=== PATIENT | female | born 1995 | race Caucasian/White ===

== ENCOUNTER 2024-11-08 10:56 | Outpatient (CLI) | payer OTHER, SELFPAY ==
[2024-11-08 11:39] LABS: Hematocrit 33.9 % (37.0-47.0); Hemoglobin 11.5 g/dL (12.0-15.0); Immature Platelet Fraction Pct 28.9 % (0.9-11.2); Mean Corpuscular HGB Conc 33.9 g/dl (32-36); Mean Corpuscular Hemoglobin 28.5 pg (26-34); Mean Corpuscular Volume 84.1 fl (80-100); Platelet Count Result 86 k/mm3 (150-375); Red Blood Count 4.03 M/mm3 (4.2-5.4); Red Cell Distribution Width 16.5 % (11.5-14.5); White Blood Count 10.4 K/mm3 (4.5-10.0)
[2024-11-08 11:55] LABS: Alanine Aminotransferase 15 U/L (6-35); Albumin Level 3.7 g/dL (3.5-5.1); Alkaline Phosphatase 50 U/L (38-126); Anion Gap 10 mmol/L (4-12); Aspartate Amino Transferase 16 U/L (14-36); Bilirubin,Total 0.2 mg/dL (0.2-1.3); Blood Urea Nitrogen 7 mg/dL (7-17); Calcium 8.9 mg/dL (8.4-10.2); Carbon Dioxide 22 mmol/L (22-30); Chloride 104 mmol/L (98-107); Estimated Glomerular Filt Rate > 60; Glucose 92 mg/dL (65-110); Potassium 3.7 mmol/L (3.4-5.0); Sodium 136 mmol/L (137-145); Uric Acid 3.4 mg/dL (2.5-7.5)
[2024-11-08 12:27] LABS: Hepatitis B Surface Antigen Negative (Negative); Rubella IgG Antibody 13.7 IU/ML
--- OUTSIDE RECORDS SUMMARY | 2024-11-08 12:37 | XMS_ITS | Data Portability ---
Author Organization [facility] Address [address] [place] [address] Care Team Providers Care Recruiting Manager Name Role Phone RONAK GUY Primary Care Provider Unavaila ble Assessment Encounter Date Assessment Date Assessment LastModified by Organization Details LastModified Time 05/22/2022 05/22/2022 27 yo; PMHx of anxiety / depression; presenting for contraceptive care. [email or web address] Not available 05/25/2022 00:27:06 11/29/2023 11/29/2023 Will start Zoloft 25 mg daily hydroxyzine 25 twice daily as needed for anxiety we will obtain blood work. She will let me know in a couple weeks by calling the office with an update in her condition otherwise regular visit in 4 months she was advised to see CLINICAL ACCOUNT SPECIALIST yearly she says it has been a year or 2 since last Pap advised to stay up-to-date on immunizations [email or web address] Not available 11/29/2023 23:08:29 Plan of Treatment Reminders Order Date Submit Date Provider Last Modified By Organization Details Last Modified Time Details Appointments None recorded. Lab lipid panel, serum 2023 024 [email or web address] [facility], [address] [facility] [address], [place], [address], 4 15:22:51 CMP, serum or plasma 2023 024 [id number] [facility], [address] [facility] [address], [place], [address], 4 15:22:51 CBC w/ auto diff 2023 024 [facility], [address], [address], [place], [address], 4 15:22:51 TSH, ultra-sens itive, serum 2023 024 [email or web address] [facility], [address] [facility] [address], [place], [address], 4 15:22:51 unlisted lab - T4, free 2023 024 [email or web address] [facility], [address] [facility], [place], [address], 4 15:22:51 T3, free, serum or plasma 2023 024 [email or web address] [facility], [address] [facility], [place], [address], 4 15:22:51 urinalysis , dipstick 2021 022 PAULO In-Office Order, Internal Use Only DO Not Attach Compendium DO Not Attach Compendium, Do Not Delete/merge, [id number] 11:45:56 vaginal pathogens panel, RUCHI+probe, vaginal fluid 2021 022 PAULO [facility], [address] [facility], [place], [address], 2 20:08:21 culture, urine 2021 022 PAULO [facility], [address], [address], [place], [address], 2 20:08:22 Referral None recorded. Procedures None recorded. Surgeries None recorded. Imaging None recorded. Medication Orders Zoloft 25 mg tablet 2023 [facility] #[id number], [address], [place], [place], [id number], 4 15:23:23 hydroxyzin e HCl 25 mg tablet 2023 024 [facility] #[id number], [address], [place], [place], [id number], 4 15:23:28 venlafaxin e ER 75 mg capsule,ex tended release 24 hr 2021 [facility][id number], [address], [place], [id number], 4 14:33:14 hydroxyzin e HCl 25 mg tablet 2021 022 [facility], [address], [place], [id number], 14:32:37 Patient TargetsNo targets recorded. Patient Instructions Encounter Date Encounter Id Patient Instructions Last Modified By Organization Details Last Modified Time 11/06/2021 [id number] I was present and available in the Family Medicine clinic to discuss this patient's care during the appointment. I agree with the resident's assessment and plan as documented. Gilberto Rosado [email or web address] Not available 11/07/2021 08:54:16 11/27/2021 [id number] I was present and available in the Family Medicine clinic to discuss this patient's care for the duration of the appointment. I agree with the resident's assessment and plan as documented with the following addendum: None. Dr. Jameel Godinez MD Attending Physician, [facility]. [email or web address] Not available 12/07/2021 19:45:01 04/08/2022 [id number] I was present and available in the Family Medicine clinic to discuss this patient's care during the appointment. I agree with the resident's assessment and plan as documented. KGR [email or web address] Not available 04/15/2022 09:07:18 05/22/2022 [id number] I was present and available in the family medicine clinic to discuss the patient's care during the appointment and the case was discussed with me. I agree with the resident's assessment and plan as documented. HL [email or web address] Not available 05/25/2022 14:38:01 Reason for Referral None Reported. Results Created Date Observation Date Name Description Value Unit Range Abnormal Flag Note LastModifiedBy Organization Detail LastModifiedTime 04/08/20 22 04/10/2022 NUSWA B VAGIN ITIS PLUS (VG+) atopobium vaginae Modera te - 1 score Not Available [facility] ([facility]) [address] [facility], [place], [address], 04/16/2022 20:08:21 04/08/20 22 04/10/2022 NUSWA B VAGIN ITIS PLUS (VG+) bvab 2 High - 2 score abnormal Not Available [facility] ([facility]) [address] [facility], [place], [address], 04/16/2022 20:08:21 04/08/20 22 04/10/2022 NUSWA B VAGIN ITIS PLUS (VG+) megasphaera 1 High - 2 score abnormal Calcu late total score by jama g the 3 indiv idual bacte rial vagin osis (BV) marke r score s toget her. Total score is inter prete d as follo ws: Total score 0-1: Indic ates the absen ce of BV. Total score 2: Indet ermin ate for BV. Addit ional clini parag data shoul d be evalu ated to estab gustavo a diagn osis. Total score 3-6: Indic ates the prese nce of BV. This test was devel oped and its perfo rmanc e shawn cteri stics deter mined by [facility]. It has not been clear ed or appro kristen by the Food and Drug Admin istra tion. Not Available [facility] ([facility]) [address] [facility], [place], [address], 04/16/2022 20:08:21 04/08/20 22 04/10/2022 NUA B VAGIN ITIS PLUS (VG+) joe albicans, RUCHI Negati ve negati ve Not Available [facility] ([facility]) [address] [facility], [place], [address], 04/16/2022 20:08:21 04/08/20 22 04/10/2022 NUSWA B VAGIN ITIS PLUS (VG+) joe glabrata, RUCHI Negati ve negati ve Not Available [facility] ([facility]) [address] [facility], [place], [address], 04/16/2022 20:08:21 04/08/20 22 04/16/2022 NUA B VAGIN ITIS PLUS (VG+) trich vag by RUCHI TNP Test not perfo rmed. Insuf ficie nt speci men to perfo rm or compl ete sruthi sis. Not Available [facility] ([facility]) [address] [facility] [address] [facility], [place], [address], 04/16/2022 20:08:21 04/08/20 22 04/16/2022 NUA B VAGIN ITIS PLUS (VG+) chlamydia trachomatis, RUCHI TNP Test not perfo rmed. Insuf ficie nt speci men to perfo rm or compl ete sruthi sis. Not Available [facility] ([facility]) [address] [facility], [place], [address], 04/16/2022 20:08:21 04/08/20 22 04/16/2022 NUA B VAGIN ITIS PLUS (VG+) neisseria gonorrhoeae, RUCHI TNP Test not perfo rmed. Insuf ficie nt speci men to perfo rm or compl ete sruthi sis. Not Available [facility] ([facility]) [address] [place], [address], 04/16/2022 20:08:21 04/08/20 22 04/09/2022 URINE CULTU RE, ROUTI NE urine culture, routine TNP Test not perfo rmed. No urine speci men was recei kristen for cultu re. Not Available [facility] ([facility]) [address] [place], [address], 04/16/2022 20:08:22 04/08/20 22 04/09/2022 SPECI MEN STATU S REPOR T specimen status report TNP Test not perfo rmed. No urine speci men was recei kristen for cultu re. TEST: [id number] Urine Cultu re, Routi ne Not Available [facility] ([facility]) [address] [place], [address], 04/16/2022 20:08:23 04/08/20 22 04/16/[address] PROBL EM request problem TNP Test not perfo rmed. Insuf ficie nt speci men to perfo rm or compl ete sruthi sis. TEST: [id number] 7 Trich vag by RUCHI Panel : 1 [id number] 7 Chlam ydia trach omati s, RUCHI Panel : 1 [id number] 4 Neiss eria gonor rhoea e, RUCHI Panel : [id number] 1 Not Available [facility] ([facility]) [address] [place], [address], 04/16/2022 20:08:23 04/08/20 22 04/08/2022 urina lysis , dipst ick Leukocytes Small Not Available In-Offi ce Order Internal Use Only DO Not Attach Compendium DO Not Attach Compendium, Do Not Delete/merge, [id number] 04/08/2022 10:34:48 04/08/20 22 04/08/2022 urina lysis , dipst ick Nitrite negati ve Not Available In-Office Order Internal Use Only DO Not Attach Compendium DO Not Attach Compendium, Do Not Delete/merge, [id number] 04/08/2022 10:34:48 04/08/20 22 04/08/2022 urina lysis , dipst ick Urobilinogen .2 Not Available In-Of fice Order Internal Use Only DO Not Attach Compendium DO Not Attach Compendium, Do Not Delete/merge, 04/08/2022 10:34:48 04/08/20 22 04/08/2022 urina lysis , dipst ick Protein Negati ve Not Available In-Office Order Internal Use Only DO Not Attach Compendium DO Not Attach Compendium, Do Not Delete/merge, 04/08/2022 10:34:48 04/08/20 22 04/08/2022 urina lysis , dipst ick pH 5.0 Not Available In-Office Order Internal Use Only DO Not Attach Compendium DO Not Attach Compendium, Do Not Delete/merge, 04/08/2022 10:34:48 04/08/20 22 04/08/2022 urina lysis , dipst ick Blood Negati ve Not Available In-Office Order Internal Use Only DO Not Attach Compendium DO Not Attach Compendium, Do Not Delete/merge, 04/08/2022 10:34:48 04/08/20 22 04/08/2022 urina lysis , dipst ick Specific [place] 1.025 Not Available In-Off ice Order Internal Use Only DO Not Attach Compendium DO Not Attach Compendium, Do Not Delete/merge, 04/08/2022 10:34:48 04/08/20 22 04/08/2022 urina lysis , dipst ick Ketone Trace Not Available In-Office Order Internal Use Only DO Not Attach Compendium DO Not Attach Compendium, Do Not Delete/merge, 04/08/2022 10:34:48 04/08/20 22 04/08/2022 urina lysis , dipst ick Bilirubin Negati ve Not Available In-Office Order Internal Use Only DO Not Attach Compendium DO Not Attach Compendium, Do Not Delete/merge, 04/08/2022 10:34:48 04/08/20 22 04/08/2022 urina lysis , dipst ick Glucose Negati ve Not Available In-Office Order Internal Use Only DO Not Attach Compendium DO Not Attach Compendium, Do Not Delete/merge, 04/08/2022 10:34:48 04/08/20 22 04/08/2022 urina lysis , dipst ick Appearance Cloudy Not Available In-Offi ce Order Internal Use Only DO Not Attach Compendium DO Not Attach Compendium, Do Not Delete/merge, [id number] 04/08/2022 10:34:48 04/08/20 22 04/08/2022 urina lysis , dipst ick Color Dark Yellow Not Available In-Office Order Internal Use Only DO Not Attach Compendium DO Not Attach Compendium, Do Not Delete/merge, [id number] 04/08/2022 10:34:48 Result Notes None recorded. Problems Name Problem SNOMED Code Status Onset Date Resolution Date Notes Provider Name and Address Organization Details Recorded Time Generali zed anxiety disorder 25031917 Active 2017 Sage [place], [place] - [facility] 8 08:57:32 Tobacco user 181364210 Active 2018 2-3 cigarette s a day Kerrie [place], [place] - [facility] 9 15:21:37 Pregnanc y 79295512 Completed 201908/21/2020 ASHLEY [place], [place] - [facility] 1 16:17:45 Vulval pain 430210933 Active 2019 Prev healthy 25 pt at 23w4d presents for L labia minora pain and swelling x1 day. On exam, L labia minora swelling & tendernes s without any lesions, fluctuanc e or erythema. DDx developin g abscess vs early onset genital herpes. -Pt seen with attending physician , will empirical ly treat for genital herpes primary outbreak and abscess -Pain control with PRN tylenol, cool compress -F/u in office in 1 day -Discusse d with primary OB, Dr. Franco -Send for HSV testing -ER precautio ns include but not limited to worsening pain/redn ess/swell ing/fever s/chills Caitie [place], [place] - [facility] 0 13:39:07 Plantar fasciiti s 163118425 Active 2019 ASH[place], [place] - [facility] 17:07:38 Plantar fasciiti s 656302565 Completed 2019 Natalia Tyson MA null, [facility] SI 17:07:38 COVID-19 211902690 Active 2020 Kerrie Joan null, [facility] SI 15:21:18 Anxiety 49938062 Active 2023 Shawn Cruz MD Attn: Froilan tipton,[address] [facility], [place], [address] [place] [address] - [facility] 4 23:08:40 Problem Notes None recorded. Procedures Surgical History Date Name Laterality Status Provider Name and Address Organization Details Recorded Time 2 IUD Removal completed Kerrie Joan [facility] 11/06/2021 14:46:00 1 IUD Insertion completed [facility] Joan [facility] 12/20/2020 11:06:57 9 Control Implant Removal completed Kerrie Joan [facility] 06/14/2019 15:26:13 Imaging Results None recorded. Procedure Notes None recorded. Medical Equipment None Reported. Allergies No known drug allergies Medications Name Sig Start Date Stop Date Status Note LastModified by Organization Details LastModified Time Mirena 21 mcg/24 hr (up to 8 years) 52 mg intrauterin e device Take 1 device by intrauter ine route. 11/28 completed Not Available Not Available Not Available venlafaxine ER 75 mg capsule,ext ended release 24 hr Take 1 capsule every day by oral route. 11/28 completed Not Available Not Available Not Available Vitamin B-6 25 mg tablet Take 1 tablet nightly 11/27 completed Not Available Not Available Not Available ketoconazol e 2 % shampoo APPLY TO THE AFFECTED AREA(S), LATHER, LEAVE IN PLACE FOR 5 MINUTES, AND THEN RINSE OFF WITH WATER BY TOPICAL ROUTE TWICE A WEEK FOR FOUR WEEKS 11/28 completed Not Available Not Available Not Available lidocaine 4 % topical patch unwrap and apply 1 patch to affected area daily, remove and discard patch within 12 hour after placement 11/28 completed Not Available Not Available Not Available clindamycin HCl 300 mg capsule 09/14 completed Not Available Not Available Not Available polyethylen e glycol 3350 17 gram oral powder packet Take 1 packet every day by oral route. 07/16 completed Not Available Not Available Not Available azithromyci n 250 mg tablet TAKE 2 TABLETS BY MOUTH FOR 1 DAY THEN TAKE 1 TABLET BY MOUTH EVERY DAY FOR 4 DAYS 11/28 completed Not Available Not Available Not Available fluconazole 150 mg tablet Take 1 tablet once. If symptoms persist may repeat treatment in 48 hours 05/02 completed Not Available Not Available Not Available cephalexin 250 mg capsule 06/10 completed Not Available Not Available Not Available ondansetron HCl 4 mg tablet Take 1 tablet every 8 hours by oral route as needed. 11/27 completed Not Available Not Available Not Available metronidazo le 500 mg tablet Take 1 tablet twice a day by oral route as directed for 7 days. 11/28 completed Not Available Not Available Not Available amlodipine 5 mg tablet TAKE 1 TABLET BY MOUTH EVERY DAY 11/28 completed Not Available Not Available Not Available acyclovir 400 mg tablet Take 1 tablet every 8 hours by oral route for 7 days. 11/28 completed Not Available Not Available Not Available sulfamethox azole 800 mg-trimetho prim 160 mg tablet 05/02 completed Not Available Not Available Not Available famotidine 20 mg tablet 11/27 completed Not Available Not Available Not Available metoclopram phill 5 mg tablet Take 1 tablet every 6-8 hours by oral route for 5 days. 11/27 completed Not Available Not Available Not Available DOK 100 mg capsule Take 1 capsule every day by oral route as directed for 30 days. 11/27 completed Not Available Not Available Not Available meclizine 25 mg tablet Take 1 tablet 3 times a day by oral route as needed. 11/27 completed Not Available Not Available Not Available phenazopyri dine 100 mg tablet 11/27 completed Not Available Not Available Not Available benzonatate 100 mg capsule TAKE 1 CAPSULE BY MOUTH THREE TIMES DAILY FOR 10 DAYS 11/28 completed Not Available Not Available Not Available cephalexin 500 mg capsule Take 1 capsule every 8 hours by oral route for 5 days. 06/10 completed Not Available Not Available Not Available ferrous sulfate 325 mg (65 mg iron) tablet TAKE 1 TABLET BY MOUTH EVERY DAY 11/27 completed Not Available Not Available Not Available sertraline 25 mg tablet TAKE 1 TABLET BY MOUTH EVERY DAY active Not Available Not Available No t Available hydroxyzine HCl 25 mg tablet TAKE 1 TABLET BY MOUTH TWICE DAILY NEEDED active Not Available Not Available No t Available ibuprofen 600 mg tablet 11/27 completed Not Available Not Available Not Available polyethylen e glycol 3350 17 gram/dose oral powder Take 17 g by oral route as directed for 30 days. 11/27 completed Not Available Not Available Not Available methylpredn isolone 4 mg tablets in a dose pack FOLLOW PACKAGE DIRECTION S 11/28 completed Not Available Not Available Not Available sertraline 50 mg tablet TAKE 1 TABLET BY MOUTH EVERY MORNING 05/09 completed Not Available Not Available Not Available Unisom (doxylamine ) 25 mg tablet Take 1 tablet nightly 11/27 completed Not Available Not Available Not Available amoxicillin 500 mg-potassiu m clavulanate 125 mg tablet Take 1 tablet every 12 hours by oral route for 5 days. 05/02 completed Not Available Not Available Not Available hydroxyzine pamoate 25 mg capsule Take 1 capsule 4 times a day by oral route as needed. 12/15 completed Not Available Not Available Not Available cyclobenzap rine 5 mg tablet TK 1 T PO BID FOR 10 DAYS PRN 11/28 completed Not Available Not Available Not Available Tylenol 8 Hour 650 mg tablet,exte nded release Take 1 tablet every 8 hours by oral route. 11/27 completed Not Available Not Available Not Available escitalopra m 5 mg tablet Take 1 tablet every day by oral route. 12/11 completed Not Available Not Available Not Available nitrofurant oin monohydrate /macrocryst als 100 mg capsule Take 1 capsule every 12 hours by oral route for 5 days. 11/28 completed Not Available Not Available Not Available Dandruff Shampoo (selenium sulfide-gary e) 1 % Massage shampoo into wet scalp then rinse thoroughl y 05/02 completed Not Available Not Available Not Available butalbital- acetaminoph en-caffeine 50 mg-300 mg-40 mg capsule TAKE 1 CAPSULE BY MOUTH EVERY 8 HOURS NEEDED 11/28 completed Not Available Not Available Not Available Cyndi 08/28 (21) 1 mg-20 mcg tablet Take 1 tablet every day by oral route. 05/02 completed Not Available Not Available Not Available Annelise 0.25 mg-0.035 mg tablet Take 1 tablet every day by oral route. 11/28 completed Not Available Not Available Not Available ID NOW COVID-19 Test Kit TEST DIRECTED TODAY 11/28 completed Not Available Not Available Not Available Flowflex COVID-19 Antigen Home Test kit TEST DIRECTED TODAY 11/28 completed Not Available Not Available Not Available Vitals Date Recorded Body height Body mass index (BMI) Body weight Heart rate Body temperature Oxygen saturation Oxygen saturation in Arterial blood by Pulse oximetry Systolic blood pressure Diastolic blood pressure Provider Name and Address Organization Details Last Updated DateTime 2 157.48 cm 27.3 kg/m2 01450.2 6 g 82 /min 98.1 [degF] 97 % 97 % 132 mm[Hg] 84 mm[Hg] Jarod Lr CMA [facility] 2 12:34:22 Date Recorded Body height Body mass index (BMI) Body weight Heart rate Oxygen saturation Oxygen saturation in Arterial blood by Pulse oximetry Body temperature Systolic blood pressure Diastolic blood pressure Provider Name and Address Organization Details Last Updated DateTime 2 157.48 cm 28.4 kg/m2 03006.5 2 g 85 /min 95 % 95 % 98.5 [degF] 146 mm[Hg] 92 mm[Hg] Nikole Osman MA [facility] 2 16:18:31 Date Recorded Systolic blood pressure Diastolic blood pressure Provider Name and Address Organization Details Last Updated DateTime 11/27/2021 130 mm[Hg] 82 mm[Hg] Kerrie Franco [facility] 11/27/2021 16:26:23 Date Recorded Body height Body mass index (BMI) Body weight Body temperature Heart rate Oxygen saturation Oxygen saturation in Arterial blood by Pulse oximetry Systolic blood pressure Diastolic blood pressure Provider Name and Address Organization Details Last Updated DateTime 2 157.48 cm 27.4 kg/m2 74118.4 1 g 98.4 [degF] 93 /min 100 % 100 % 124 mm[Hg] 85 mm[Hg] Kathi Cook [place] - [facility] 2 10:17:55 Date Recorded Body height Body mass index (BMI) Body weight Body temperature Heart rate Oxygen saturation Oxygen saturation in Arterial blood by Pulse oximetry Systolic blood pressure Diastolic blood pressure Provider Name and Address Organization Details Last Updated DateTime 2 157.48 cm 27.3 kg/m2 96532.2 6 g 98.3 [degF] 74 /min 99 % 99 % 130 mm[Hg] 80 mm[Hg] Juliet Dong CMA [place] - [facility] 2 15:26:51 Date Recorded Body weight Body mass index (BMI) Body height Heart rate Body temperature Oxygen saturation Oxygen saturation in Arterial blood by Pulse oximetry Systolic blood pressure Diastolic blood pressure Provider Name and Address Organization Details Last Updated DateTime 4 11576.5 6 g 29.8 kg/m2 157.48 cm 92 /min 98.6 [degF] 98 % 98 % 132 mm[Hg] 86 mm[Hg] Reba Pak MA [place] - [facility] 4 14:43:32 Social History Question Answer Notes LastModified by Organizat ion Details LastModified Time Tobacco Smoking Status Former Smoker quit in 2015 Reba Pak MA [place], [place] - [facility] 11/29/2023 14:41:24 What Is Your Level Of Alcohol Consumption? Occasional Information not available 11/29/2023 Are You Blind Or Do You Have Difficulty Seeing? No Information not available 11/29/2023 Are You Deaf Or Do You Have Serious Difficulty Hearing? No Information not available 11/29/2023 What Was The Date Of Your Most Recent Tobacco Screening? 11/29/2023 Information not available 11/29/2023 What Is Your Relationship Status? Information not available 11/29/2023 Do You Use Your Seat Belt Or Car Seat Routinely? Yes Information not available 11/29/2023 How Much Tobacco Do You Smoke? 1 PPW [email or web address] Information not available 06/14/2019 Do You Feel Stressed (tense, Restless, Nervous, Or Anxious, Or Unable To Sleep At Night)? [id number] Information not available 11/29/2023 Do You Use Any Illicit Or Recreational Drugs? No Information not available 04/30/2021 On What Date Was Tobacco Cessation Counseling Provided? 11/29/2023 Information not available 11/29/2023 How Many Years Have You Smoked Tobacco? 3 Information not available 11/29/2023 Do You Or Have You Ever Used Any Other Forms Of Tobacco Or Nicotine? No Information not available 04/30/2021 Sex: Unknown Functional Status Question Answer Note LastModified by Organization D etails LastModified Time Are you able to care for yourself? Yes Information n ot available 11/29/2023 Mental Status None recorded. Family History Nothing Reported. Medical History Condition Response Depression Y Anxiety Disorder Y Gynecological History Statement/Question Response Flow Moderate Frequency of Cycle (Q days) 90 Date of LMP 06/14/2019 Menses Monthly Y Duration of Flow (days) LMP Definite Obstetrics History GPAL:G 4 P 2 0 1 2 Type Value Full Term 2 Spontaneous 1 Living 2 Total 4 Immunizations Vaccine Type Date Status Note Provider Nam e and Address Organization Details Recorded Time COVID-19, mRNA, LNP-S, PF, 100 mcg/0.5mL dose or 50 mcg/0.25mL dose 1 completed Mirella Almeida null, [place] - [facility] 01/16/2021 10:41:07 Influenza, split virus, quadrivalent, preservative 0 completed Venita Trevino [place], [place] [facility] 05/23/2020 10:26:36 Tdap 0 completed Jovani Santiago CMA [place], [place] [facility] 06/03/2020 14:22:42 COVID-19, mRNA, LNP-S, PF, 30 mcg/0.3 mL dose 1 completed Mercedes Fierro RN null, [place] - [facility] 04/04/2021 10:18:59 Past Encounters Encounter ID Performer Location Encounter Start Date Encounter Closed Date Diagnosis/Indication Diagnosis SNOMED-CT Code Diagnosis ICD10 Code Diagnosis Note [id number] Chris Foster MD [place] [address] [address] [address] 12/07/2017 11:14:17 12/07/2017 13:38:20 Generalized anxiety disorder 83277574 F41.1 PARVEZ vs. Panic disorderGA D 7: Score 21PHQ-9: 17BP 152/94. Likely 2/2 anxiety. Patient declined BP re-check, states that it makes her more anxious. Patient also states she gets very anxious in social settings, especially with going to see the doctor. No hx of HTN. No SI or HI.Start Zoloft 50 mg PO daily. Given short script of Vistaril for emergency use only. F/u 6 weeks [id number] Mitzi Fallon MD [place] [address] [address] 12/15/2017 10:35:54 12/16/2017 13:05:20 Generalized anxiety disorder 61529771 F41.1 Mixed anxiety and depressive disorder +/- panic disorder. Prior hospitaliz ation x1 for panic attack. Started on zoloft 50/d x2 weeks ago with subjective improvemen t. Concerned about nighttime sedation with hydroxyzin e 25/qid prn. BP elevated, pt states no hx of HTN and attributes to anxiety with healthcare settings. PARVEZ 7: Score 21 (unchanged )PHQ-9: 18 (previousl y 17)No SI/HI - measure BP at home and record for next visit- RTC 1 month for new pt visit, mood/anxie ty follow-up- Rx for hydroxyzin e tablets instead of capsules, break in 1/2 for nighttime doses given unwanted/e xcessive sedation.- continue zoloft 50/d, titrate as needed next visit- repeat PHQ-9 and PARVEZ-7 each visit- consider counseling /CBT- encouraged daily exercise [id number] Mitzi Fallon MD [place] [address] [address] 05/04/2018 12:07:52 05/04/2018 13:54:54 Right upper quadrant pain [id number] R10.11 Suspect right upper quadrant pain secondary to cholelithi asis will get CMP and ultrasound to evaluate. Abnormal u terine bleeding [id number] 9100 N93.9 Patient has experience d frequent light menstrual bleeding throughout the course of the month while on her Nexplanon. Patient reports that her nexplanon placed almost 2 years ago. Bleeding 2x per month has been fairly persistent for the past 6-7 months. At today's visit requesting to have her Nexplanon removed however willing to trial course of OCPs to see if this helps alleviate the bleeding prior to deciding if Nexplanon removal is the right choice. Generalize d anxiety disorder [id number] F41.1 Patient reports her symptoms have been fairly well controlled on the sertraline however continues to experience a dizziness sensation with taking the 50 mg. Patient reports discontinu ed the 50 and has been taking 25 mg over the past month and this has alleviated the dizziness sensation. -Will decrease sertraline to 25 mg daily -Continue hydroxyzin e at 25 mg as needed [id number] Afsaneh Lebron MD [facility] [address] [address] 06/14/2019 11:45:29 06/15/2019 09:33:46 Menorrhagia [id number] N92.0 Pt reports irregular menses since having Nexplanon placed in 09/2016. Reports menses occur for around 3 months at a time. Uses 3-4 pads/day.- Will check CBC and evaluate for anemia given prolonged bleeding-W ill remove Nexplanon today. Pt aware that bleeding may still persist despite removal Removal of subcutaneous contraceptive [id number] Z30.46 Nexplanon in left UE. Pt desired removal for menorrhagi a. Counseled on various methods of contracept ion, including their relative respective efficacies and side effects. Pt does not want to use an alternativ e method of contracept ion at this time as she is with a female partner. Counseled patient on continued protection against STD's. Pt declined STD testing at this time- s/p removal today without complicati on Generalize d anxiety disorder [id number] F41.1 Previously on Zoloft but self discontinu ed because she felt it made her too tired. Currently taking Hydroxyzin e HCl 25mg as needed for symptoms-W ill start Lexapro 5mg. Advised patient to take 5mg for 1 week and if tolerating well can increase to 10mg dailyRTC 4-6 weeks Seborrheic dermatitis of scalp [id number] L21.0 Pt requesting shampoo for dandruff and dry scalp Tobacco user [id number] Z 72.0 Currently smoking 3-4 cigarettes a dayEncoura ge smoking cessation. Pt precontemp lative at [facility] [id number] [facility] [address] [address] 09/14/2019 11:30:32 09/19/2019 11:40:16 Generalized anxiety disorder [id number] F41.1 Pt previously on Zoloft and Lexapro but self discontinu ed both medication s due to side effects. Pt would still like to proceed with trying medication to help with anxiety.-W ill start Effexor 75mg daily-Cont inue Hydroxyzin e as needed for severe anxietyRTC in 3 months Seborrheic dermatitis of scalp [id number] L21.0 Improving with Ketoconazo le. Will refill medication [id number] Evelin Lopezomis [facility] [address] [address] 12/12/2019 12:16:23 12/15/2019 07:53:48 Generalized anxiety disorder 44041048 F41.1 Chronic, improvingP t reports significan t improvemen t with Effexor. Reports some withdrawal symptoms when not taking medication which is expected. Discussed importance of taking medication daily.-Con tinue Effexor 75mg. Will leave at current dose.-Repe at PARVEZ 7 at subsequent visitRTC in 3 months [id number] [facility] [address] [address] 12/20/2019 11:46:38 12/21/2019 09:33:49 Vomiting of [id number] O21.9 Pt to start pyrodoxine and doxylamine today.Eat small meals.Eat foods that seem appealing, do not force eat unappealin g foods.F/u in 2 weeks. [id number] Isrrael Gaines MD [facility] [address] [address] 12/25/2019 16:28:43 12/28/2019 00:12:28 Low back pain 423097443 M54.5 Acute, unresolved Pain is associated with abdominal cramping and diarrhea. Low concern for pyelonephr itis or any renal etiology. U/A with small leuk esterase. Given risk of untreated UTI in will start Augmentin. If culture is negative patient can discontinu e medication Viral gastroenteritis 11 [id number] A08.4 Acute, unresolved -Discussed importance of remaining hydrated-S trict ED precaution s provided to patient, if unable to keep water down or maintain hydration then patient should proceed to the ER. Pt reports understand ing-Review ed medication s that are safe to take during - If diarrhea continues can consider c.diff testing given occupation [id number] Isrrael Gaines MD [facility] [address] [address] 01/02/2020 15:39:06 01/03/2020 21:32:44 Nausea 229670892 R11.0 Acute, improvingR ecommend continuing Unisom and B6 nightly as well as jordy candies and small frequent meals. Discussed safety of zofran with patient.-C ontinue zofran PRN-ER precaution s provided to patient Routine an tenatal care [id number] Z34.91 TVUS performed in clinic. HR appropriat e but unable to establish measuremen t of yolk sac. Gestation sac measuring around 7w6d. Patient will return for official visit and dating ultrasound in 3 weeks. [id number] Haley Freddie [facility] [address] [address] 01/23/2020 14:53:53 01/26/2020 12:07:18 Routine care [id number] Z34.89 yo G{{1 2 3 4 * 5 6 7 8 9}}P{{1 2* 3 4 5 6 7 8 9}} female JOSE: {{Sep y Mar D ec}}{{1 2 3 4 5 6 7 8 9 10 11 12 13 14* 15 16 17 1 8 19 20 21 22 23 24 25 26 27 2 8 30 31}}{ {2020# 201 7 2018 201 9}} based on {{1st trimester US 2nd trimester US 3rd trimester US LMP*}} PMH: Anxiety complicate d by: First trimester bleeding requiring Rhogam, history of pre-eclamp samaria and GDM Rh: {{positive negative* }} : {{no* yes} } IPN labs: {{normal* abnormal}} BMI*: {{normal 2 5-30* grea ter than 30}} Depression screen: {{negative * positive }} Flu shot: {{given de clined to be given in season Mar-Oct*}} 1st trimester US: {{normal a bnormal* n ot done}} -subchorio katt hemorrhage , otherwise normal MSAFP: {{negative positive will order at 15-19 weeks coun seling done, ordered co unseling done, declined* too late to care}} CF screen: {{negative * positive declined not done}} -Recommend ASA at 12 weeks for history of pre-E-Cont inue Zoloft-Zof ran PRN nausea RTC in 4 weeks Subchorionic hematoma 60 [id number] O41.8X99 Acute, stable-Hem orrhage appears stable on imaging-Di scussed natural progressio n of subchorion ic hemorrhage . Strict ED precaution s provided to patient Bleeding f rom female genital tract during [id number] 1787131 O46.91 Acute, resolvedPt received Rhogam in 1st trimester for bleeding. WIll need repeat between 26-28 weeks for Rh- status Elevated blood-pressure reading without diagnosis of hypertension 340045356 R03.0 Pt has history of elevated blood pressure readings prior to . Pt has white coat hypertensi on. Previously tearful during visits when getting blood pressure taken. Patient also has history of pre-eclamp samaria which may make it difficult to differenti ate between chronic hypertensi on and gestationa l hypertensi on. Recommend baseline CMP, A1C and 24 hour urinary protein [id number] Caitie Torre [address] [facility] [address] [place] [address] 02/01/2020 12:56:13 02/08/2020 13:12:31 Otalgia of left ear [id number] 611017 H92.02 24 yo F presents with L otalgia x3 days with radiation to jaw with no other symptoms. On exam, L EAC ceruminous , irrigated. After irrigation , no abnormalit ies on exam. Pain likely due to ear wax.-F/u with PCP as needed [id number] Leonarda Mohr MD [facility] 47 [address] [facility] [address] [place] [address] 02/27/2020 14:46:38 02/28/2020 07:27:25 Past history of pre-eclampsia [id number] 03826 Z87.59 Patient has multiple elevated blood pressures recorded however on repeat measuremen ts BP usually WNL. Pt has never recieved diagnosis of chronic hypertensi on. Baseline Cr within normal limits. Will get 24 hour urine protein as baseline. High risk 4720 0007 O09.92 Routine an tenatal care [id number] Z34.91 yo G{{1 2 3 4 * 5 6 7 8 9}}P{{1 2* 3 4 5 6 7 8 9}} female JOSE: {{Sep M jan y Mar D ec}}{{1 2 3 4 5 6 7 8 9 10 11 12 13 14* 15 16 17 1 8 19 20 21 22 23 24 25 26 27 2 8 30 31}}{ {2020# 201 7 2018 201 9}} based on {{1st trimester US 2nd trimester US 3rd trimester US LMP*}} PMH: Anxiety complicate d by: First trimester bleeding requiring Rhogam, history of pre-eclamp samaria and GDM Rh: {{positive negative* }} : {{no* yes} } IPN labs: {{normal* abnormal}} BMI*: {{normal 2 5-30* grea ter than 30}} Depression screen: {{negative * positive }} Flu shot: {{given de clined to be given in season Mar-Oct*}} 1st trimester US: {{normal a bnormal* n ot done}} -subchorio katt hemorrhage , otherwise normal MSAFP: {{negative positive will order at 15-19 weeks coun seling done, ordered co unseling done, declined* too late to care}} CF screen: {{negative * positive declined not done}} -Pt currently taking ASA-Contin ue Zoloft-Zof ran PRN nausea-Jorje l send to MFM given history of Pre-E and GDM RTC in 4 weeks [id number] Haley Frazier [facility] 47 [address] [facility] [address] [place] [address] 03/27/2020 11:44:38 03/28/2020 17:18:11 Pain in pelvis 27038143 R10.2 Acute, intermitte ntDDx: UTI vs yeast infection vs round ligament painVagina l discharge on exam however may be physiologi c. U/A not indicative of infection. Reassuring that pain improves after sitting in warm bath. Most likely round ligament pain-Will get urine culture to be complete-N uswab pending-ER percaution s provided Routine an tenatal care [id number] Z34.91 yo G{{1 2 3 4 * 5 6 7 8 9}}P{{1 2* 3 4 5 6 7 8 9}} female JOSE: {{Sep M ay Jan y Mar D ec}}{{1 2 3 4 5 6 7 8 9 10 11 12 13 14* 15 16 17 1 8 19 20 21 22 23 24 25 26 27 2 8 30 31}}{ {2020# 201 7 2018 201 9}} based on {{1st trimester US 2nd trimester US 3rd trimester US LMP*}} PMH: Anxiety complicate d by: First trimester bleeding requiring Rhogam, history of pre-eclamp samaria and GDM Rh: {{positive negative* }} : {{no* yes} } IPN labs: {{normal* abnormal}} 1st trimester US: {{normal a bnormal* n ot done}}-sub chorionic hemorrhage , otherwise normal, now resolved-C ontinue ASA-Contin ue Zoloft-Has upcoming appointmen t on 04/03 with [facility] and for anatomy scan Routine care as below - 20 wk anatomy ultrasound - 26-28 wk Rhogam shot - 28 wk CBC, GTT, Tdap, repeat dep screen - 32 wk repeat STI screening (if high risk) - 35-37 wk GBS neg/pos; confirm vertex position w/ bedside US - 39 wk -- SVE, optional membrane sweeping, consider IOL planning RTC in 4 weeks [id number] Cait Parrish MD [facility] [address] [facility] [address] [place] [address] 04/25/2020 15:29:56 04/26/2020 09:23:58 Routine care [id number] Z34.91 yo G{{1 2 3 4 * 5 6 7 8 9}}P{{1 2* 3 4 5 6 7 8 9}} female JOSE: {{Sep M ay Jan y Mar D ec}}{{1 2 3 4 5 6 7 8 9 10 11 12 13 14* 15 16 17 1 8 19 20 21 22 23 24 25 26 27 2 8 30 31}}{ {2020# 201 7 2018 201 9}} based on {{1st trimester US 2nd trimester US 3rd trimester US LMP*}} PMH: Anxiety complicate d by: First trimester bleeding requiring Rhogam, history of pre-eclamp samaria and GDM Rh: {{positive negative* }} : {{no* yes} } IPN labs: {{normal* abnormal}} 1st trimester US: {{normal a bnormal* n ot done}}-sub chorionic hemorrhage , otherwise normal, now resolved- Continue ASA (recently increased to 162 mg per MFM)- Scheduled for follow up on April 30 with MFM with 4 week growth scan - Continue Zoloft - 26-28 wk Rhogam shot - 28 wk CBC, GTT, Tdap, repeat dep screen - 32 wk repeat STI screening (if high risk) - 35-37 wk GBS neg/pos; confirm vertex position w/ bedside US - 39 wk -- SVE, optional membrane sweeping, consider IOL planning RTC in 1 week as scheduled with primary physician, sooner if needed Abdominal pain [id number] R10.9 Acute, stableAbom inal exam benign, recent L&D encounter reviewedSu spect symptoms could be secondry to constipati on vs round ligament pain. No red flag symptoms.- Start bowel regimen: scheduled colace, miralax, and OTC fiber- Strict L&D precaution s given- Abdominal binder for uterine support- RTC in 1 week [address] scheduled [address] Dr. Franco [id number] MD [facility] [address] [facility] [address] [place] [address] 04/29/2020 11:39:05 04/30/2020 07:51:15 Vulval pain [id number] R10.2 Prev healthy 24 pt at 23w4d presents for L labia minora pain and swelling x1 day. On exam, L labia minora swelling & tenderness without any lesions, fluctuance or erythema. DDx developing abscess vs early onset genital herpes.-Pt seen with attending physician, will empiricall y treat for genital herpes primary outbreak and abscess-Pa in control with PRN tylenol, cool compress-F /u in office in 1 day-Discus sed with primary OB, Dr. Frnaco-S end for HSV testing-ER precaution s include but not limited to worsening pain/redne ss/swellin g/fevers/c hills [id number] Isrrael Gaines MD [facility] 47 [address] [facility] [address] [place] [address] 04/30/2020 11:41:17 05/01/2020 13:12:11 Vulval pain 669653244 R10.2 Prev healthy 24 pt at 23w presents for L labia minora pain and swelling x1 day, resolved with warm shower, cold compress and 1 day of keflx & acyclovir. DDx developing abscess-D/ c acyclovir - unlikely HSV given no lesions - will f/u on HSV swab-Luis Fernando nue keflex-Dec lining exam today Pain in lower limb 21790 006 M79.606 B/L LE pain at night x2 days w/o swelling, tenderness . Normal exam. Likely fatigue vs muscle tightness. -Tylenol 500mg before bed - avoid nsaids in - Conservati ve care with warm bath, epsom salt bath, yoga, using foam roller [id number] [facility] [employer] [facility] 47 [address] [facility] [address] [place] [address] 05/02/2020 11:29:17 05/02/2020 20:42:46 Routine care [id number] Z34.91 yo G{{1 2 3 4 * 5 6 7 8 9}}P{{1 2* 3 4 5 6 7 8 9}} female JOSE: {{Sep M jan y Mar D ec}}{{1 2 3 4 5 6 7 8 9 10 11 12 13 14* 15 16 17 1 8 19 20 21 22 23 24 25 26 27 2 8 30 31}}{ {2020# 201 7 2017 201 9}} based on {{1st trimester US 2nd trimester US 3rd trimester US LMP*}} PMH: Anxiety complicate d by: First trimester bleeding requiring Rhogam, history of pre-eclamp samaria and GDM Rh: {{positive negative* }} : {{no* yes} } IPN labs: {{normal* abnormal}} 1st trimester US: {{normal a bnormal* n ot done}}-sub chorionic hemorrhage , otherwise normal, now resolved-C ontinue ASA, 162mg per MFM-Pt self discontinu ed zoloft, reports symptoms controlled -Serial growth ultrasound s q4 weeks-Will order 28 week labs-1 hr glucose screen today-Plan for Rhogam at next visit Routine care as below: - 20 wk anatomy ultrasound - 26-28 wk Rhogam shot - 28 wk CBC, GTT, Tdap, repeat dep screen - 32 wk repeat STI screening (if high risk) - 35-37 wk GBS neg/pos; confirm vertex position w/ bedside US - 39 wk -- SVE, optional membrane sweeping, consider IOL planning RTC in 4 weeks [id number] Haley Gawrys [facility] [address] [address] 05/23/2020 09:48:59 05/24/2020 14:56:57 Routine care [id number] Z34.91 yo G{{1 2 3 4 * 5 6 7 8 9}}P{{1 2* 3 4 5 6 7 8 9}} female JOSE: {{Sep M jan y Mar D ec}}{{1 2 3 4 5 6 7 8 9 10 11 12 13 14* 15 16 17 1 8 19 20 21 22 23 24 25 26 27 2 8 30 31}}{ {2020# 201 7 2017 201 9}} based on {{1st trimester US 2nd trimester US 3rd trimester US LMP*}} PMH: Anxiety complicate d by: First trimester bleeding requiring Rhogam, history of pre-eclamp samaria and GDM -Continue ASA, 162mg per MFM-Pt self discontinu ed zoloft, reports symptoms controlled -Serial growth ultrasound s q4 weeks. Next ultrasound scheduled for 05/27-Will order 28 week labs-1 hr glucose screen negative-P t provided for paper to recieve Rhogam in L&D next week-TDAP at next visit-Flu shot today Routine care as below: - 28 wk CBC, GTT, Tdap, repeat dep screen - 32 wk repeat STI screening (if high risk) - 35-37 wk GBS neg/pos; confirm vertex position w/ bedside US - 39 wk -- SVE, optional membrane sweeping, consider IOL planning RTC in 4 weeks Administra tion of influenza vaccine [id number] Z23 [id number] Leonarda Mohr MD [place] [address] [address] 06/03/2020 11:33:04 06/04/2020 10:30:00 Routine care [id number] Z34.91 yo G{{1 2 3 4 * 5 6 7 8 9}}P{{1 2* 3 4 5 6 7 8 9}} female JOSE: {{Sep M ay Jan y Mar D ec}}{{1 2 3 4 5 6 7 8 9 10 11 12 13 14* 15 16 17 1 8 19 20 21 22 23 24 25 26 27 2 8 30 31}}{ {2020# 201 7 2018 201 9}} based on {{1st trimester US 2nd trimester US 3rd trimester US LMP*}} PMH: Anxiety complicate d by: First trimester bleeding requiring Rhogam, history of pre-eclamp samaria and GDM -Continue ASA, 162mg per MFM-Pt self discontinu ed zoloft, reports symptoms controlled -Completed 28 week labs last week-1 hr glucose screen negative-R eceived Rhogam this past weekend-TD AP today; UTD on flu Routine care as below: - 32 wk repeat STI screening (if high risk) - 35-37 wk GBS neg/pos; confirm vertex position w/ bedside US - 39 wk -- SVE, optional membrane sweeping, consider IOL planning RTC in 4 weeks Sciatica [id number] M54.30 Acute, unresolved , stableNo red flag symptomsEx am and symptoms consistent with sciatica- Discussed starting exercises, handout and informatio n given- RTC if no improvemen t Active or passive immunization [id number] Z23 [id number] Conrad Villegas MD [facility] [address] [address] 06/12/2020 11:32:58 06/13/2020 08:05:16 Sciatica 11550739 M54.30 Acute, unresolved , stableNo red flag symptoms- Discussed continuing exercises and stretches - Continue flexeril and lidocaine patches, consider repeating 1 week course if symptoms do not improve- Referral to PT [facility] [id number] Leonarda Mohr MD [facility] 47 [address] [facility] [address] [place] [address] 06/21/2020 10:25:17 06/24/2020 08:56:06 Routine care [id number] Z34.91 yo G{{1 2 3 4 * 5 6 7 8 9}}P{{1 2* 3 4 5 6 7 8 9}} female JOSE: {{Sep M ay Jan y Mar D ec}}{{1 2 3 4 5 6 7 8 9 10 11 12 13 14* 15 16 17 1 8 19 20 21 22 23 24 25 26 27 2 8 30 31}}{ {2020# 201 7 2018 201 9}} based on {{1st trimester US 2nd trimester US 3rd trimester US LMP*}} PMH: Anxiety complicate d by: First trimester bleeding requiring Rhogam, history of pre-eclamp samaria and GDM -Continue ASA, 162mg per MFM-Pt self discontinu ed zoloft, reports symptoms controlled -Serial growth ultrasound s q4 weeks. Next ultrasound scheduled for 06/24-28 week labs reviewed: Hgb 9.3, platelets 128. Stressed importance of continuing to take iron-Rhoga m administer ed in L&D at 28 weeks-rece ived flu shot and TDAP Routine care as below: - 35-37 wk GBS neg/pos; confirm vertex position w/ bedside US - 39 wk -- SVE, optional membrane sweeping, consider IOL planning Pt requesting q2 week visits as she feels waiting 4 weeks increases anxiety RTC in 2 weeks per patient request Benign ges tational thrombocytopenia [id number] D69.59 Platelets have been slowly downtrendi ng. CBC from 06/18 with platelets of 106. No signs of active bleeding. Discussed signs/symp toms of thrombocyt openia with patient. Also discussed implicatio ns of thrombocyt openia and possible need for further discussion with anesthesio logist. Per discussion with FMOB will repeat labs in 3-4 weeks. Will include CMP as patient also with history of pre-eclamp samaria. Low concern for HEELP syndrome given normal CMP but will obtain to be complete [id number] Evelin Gould [facility] [address] [facility] [address] [place] [address] 06/26/2020 11:24:57 06/27/2020 07:42:52 Routine care 549479711 Z34.91 yo G{{1 2 3 4 * 5 6 7 8 9}}P{{1 2* 3 4 5 6 7 8 9}} female @ 31+6w with JOSE: {{Sep M jan y Mar D ec}}{{1 2 3 4 5 6 7 8 9 10 11 12 13 14* 15 16 17 1 8 19 20 21 22 23 24 25 26 27 2 8 30 31}}{ {2020# 201 7 2018 201 9}} based on {{LMP and c/w FTUS# 1st trimester US 2nd trimester US 3rd trimester US LMP}} PMH: Anxiety complicate d by: First trimester bleeding requiring Rhogam, history of pre-eclamp samaria and GDM, gestationa l thrombocyt openia, anemia of -Continue ASA, 162mg per MFM-Pt self discontinu ed zoloft, reports symptoms controlled -Serial growth ultrasound s q4 weeks. Next ultrasound to be scheduled by patient-28 week labs reviewed: Hgb 9.3, platelets 128. Stressed importance of continuing to take iron-Rhoga m administer ed in L&D at 28 weeks-rece ived flu shot and TDAP Routine care as below: - 35-37 wk GBS neg/pos; confirm vertex position w/ bedside US - 39 wk -- SVE, optional membrane sweeping, consider IOL planning Gave return precaution s and when to call L&D triage - f/u with PCP as scheduled in 2 weeks for LETICIA care Plantar fasciitis 842733 003 M72.2 Bilateral foot pain, physical exam consistent with plantar fasciitis pain- advised to use frozen water bottles to massage and roll out bottom of feet- gave stretches- may use tylenol as needed- reassuranc e given [id number] MD Yelitza Diaz 47 [address] [facility] [address] [place] [address] 07/08/2020 11:06:08 07/09/2020 09:47:40 Routine care 091103322 Z34.91 yo G{{1 2 3 4 * 5 6 7 8 9}}P{{1 2* 3 4 5 6 7 8 9}} female @ 31+6w with JOSE: {{Sep M ay Jan y Mar D ec}}{{1 2 3 4 5 6 7 8 9 10 11 12 13 14* 15 16 17 1 8 19 20 21 22 23 24 25 26 27 2 8 30 31}}{ {2020# 201 7 2018 201 9}} based on {{LMP and c/w FTUS# 1st trimester US 2nd trimester US 3rd trimester US LMP}} PMH: Anxiety complicate d by: First trimester bleeding requiring Rhogam, history of pre-eclamp samaria and GDM, gestationa l thrombocyt openia, anemia of -Continue ASA, 162mg per MFM-Pt self discontinu ed zoloft, reports symptoms controlled -Serial growth ultrasound s q4 weeks.-Due for repeat CBC-Contin ue iron-Rhoga m administer ed in L&D at 28 weeks-rece ived flu shot and TDAP-Inter ested in nexplanon post-partu m Routine care as below: - 35-37 wk GBS neg/pos; confirm vertex position w/ bedside US - 39 wk -- SVE, optional membrane sweeping, consider IOL planning Gave return precaution s and when to call L&D triage - f/u with PCP as scheduled in 2 weeks for LETICIA care Sciatica [id number] M54.30 Acute, unresolved , stableNo red flag symptoms- Discussed continuing exercises and stretches - PT informatio n printed- Patient requesting refill for flexeril; PAT discussed [id number] MD Yelitza Mathias 47 [address] [facility] [address] [place] [address] 07/16/2020 16:52:29 07/17/2020 09:39:01 Routine care [id number] Z34.91 yo G{{1 2 3 4 * 5 6 7 8 9}}P{{1 2* 3 4 5 6 7 8 9}} female JOSE: {{Sep M jan y Mar D ec}}{{1 2 3 4 5 6 7 8 9 10 11 12 13 14* 15 16 17 1 8 19 20 21 22 23 24 25 26 27 2 8 30 31}}{ {2020# 201 7 2018 201 9}} based on {{1st trimester US 2nd trimester US 3rd trimester US LMP*}} PMH: Anxiety complicate d by: First trimester bleeding requiring Rhogam, gestationa l thrombocyt openia (resolved) , anemia and history of pre-eclamp samaria and GDM -Continue ASA, 162mg per MFM-Pt self discontinu ed zoloft, reports symptoms controlled -EFW 86th %ile per most recent growth scan-Rhoga m administer ed in L&D at 28 weeks-rece ived flu shot and TDAP Pt sent to L&D for further management of headache and elevated blood pressure (see plan for headache) Headache [id number] R51.9 Reviewed records from L&D. Patient had two elevated blood pressures which were not greater than 4 hours apart. BP today is 140/84. Pt does not yet meet criteria for gestationa l hypertensi on or PreE but given headache and history can not definitive ly determine if patient's headache is a severe feature. Pt has history of headaches and multiple other pain complaints making it difficult to differenti ate severity of headache. Recommend patient go to L&D for further BP monitoring . Escorted patient to L&D [id number] Leonarda Mohr MD [place] [address] [address] 07/24/2020 10:36:20 07/29/2020 14:14:18 Routine care [id number] Z34.89 yo G{{1 2 3 4 * 5 6 7 8 9}}P{{1 2* 3 4 5 6 7 8 9}} female JOSE: {{Sep M jan y Mar D ec}}{{1 2 3 4 5 6 7 8 9 10 11 12 13 14* 15 16 17 1 8 19 20 21 22 23 24 25 26 27 2 8 30 31}}{ {2020# 201 7 2018 201 9}} based on {{1st trimester US 2nd trimester US 3rd trimester US LMP*}} PMH: Anxiety complicate d by: Gestationa l hypertensi on, gestationa l thrombocyt openia (resolved) , anemia and history of pre-eclamp samaria and GDM -Continue ASA 162mg-EFW 86th %ile per most recent growth scan, 6lbs 13oz-Rhoga m administer ed in L&D at 28 weeks-rece ived flu shot and TDAP-Induc tion scheduled for 08/01 for gestationa l HTN-contin ue Iron daily - induced hypertension [id number] O13.9 Recently diagnosed with gestationa l hypertensi on. Most recent PreE labs on 07/22 were negative although Pr/Cr ratio continues to rise. Most recent ratio 0.28. Pt will continue weekly preE labs as well as NST on 07/26 and 07/29. Reviewed signs/symp toms of PreE. Strict precaution s provided to patient Tachycardia [id number] R00. 0 Chronic, stablePt continues to be tachycardi c between 115-120. Most likely associated with and anemia. Encouraged compliance with iron as patient has not been taking it. Encouraged hydration [id number] MD Yelitza Sanches 3 [facility] [address] [place] [address] 08/05/2020 13:47:40 08/06/2020 07:59:25 -induced hypertension [id number] O13.9 Now resolved. Recently diagnosed with gestationa l hypertensi on in past months. Induced at 37 weeks on 08/01 and is now . Most recent PreE labs on L&D admission were negative and Pr/Cr ratio trended down since diagnosis. Most recent ratio 0.12. No red flag symptoms. Hypertensi on resolved and continues to be normal today.- F/U visit in 2 weeks as planned [id number] MD Yelitza Mathias 47 3 [facility] [address] [place] [address] 08/28/2020 11:10:43 09/02/2020 09:11:34 Essential hypertension [id number] I10 New diagnosisP t with history of gestationa l hypertensi on during multiple pregnancie s. BP today remains elevated. No concern for PreE at this time. ER precuation s provided to patient-Wi ll start Amlodipine 5mgRTC in 1 month for blood pressure check state [id number] 1 Z39.2 [place] negative [id number] Gilberto Rosado MD [facility] [address] [address] 09/12/2020 16:24:22 09/16/2020 10:29:21 state 09832952 Z39.2 {{4 6*}} weeks , delivered by {{ * LTCS}} - continue to assess for mood/depre ssion at each visit. [place] negative today - bonding well with baby - control {{IUD Nexplanon OCP mini-pill condoms none*}}. Pt currently declines control as she is in a same sex relationsh ip - Advised if she is experienci ng exhaustion , appetite or sleep disturbanc es, mood swings, anxiety, or feeling overwhelme d, call the office for support and resources. Essential hypertension [id number] I10 Pt with history of gestationa l hypertensi on during multiple pregnancie s. Recently started on Amlodipine 5mg. BP today within normal limits-Con tinue Amlodipine RTC in 3 months [id number] Conrad Villegas MD [facility] [address] [address] 11/08/2020 16:49:49 11/11/2020 12:06:14 Contraception care management [id number] Z30.9 Discussed contracept ion options with patient including risks/bene fits of each. Pt opting for IUD. Plan for Mirena once approved by insurance [id number] Evelin Gonzalez [facility] [address] [address] 12/19/2020 11:20:32 12/23/2020 13:24:17 Contraception care management [id number] Z30.9 After risks/bene fits of IUD placement were reviewed IUD was inserted without complicati ons -Recommend Ibuprofen 600mg q6h Essential hypertension [id number] I10 Chronic, uncontroll ed Pt previously discontinu ed medication due to blood pressure being in normal range. History of Pre-E in multiple pregnancie s. Pt likely has underlying chronic HTN -Restart Amlodipine 5mg RTC in 3 months [id number] Nikole Walsh [place] [address] [address] 04/01/2021 17:03:21 04/07/2021 12:55:25 Active or passive immunization [id number] Z23 Essential hypertension 85878583 I10 Chronic, controlled BP at goal today off of medication . Pt has history of Pre-E in multiple pregnancie s, most recently 8 months ago. This may attribute to previously elevated blood pressures post . Will continue to monitor off medication RTC in 6 months [id number] JAMEEL GODINEZ MD [address] [address] 04/30/2021 08:30:24 05/05/2021 09:12:59 Suspected COVID-19 [id number] Z03.89 - If symptoms worsen discussed going to the ER for further evaluation (shortness of breath, chest discomfort , confusion) - Advised obtaining a COVID test - D/w pt the current pandemic of COVID-19 and call for social isolation in order to blunt the curve and minimize risk and spread. Encouraged patient and family to take restrictio ns seriously. They have verbalized understand ing of such. 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 Avoid leaving the house unless needs to be evaluated in ER, avoiding public places, public transporta tion. [id number] Iglesia sharma MD [address] [address] 06/10/2021 13:28:21 06/12/2021 09:50:38 Muscle pain 78411552 M79.10 Acute, unresolved 2/2 COVID infection. Explained that body aches are normal and to be expected in the setting of COVID. Calf pain at this time is symmetric without erythema. While COVID can potentiall y be related to DVT suspicion is low at this time-Take Tylenol 1000mg alternatin g with Ibuprofen 600mg-Main tain hydration- Strict ER percaution s provided to patient regarding worsening of calf pain or if swelling or erythema develops COVID-19 [id number] U07.1 [id number] MD Yelitza DUFF [address] [address] 09/02/2021 09:24:36 09/03/2021 10:27:03 Upper respiratory infection 89594955 J06.9 Acute, stable- Continue support care w/ OTC cough suppresant s and gentle hydration as tolerated. - Recommend getting covid tested and isolate per CDC protocol- Discussed management plan including risk/benef its and return precaution s. Pt voiced understand ing. All questions answered [id number] MD [place] camp[place]inder [address] [address] 11/04/2021 09:23:04 11/05/2021 07:53:31 Contraception care management [id number] Z30.9 Pt requesting IUD removal due to adverse effects. Plan for removal 11/06. Discussed alternativ e options to control bleeding in the future such as OCP. Will discuss more at upcoming visit [id number] MD OF [place] [address] [address] 11/06/2021 12:07:33 11/06/2021 17:00:28 Contraception care management 063591076 Z30.9 IUD removed intact without complicati ons. Declines additional forms of control today [id number] JAMEEL GODINEZ MD [place] [address] [address] 11/27/2021 12:09:45 12/01/2021 12:58:22 Anxiety 56801877 F41.9 Chronic, uncontroll edGAD-7: 16-Will restart Venlafaxin e 75mg daily as this provided patient benefit in the past-Resta rt Hydroxyzin e TID PRN-Recomm end counseling . Pt not interested at this timeRT in 1 month [id number] MD Yelitza Pimentel 3 [facility] [address] [place] [address] 04/08/2022 10:05:32 04/09/2022 09:01:39 Dysuria 05605054 R30.9 Acute, unresolved .Prescribe d macrobid yesterday through exchange for acute dysuria. Likely UTI with possible yeast infection. -Continue Macrobid course through end of treatment- UA + UCx ordered.-N uswab ordered.-W ill call patient with results. [id number] Kalie Sevilla-MD Yelitza Lema 3 [facility] [address] [place] [address] 05/22/2022 14:54:26 05/26/2022 08:46:25 Contraception care 947912414 Z30.40 Currently on no contracept ion. Previously has used: IUD (Didn't like, friend had complicati on, scared and had out early), nexplanon (Increased anxiety), and depo shot (Increased weight). Currently has 3 kids, does not plan to be any time soon.- D/w pt different contracept ion options: OCP's vs depo shot vs nexplanon vs IUD- D/w pt the different risks and benefits of each option- Pt opted to get the nexplanon placed, discussed risk of break through bleeding- Offered to get the procedure completed today; however, pt had to go home 2/2 to child being sick- Pt to schedule an appointmen t with our procedures clinic for placement of nexplanon Screening for malignant neoplasm of cervix [id number] Z12.4 Per chart review, last pap smear in 2019 and was normal. Next pap smear in 12/2022. [id number] Shawn Cruz MD [facility] - Edith Leija [address] [place] [address] 11/29/2023 14:26:57 11/29/2023 15:45:33 Anxiety 35749085 F41.9 Screening for cardiovascular system disease [id number] Z13.6 Health Concerns Section Related Observation LastModified by Organization Detai ls LastModified Time None Recorded Concern Status LastModified by Organization Details LastModified Time None Recorded Advance Directives Directive None Recorded Payers Encounter Date Sequence Insurance Name Policy Number Policy Abreu Covered Member ID Abreu Member ID Guarantor Name 11/06/2021 1 [employer] ON OR AFTER 02/06/21 (MEDICAID REPLACEMENT - HMO) Genesis Diallo [id number] Genesis Sargent 11/27/2021 1 [employer] [facility] OR AFTER 02/06/21 (MEDICAID REPLACEMENT - HMO) Genesis Espinalfield [id number] Genesis Sargent 04/08/2022 1 [employer] OR AFTER 02/06/21 (MEDICAID REPLACEMENT - HMO) Genesis Diallo [id number] Genesis Sargent 05/22/2022 1 [employer] OR AFTER 02/06/21 (MEDICAID REPLACEMENT - HMO) Genesis Diallo [id number] Genesis Sargent 11/29/2023 1 [employer] OR AFTER 02/06/21 (MEDICAID REPLACEMENT - HMO) Genesis Espinalfield [id number] Genesis Sargent Notes Date Note Type Note Provider Name and Address Organization Details Recorded Time 11/06/2021 text/html Pt presents to clinic for removal of IUD. Pt reports severe back pain when she is on her menses that started since having IUD. Gets menses monthly. No other concerns. In a monogamous relationship with her . Not seeking any additional contraception at this time Gilberto Rosado MD Attn: Accounting, [address] [place], [address], [facility] 11/07/2021 08:54:21 11/27/2021 text/html Pt presents to clinic to discuss restarting anxiety meds. Pt was previously on Hydroxyzine as needed and has been on multiple SSRI's/SNRI's which she self discontinued. Pt reports racing thoughts, irritability and difficulty sleeping. Requesting to restart Venlafaxine as she feels this medication helped the most in the past Denies fever, chills, shortness of breath, abdominal pain, vomiting, diarrhea JAMEEL GODINEZ MD Attn: Accounting,[address], [place], [address], [facility] 12/07/2021 19:45:05 04/08/2022 text/html Patient presents for vaginal discharge and dysuria for the past 3 days. Discharge is whitish in color. Also having itchiness. No odor. No hematuria. Some suprapubic pain. Denies fevers, chills, cp, sob, n/v/d. Isrrael Gaines MD Attn: Accounting[address] [facility], [place], [address], [facility] 04/15/2022 09:07:26 05/22/2022 text/html 27 yo; PMHx of anxiety / depression; presenting for contraceptive care. Previously thought she was due for another pap smear. Per chart review, last pap smear in 2019 and was normal. Next pap smear in 12/2022. Currently on no contraception. Previously has used: IUD (Didn't like, friend had complication, scared and had out early), nexplanon (Increased anxiety), and depo shot (Increased weight). Currently has 3 kids, does not plan to be any time soon. 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 Shawn Cruz MD Attn: Accounting[address] [facility], [place], [address], [facility] 11/29/2023 23:09:00 OBGyn Episode Ob Episode Information Episode Created Date Number of Fetuses Patient Bloodtype Patient rh Status Prepregnancy Weight lbs Domestic Partner Domestic Partner Phone Father Name Veneer Gluer Status 12/27/19 20 1 A Negative CLOSED Fetus Data First Name Last Name Admitted to NICU Weight (g) Sex Living Outcome Pediatric Complications Fetus ID Race Codes Race Delivery Type [id number] Problems Problem Notes Problem Name Start Date End Date Resolution Snomed Code Not e Plantar fasciitis 06/26/[id number] Jose Calculation Initial Jose Date Initial Exam Date Initial Exam Provider Initial Ultrasound Date Last Menstrual Period Date Ultra Sound Weeks Gestation 08/22/2020 12/27/2019 [email or web address] 11/16/2019 0 Eighteen To Twenty Week Jose Update Ultra Sound Date Fundal Height At Umbil Quickening Date Ultra Sound Latest Weeks Gestation Final Jose Confirmed By Final Jose Confirmed Date Final Jose Date Ultra Sound Latest Days Gestation 0 08/22/19 21 0 Pre-uday Flowsheet Flowsheet Date 12/25/2019 Smith Score Blood Edema Fundus Height Fundus Units Glucose Ketones Leukocytes Nitrite Labor Signs Protein Cervic Dilation Cervic Effacement Cervic Station Type Weight in lbs Pre/Post Dialysis Refused Weight 148.891660675472 BP Diastolic BP Location Tested BP Systolic BP Type 80 150 sitting Fetus Heart Rate Present Fetus Movement Comments Flowsheet Date 01/02/2020 Smith Score Blood Edema Fundus Height Fundus Units Glucose Ketones Leukocytes Nitrite Labor Signs Protein Cervic Dilation Cervic Effacement Cervic Station Type Weight in lbs Pre/Post Dialysis Refused Weight 146.351304485189 BP Diastolic BP Location Tested BP Systolic BP Type 68 130 sitting Fetus Heart Rate Present Fetus Movement Comments Flowsheet Date 01/23/2020 Smith Score Blood Edema Fundus Height Fundus Units Glucose Ketones Leukocytes Nitrite Labor Signs Protein Cervic Dilation Cervic Effacement Cervic Station Type Weight in lbs Pre/Post Dialysis Refused Weight 145.7816042006 BP Diastolic BP Location Tested BP Systolic BP Type 74 124 sitting Fetus Heart Rate Present Fetus Movement Comments Flowsheet Date 02/01/2020 Smith Score Blood Edema Fundus Height Fundus Units Glucose Ketones Leukocytes Nitrite Labor Signs Protein Cervic Dilation Cervic Effacement Cervic Station Type Weight in lbs Pre/Post Dialysis Refused Weight 141.169671732454 BP Diastolic BP Location Tested BP Systolic BP Type 76 114 sitting Fetus Heart Rate Present Fetus Movement Comments Flowsheet Date 02/27/2020 Smith Score Blood Edema Fundus Height Fundus Units Glucose Ketones Leukocytes Nitrite Labor Signs Protein Cervic Dilation Cervic Effacement Cervic Station Type Weight in lbs Pre/Post Dialysis Refused Weight 145.133567880461 BP Diastolic BP Location Tested BP Systolic BP Type 72 112 sitting Fetus Heart Rate Present Fetus Movement Comments Flowsheet Date 03/27/2020 Smith Score Blood Edema Fundus Height Fundus Units Glucose Ketones Leukocytes Nitrite Labor Signs Protein Cervic Dilation Cervic Effacement Cervic Station Type Weight in lbs Pre/Post Dialysis Refused Weight 149.765601088696 BP Diastolic BP Location Tested BP Systolic BP Type 82 120 sitting Fetus Heart Rate Present Fetus Movement Comments Flowsheet Date 04/25/2020 Smith Score Blood Edema Fundus Height Fundus Units Glucose Ketones Leukocytes Nitrite Labor Signs Protein Cervic Dilation Cervic Effacement Cervic Station Type Weight in lbs Pre/Post Dialysis Refused Weight 156.882668128902 BP Diastolic BP Location Tested BP Systolic BP Type 70 122 sitting Fetus Heart Rate Present Fetus Movement Comments Flowsheet Date 04/29/2020 Smith Score Blood Edema Fundus Height Fundus Units Glucose Ketones Leukocytes Nitrite Labor Signs Protein Cervic Dilation Cervic Effacement Cervic Station Type Weight in lbs Pre/Post Dialysis Refused Weight 157.603342481717 BP Diastolic BP Location Tested BP Systolic BP Type 70 124 sitting Fetus Heart Rate Present Fetus Movement Comments Flowsheet Date 04/30/2020 Smith Score Blood Edema Fundus Height Fundus Units Glucose Ketones Leukocytes Nitrite Labor Signs Protein Cervic Dilation Cervic Effacement Cervic Station Type Weight in lbs Pre/Post Dialysis Refused Weight 159.662122186978 BP Diastolic BP Location Tested BP Systolic BP Type 74 120 sitting Fetus Heart Rate Present Fetus Movement Comments Flowsheet Date 05/02/2020 Smith Score Blood Edema Fundus Height Fundus Units Glucose Ketones Leukocytes Nitrite Labor Signs Protein Cervic Dilation Cervic Effacement Cervic Station Type Weight in lbs Pre/Post Dialysis Refused Weight 159.587845008530 BP Diastolic BP Location Tested BP Systolic BP Type 70 110 Fetus Heart Rate Present Fetus Movement Comments Flowsheet Date 05/23/2020 Smith Score Blood Edema Fundus Height Fundus Units Glucose Ketones Leukocytes Nitrite Labor Signs Protein Cervic Dilation Cervic Effacement Cervic Station Type Weight in lbs Pre/Post Dialysis Refused Weight 165.451284714115 BP Diastolic BP Location Tested BP Systolic BP Type Fetus Heart Rate Present Fetus Movement Comments Flowsheet Date 06/03/2020 Smith Score Blood Edema Fundus Height Fundus Units Glucose Ketones Leukocytes Nitrite Labor Signs Protein Cervic Dilation Cervic Effacement Cervic Station Type Weight in lbs Pre/Post Dialysis Refused Weight 172.524895291070 BP Diastolic BP Location Tested BP Systolic BP Type 64 120 sitting Fetus Heart Rate Present Fetus Movement Comments Flowsheet Date 06/12/2020 Smith Score Blood Edema Fundus Height Fundus Units Glucose Ketones Leukocytes Nitrite Labor Signs Protein Cervic Dilation Cervic Effacement Cervic Station Type Weight in lbs Pre/Post Dialysis Refused Weight 174.381553847919 BP Diastolic BP Location Tested BP Systolic BP Type 68 122 sitting Fetus Heart Rate Present Fetus Movement Comments Flowsheet Date 06/21/2020 Smith Score Blood Edema Fundus Height Fundus Units Glucose Ketones Leukocytes Nitrite Labor Signs Protein Cervic Dilation Cervic Effacement Cervic Station Type Weight in lbs Pre/Post Dialysis Refused Weight 177.405091999255 BP Diastolic BP Location Tested BP Systolic BP Type 64 126 sitting Fetus Heart Rate Present Fetus Movement Comments Flowsheet Date 06/26/2020 Smith Score Blood Edema Fundus Height Fundus Units Glucose Ketones Leukocytes Nitrite Labor Signs Protein Cervic Dilation Cervic Effacement Cervic Station 33 cm Type Weight in lbs Pre/Post Dialysis Refused Weight 178.245128545096 BP Diastolic BP Location Tested BP Systolic BP Type 68 130 sitting Fetus Heart Rate Present A 152 Present Fetus Movement A Yes Comments Flowsheet Date 07/08/2020 Smith Score Blood Edema Fundus Height Fundus Units Glucose Ketones Leukocytes Nitrite Labor Signs Protein Cervic Dilation Cervic Effacement Cervic Station Type Weight in lbs Pre/Post Dialysis Refused Weight 182.823909455174 BP Diastolic BP Location Tested BP Systolic BP Type 70 124 sitting Fetus Heart Rate Present Fetus Movement Comments Flowsheet Date 07/16/2020 Smith Score Blood Edema Fundus Height Fundus Units Glucose Ketones Leukocytes Nitrite Labor Signs Protein Cervic Dilation Cervic Effacement Cervic Station Type Weight in lbs Pre/Post Dialysis Refused Weight 186.604758180419 BP Diastolic BP Location Tested BP Systolic BP Type 84 140 sitting Fetus Heart Rate Present Fetus Movement Comments Flowsheet Date 07/24/2020 Smith Score Blood Edema Fundus Height Fundus Units Glucose Ketones Leukocytes Nitrite Labor Signs Protein Cervic Dilation Cervic Effacement Cervic Station Type Weight in lbs Pre/Post Dialysis Refused Weight 186.62456977461 BP Diastolic BP Location Tested BP Systolic BP Type 72 134 sitting Fetus Heart Rate Present Fetus Movement Comments Flowsheet Date 08/05/2020 Smith Score Blood Edema Fundus Height Fundus Units Glucose Ketones Leukocytes Nitrite Labor Signs Protein Cervic Dilation Cervic Effacement Cervic Station Type Weight in lbs Pre/Post Dialysis Refused BP Diastolic BP Location Tested BP Systolic BP Type 74 132 sitting 78 130 sitting Fetus Heart Rate Present Fetus Movement Comments Flowsheet Date 08/28/2020 Smith Score Blood Edema Fundus Height Fundus Units Glucose Ketones Leukocytes Nitrite Labor Signs Protein Cervic Dilation Cervic Effacement Cervic Station Type Weight in lbs Pre/Post Dialysis Refused Weight 172.241958241988 BP Diastolic BP Location Tested BP Systolic BP Type 90 142 sitting 92 142 sitting Fetus Heart Rate Present Fetus Movement Comments Flowsheet Date 09/12/2020 Smith Score Blood Edema Fundus Height Fundus Units Glucose Ketones Leukocytes Nitrite Labor Signs Protein Cervic Dilation Cervic Effacement Cervic Station Type Weight in lbs Pre/Post Dialysis Refused Weight 169.166691886741 BP Diastolic BP Location Tested BP Systolic BP Type 86 130 sitting Fetus Heart Rate Present Fetus Movement Comments Menstrual History Last Menstrual Date Menses Monthly On Bcp Conception Prior Menses Frequency Hcg Plus Date Menarche Onset Age 0411/16/2019 true false 30 Delivery Information Delivery Date Delivery Type Labor Anesthesia Weeks Gestation Incision Type Labor Labor Length Hrs Delivered By Post Complications Tubal Sterilization Discharge Date Comments 0 37 afehrenbac her Discharge Information Feeding Method Contraceptive Method Maternal HG B and HCT Levels
[2024-11-08 12:42] LABS: Creatinine Urine 138.1 mg/dL
[2024-11-08 12:43] LABS: Total Protein Urine Random < 5 mg/dL
[2024-11-08 13:54] LABS: HIV 1/2 Ab P24 Ag Result Negative (Negative)
[2024-11-10 03:23] LABS: CMV IgG Antibody <0.60 U/mL; Varicella IgG Antibody 7.22 S/CO
[2024-11-10 16:13] LABS: RPR Screen NON-REACTIVE (NON-REACTIVE)
== END 2024-11-08 10:57 | disposition home or self-care (01) ==
PROVIDERS: Visit Provider Student in an Organized Health Care Education/Training Program
DX: N91.2 Amenorrhea, unspecified (principal); Z86.32 Personal history of gestational diabetes; Z87.59 Personal history of other complications of pregnancy, childbirth and the puerperium
CPT/HCPCS: 36415; 80053; 81050; 81220; 82570; 84156; 84550; 84702; 85027; 85055; 86592; 86644; 86703; 86747; 86762; 86787; 86850; 86900; 86901; 87086; 87340; G0432

== ENCOUNTER 2024-12-07 12:19 | Observation (INO) | payer OTHER, SELFPAY ==
[2024-12-07] VITALS (7 sets, daily range): BP systolic 124–150; BP diastolic 77–88; PULSE 99–120; RESP 20; TEMP 36.6; O2SAT 98–100
--- NOTE | 2024-12-07 12:55 | PC.NURSE ---
Dopplered FHT- 135 w/ moderate variability
--- NOTE | 2024-12-07 13:15 | PC.NURSE ---
Called Dr. Portillo to inform of pt reason for visit- dark red bleeding at 21 weeks that has been on and off since yesterday with no other cramping or other symptoms. Informed of elevated BP. reviewed pt's chart and previous ultrasounds. States pt may go home and visit his office next week. RN repeated back orders to confirm.
--- NOTE | 2024-12-07 13:43 | PC.NURSE ---
Called Dr. Portillo again d/t patient questioning needing rhogam for her A negative blood type. Dr. Portillo verbalized understanding, does not believe that pt needs rhogam at this time as pt is not bleeding enough to fill a pad and that the blood is brown in color. states pt may go home at this time. RN repeated order back to confirm.
--- NOTE | 2024-12-07 13:51 | PM.OBTRLD ---
OB - Triage/Final Diagnosis Visit Information Date of evaluation: 12/07/24 Reason for evaluation: other (bleeding) Comments/Additional reasons for admission: I have assessed the risk for this patient, Genesis Sargent, and determined that she would benefit from observation care. Evaluation Vital signs: Vital Signs - 24 hr 12/07/24 12:51 12/07/24 12:56 12/07/24 12:58 Temperature Pulse Rate 114 H Respiratory Rate Blood Pressure 150/88 H Pulse Oximetry 100 98 12/07/24 12:59 12/07/24 13:08 12/07/24 13:18 Temperature 97.9 F Pulse Rate 108 H 104 H 99 Respiratory Rate 20 Blood Pressure 148/79 H 150/88 H 139/84 Pulse Oximetry 100 12/07/24 13:30 Temperature Pulse Rate 100 Respiratory Rate Blood Pressure 124/77 Pulse Oximetry
== END 2024-12-07 13:50 | disposition home or self-care (01) ==
LOC: ANHOBPP 12:23
PROVIDERS: Admitting Provider Student in an Organized Health Care Education/Training Program; Visit Provider Student in an Organized Health Care Education/Training Program
DX: O46.92 Antepartum hemorrhage, unspecified, second trimester (principal); Z3A.21 21 weeks gestation of pregnancy
CPT/HCPCS: G0378; G0379

== ENCOUNTER 2024-12-27 19:25 | Observation (INO) | payer OTHER, SELFPAY ==
[2024-12-27] VITALS (14 sets, daily range): BP systolic 130–141; BP diastolic 78–91; PULSE 98–113; TEMP 37.4; O2SAT 98–100; BMI 33.2
--- NOTE | 2024-12-27 19:25 | PC.NURSE ---
Pt arrives to unit from work with cramping and vaginal bleeding, accompanied by friend.
--- OUTSIDE RECORDS SUMMARY | 2024-12-27 19:30 | XMS_ITS | Clinical Summary ---
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 This disclosure is being madepursuant to the Care Everywhere program and may not contain all information available regarding this patient. Last updated 18.[employer] [facility] Allergies No known active allergies Medications * Be aware that medications may not be up to date on this document. Alwaysverify current medications with the patient. Vit-Fe Fumarate-FA ( VITAMIN) 28-0.8 MG tablet Take 1 Tab by mouth once daily Active insulin NPH (HUMULIN N) vial Take 24 units in the morning and 10 units at bedtime. 20 mL 1 07/08/20 16 Active Additional Information Patient not taking.Reported on 11/29/2024 Insulin Syringe-Needle U-100 (BD ULTRAFINE 31 G X 6 MM 0.5 ML) 31G X 15/64 0.5 ML syringe Use one syringe for each injection. 4 injections per day. 100 Syringe 1 07/08/20 16 Active Additional Information Patient not taking.Reported on 11/29/2024 pyridoxine (VITAMIN B-6) 25 MG tablet Take 25 mg by mouth nightly as needed Active sertraline (ZOLOFT) 25 MG tabletIndicati ons:Generalize d Anxiety Disorder Take 25 mg by mouth once daily 04/02 pt states she does not take it everyday because it makes her sick Reasons: Generalized Anxiety Disorder Active ondansetron (ZOFRAN) 4 MG tablet Take 4 mg by mouth every 8 hours Active Vit-Fe Fumarate-FA ( VITAMINS PO) Take 1 tablet by mouth once daily Pt states she was taking the gummies, but they were making her sick. Active ferrous gluconate 324 (38 FE) MG tablet Take 324 mg by mouth 2 times daily with morning and evening meal Discontin ued(List Clean-Up) docusate sodium (COLACE) 100 MG capsule Take 100 mg by mouth once daily Discontin ued(List Clean-Up) acetaminophen (TYLENOL) 500 MG tablet Take 500 mg by mouth every 4 hours as needed for Pain or Headache Maximum allowable Acetaminophen amount = 4 Grams (4000 mg) / 24 hours. Discontin ued(List Clean-Up) Calcium-Vitami n D 500-125 MG-UNIT TABS Take 1 Tab by mouth once daily Discontin ued(List Clean-Up) insulin lispro (HUMALOG) 100 UNIT/ML vial Take 16 units before breakfast and 10 units before dinner. 10 mL 1 07/08/20 16 Discontin ued(List Clean-Up) aspirin (ASPIRIN) 81 MG chew tablet Take 81 mg by mouth once daily Discontin ued(List Clean-Up) hydrOXYzine hcl (ATARAX) 25 MG tablet Take 25 mg by mouth 2 times daily Discontin ued(List Clean-Up) Active Problems Problem Noted Date Diagnosed Date Gestational thrombocytopenia, second trimester 0 11/29/2024 Thrombocytopenia 11/21/2024 History of gestational diabe adrian in prior , currently 11/21/2024 Fifth 11/21/2024 History of delivery, currently 11/21/2024 Encounter for ultrasound 04/01/2020 Hx of preeclampsia, prior pr egnancy, currently , unspecified trimester 04/01/2020 Smoker 04/01/2020 Hx of gestational diabetes i n prior , currently , unspecified trimester 04/01/2020 Anxiety 04/01/2020 Rh negative, antepartum 04/01/2020 Overview (04/01/2020): Pt received Rhogam in 1st trimester for bleeding per record Gestational diabetes mellitus (GDM) in third tri mester 06/30/2016 Estimated Date of Delivery Comme nts Yes 04/15/2025 Based on last me nstrual period of 07/09/2024 Resolved Problems Problem Noted Date Diagnosed Date Resolved Date Fourth 04/01/2020 11/29/2024 Rh incompatibility 07/08/2016 Supervision of high risk pre gnancy in third trimester 06/30/2016 11/29/2024 Encounters Date Type Department Care Team Description 11/29/2024 9:51 AM CDT - 11/29/2024 11:59 PM CDT Hospital Encounter [facility] [address] [place] [address] Shawn Corbin MD Mead, Judith A, MD Discharge Disposition: Home or Self Care 11/29/2024 9:45 AM CDT - 11/29/2024 9:50 AM CDT Hospital Encounter [facility] [address] [place] [address] Shawn Corbin MD Mead, Judith A, MD Discharge Disposition: Home or Self Care from Last 3 Months Family History Medical History Relation Name Comments Diabetes Father Diabetes; unknown type Father Hypertension Father Diabetes; unknown type Maternal Grandmother Hypertension Maternal Grandmother Hypertension Mother Lupus Mother Diabetes Paternal Grandfather Hypertension Paternal Grandfather Cancer Paternal Grandmother breast Relation Name Status Comments Father Alive Maternal Grandfather Maternal Grandmother Alive Mother Alive Paternal Grandfather Alive Paternal Grandmother Alive Sister Alive half-sister Alive Social History Tobacco Use Types Packs/Day Years Used Date Smoking Tobacco: Former Cigarettes 2 013 - 04/02/2019 Smokeless Tobacco: Never Alcohol Use Standard Drinks/Week Comments Not Currently 0 (1 standard drink = 0.6 oz pur e alcohol) Estimated Date of Delivery Comme nts Yes 04/15/2025 Based on last me nstrual period of 07/09/2024 Sex and Gender Information Value Date Recorded Sex Assigned at Not on file 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 Gender Identity Not on file Sexual Orientation Not on file Last Filed Vital Signs Vital Sign Reading Time Taken Comments Blood Pressure 134/78 11/29/2024 11:10 AM CDT Pulse 97 11/29/2024 11:10 AM CDT Temperature 36.5 C (97.7 F) 05/27/2020 8:13 AM CDT Respiratory Rate 18 04/02/2020 11:16 AM CDT Oxygen Saturation 100% 04/02/2020 11:16 AM CDT Inhaled Oxygen Concentration - - Weight 78 kg (172 lb) 11/29/2024 11:10 AM CDT Height 157.5 cm (5' 2 ) 11/29/2024 11:10 AM CDT Body Mass Index 31.46 11/29/2024 11:10 AM CDT Plan of Treatment Upcoming Encounters Date Type Department Care Team (Late st Contact Info) Description 01/08/2025 8:15 AM CDT Appointment [facility] [address] [place] [address] Health Maintenance Due Date Last Done Comments PAP SMEAR 1996 HEPATITIS C SCREENING 03/09/2014 DTAP/TDAP/TD VACCINES (1 - Tdap) 2015 HEPATITIS B VACCINE (1 of 3 - 19+ 3-dose series) 2015 COVID-19 VACCINE (2 - 2023-2 5 season) 2024 09/27/2020 DEPRESSION SCREENING 08/09/2024 OB-ONE HOUR GLUCOSE 01/07/2025 OB-RHOGAM INJECTION 01/21/2025 INFLUENZA VACCINE (Season Ended) 2025 ZOSTER VACCINE (1 of 2) 2046 HIV SCREENING Completed 05/31/2020, 12/21/2019 HIB VACCINE Aged Out No longer eligi ble based on patient's age to complete this topic HPV VACCINE Aged Out No longer eligi ble based on patient's age to complete this topic MENINGOCOCCAL (Group B) VACCINE SHARED DECISION-MAKING Aged Out No longer eligible based on patient's age to complete this topic MENINGOCOCCAL GROUPS A/C/Y/W VACCINE Aged Out No longer eligible b ased on patient's age to complete this topic PNEUMOCOCCAL VACCINE Aged Out No long er eligible based on patient's age to complete this topic Respiratory Syncytial Virus (RSV) Vaccine Pt: or over 60 yrs (No Doses Required) Completed Procedures Procedure Name Priority Date/Time Associated Diagnosis Comments SONOGRAM - COMPLETE Routine 11/29/2024 1 0:32 AM CDT Encounter for ultrasound (HCC) [facility] ([facility]) History of delivery, currently ([facility]) History of gestational diabetes in prior , currently ([facility]) Anxiety Smoker Rh negative, antepartum ([facility]) Hx of preeclampsia, prior , currently , unspecified trimester ([facility]) 20 weeks gestation of ([facility]) from Last 3 Months Results * SONOGRAM - COMPLETE (11/29/2024 10:32 AM CDT) Linked Results Indication ======== Thrombocytopenia, likely gestational, Anxiety, Rh negative History of hypertension during Obesity BMI 31 History ====== OB History 5. Para 3 [id number] 1. live 08/08/2015. Gest. age 38 w + 0 d. Details: Vaginal delivery 2. live 07/24/2016. Gest. age 34 w + 0 d. Details: Vaginal delivery, IOL d/t HTN and GDM-A2 3. live 07/29/2020. Gest. age 40 w + 0 d. Details: Vaginal delivery, Preeclampsia 4. miscarriage. Details: 1st trimester, no D and C Maternal Assessment Physical Exam Height 157 cm, 5 ft 2 in. Weight 78 kg, 172 lb. Initial weight 73 kg, 160 lb. BMI 31.46 kg/m . Initial BMI 29.26 kg/m . Weight gain 5 kg, 12 lb Method ====== Transabdominal and transvaginal ultrasound examination. View: Suboptimal view: limited by position. Suboptimal view: limited by maternal body habitus ========= Ortega . Number of fetuses: 1 Dating ====== Date Details Gest. age CRISTIAN LMP 07/09/2024 20 w + 3 d 04/15/2025 U/S 11/29/2024 based upon AC, BPD, Femur, HC 20 w + 2 d 04/16/2025 Assigned dating based on the LMP, selected on 11/29/2024 20 w + 3 d 04/15/2025 General Evaluation Cardiac activity present. FHR 161 bpm. movements: visualized. Presentation: transverse Placenta: Placental site: anterior, no previa. Placental jqef-qf-nisjvpde os distance 23 mm Umbilical cord: Cord vessels: 3 vessel cord. Insertion site: normal insertion Amniotic fluid: Amount of AF: normal Biometry BPD 46.9 mm 20w 1d 39% Hadlock HC 177.0 mm 20w 1d 30% Hadlock Cerebellum tr 21.9 mm 84% [place] Nuchal fold 6.3 mm AC 152.3 mm 20w 3d 44% Hadlock Femur 33.0 mm 20w 2d 38% Hadlock HC / AC 1.16 20w 3d 50% Hadlock Weight Calculation: EFW 349 g 41% Hadlock EFW (lb,oz) 0 lb 12 oz EFW by Hadlock ([id number]) Head / Face / Neck Biometry: CM 6.0 mm 78% Nicolaides appropriate Growth Overview Exam date GA BPD (mm) HC (mm) AC (mm) FL (mm) HL (mm) EFW (g) 11/29/2024 20w 3d 46.9 39% 177 30% 152.3 44% 33 38% 349 41% Anatomy The following structures appear normal: Head / Neck Cranium. Lateral ventricles. Choroid plexus. Midline falx. Cavum septi pellucidi. Cerebellum. Cisterna magna. Thalami. Nuchal fold. Heart / Thorax LVOT view. 3-vessel view. 5-pisjfd-oqkhken view. Aortic arch view. Ductal arch view. Great vessels. Right lung. Left lung. Diaphragm. Abdomen Cord insertion. Stomach. Kidneys. Bladder. Bowel. Genitals. Spine Cervical spine. Thoracic spine. Lumbar spine. Sacral spine. Extremities / Skeleton Arms. The following structures could not be adequately visualized: Face Lips. Profile. Nose. Nasal bone. Orbits. Heart / Thorax 4-chamber view. RVOT view. Situs. Bicaval view. Extremities / Skeleton Hands. Legs. Feet. sex: male. Maternal Structures Cervix reassuring Approach - Transvaginal: Cervical length 4.00 cm Funneling absent Right Ovary Normal Left Ovary Normal Impression ========= Single live intrauterine at 20w 3d The size is appropriate. The amniotic fluid volume is normal. The transvaginal cervical length is reassuring. No major malformations were seen within the limitations of ultrasound. Follow-up ======== Follow up ultrasound in 4 weeks for growth and to complete anatomic survey. See separate [facility] visit note. Coding ====== Procedures 13035: US Preg Uterus Detailed 85055: US Preg Uterus Transvaginal [facility] PACS Anatomical Region Laterality Modality Other 11/29/2024 10:3 2 AM CDT us Abner Portillo MD [facility] ORDERABLES Edited Result - Final from Last 3 Months Insurance [facility]
--- OUTSIDE RECORDS SUMMARY | 2024-12-27 19:31 | XMS_ITS | Data Portability ---
Author Organization [facility] Address [address] [place] [address] Care Team Providers [employer] Name Role Phone RONAK GUY Primary Care [...] 4 months she was advised to see DRAFTING DETAILER yearly she says it has been a year or 2 since last Pap advised to stay up-to-date on immunizations Not available 11/29/2023 23:08:29 Plan of Treatment Reminders Order Date Submit Date Provider Last Modified By Organization Details Last Modified Time Details Appointments None recorded. Lab lipid panel, serum 2023 024 [email or web address] [facility], [address] [facility], [address], [place], [address], 4 15:22:51 CMP, serum or plasma 2023 024 [email or web address] [facility], [address] [facility], [address], [place], [address], 4 15:22:51 CBC w/ auto diff 2023 024 [email or web address] [facility], [address], [address], [place], [address], 4 15:22:51 TSH, ultra-sens itive, serum 2023 024 [facility], [address] [facility] [address], [address], [place], [address], 4 15:22:51 unlisted lab - T4, free 2023 024 [email or web address] [facility], [address] [facility] [address], [address], [place], [address], 4 15:22:51 T3, free, serum or plasma 2023 024 [email or web address] [facility], [address] [facility] [address], [address], [place], [address], 4 15:22:51 urinalysis , dipstick 2021 022 PAULO In-Office Order, Internal Use Only DO Not Attach Compendium DO Not Attach Compendium, Do Not Delete/merge, [id number] 11:45:56 vaginal pathogens panel, RUCHI+probe, vaginal fluid 2021 022 PAULO [facility], [address] [facility] [address], [address], [place], [address], 2 20:08:21 culture, urine 2021 022 PAULO [facility], [address], [address], [place], [address], 2 20:08:22 Referral None recorded. Procedures None recorded. Surgeries None recorded. Imaging None recorded. Medication Orders Zoloft 25 mg tablet 2023 [id number], [address], [place], [place], [id number], 4 15:23:23 hydroxyzin e HCl 25 mg tablet 2023 024 [facility] #51513, [address], [place], [place], [id number], 4 15:23:28 venlafaxin e ER 75 mg capsule,ex tended release 24 hr 2021 [facility]87116, [address], [place], [id number], 4 14:33:14 hydroxyzin e HCl 25 mg tablet 2021 [facility]22 [facility], [address], [place], [id number], 14:32:37 Patient TargetsNo targets recorded. Patient Instructions Encounter Date Encounter Id Patient Instructions Last Modified By Organization Details Last Modified Time 11/06/2021 [id number] I was present and available in the Family Medicine clinic to discuss this patient's care during the appointment. I agree with the resident's assessment and plan as documented. Gilberto Rosado [email or web address] Not available 11/07/2021 08:54:16 11/27/2021 [id number] I was present and available in the Family Medicine clinic to discuss this patient's care for the duration of the appointment. I agree with the resident's assessment and plan as documented with the following addendum: None. Dr. Jameel Godinez MD Attending Physician, [facility]. [email or web address] Not available 12/07/2021 19:45:01 04/08/2022 [id number] I was present and available in the Family Medicine clinic to discuss this patient's care during the appointment. I agree with the resident's assessment and plan as documented. KGR [email or web address] Not available 04/15/2022 09:07:18 05/22/2022 [id number] I was present and available in the [...] te - 1 score Not Available [facility] ([facility]) [address] [facility], [place], [address], 04/16/2022 20:08:21 04/08/20 22 04/10/2022 NUSWA B VAGIN ITIS PLUS (VG+) bvab 2 High - 2 score abnormal Not Available [facility] ([facility]) [address] [facility], [place], [address], 04/16/2022 20:08:21 04/08/20 22 04/10/2022 NUSWA B [...] Drug Admin istra tion. Not Available [facility] ([facility]) [address] [facility], [place], [address], 04/16/2022 20:08:21 04/08/20 22 04/10/2022 NUA B VAGIN ITIS PLUS (VG+) joe albicans, RUCHI Negati ve negati ve Not Available [facility] ([facility]) [address] [facility], [place], [address], 04/16/2022 20:08:21 04/08/20 22 04/10/2022 NUSWA B VAGIN ITIS PLUS (VG+) joe glabrata, RUCHI Negati ve negati ve Not Available [facility] ([facility]) [address] [facility], [place], [address], 04/16/2022 20:08:21 04/08/20 22 04/16/2022 NUA B VAGIN ITIS PLUS (VG+) trich vag by RUCHI TNP Test not perfo rmed. Insuf ficie nt speci men to perfo rm or compl ete sruthi sis. Not Available [facility] ([facility]) [address] [facility], [place], [address], 04/16/2022 20:08:21 04/08/20 22 04/16/2022 NUA B VAGIN ITIS PLUS (VG+) chlamydia trachomatis, RUCHI TNP Test not perfo rmed. Insuf ficie nt speci men to perfo rm or compl ete sruthi sis. Not Available [facility] ([facility]) [address] [facility], [place], [address], 04/16/2022 20:08:21 04/08/20 22 04/16/2022 NUA B VAGIN ITIS PLUS (VG+) neisseria gonorrhoeae, RUCHI TNP Test not perfo rmed. Insuf ficie nt speci men to perfo rm or compl ete sruthi sis. Not Available [facility] ([facility]) [address] [place], [address], 04/16/2022 20:08:21 04/08/20 22 04/09/2022 URINE CULTU RE, ROUTI NE urine culture, routine TNP Test not perfo rmed. No urine speci men was recei kristen for cultu re. Not Available [facility] ([facility]) [address] [place], [address], 04/16/2022 20:08:22 04/08/20 22 04/09/2022 SPECI MEN STATU S REPOR T specimen status report TNP Test not perfo rmed. No urine speci men was recei kristen for cultu re. TEST: [id number] Urine Cultu re, Routi ne Not Available [facility] ([facility]) [address] [place], [address], 04/16/2022 20:08:23 04/08/20 22 04/16/[address] PROBL EM request problem TNP Test not perfo rmed. Insuf ficie nt speci men to perfo rm or compl ete sruthi sis. TEST: [id number] 7 Trich vag by RUCHI Panel : 1 [id number] 7 Chlam ydia trach omati s, RUCHI Panel : 1 [id number] 4 Neiss eria gonor rhoea e, RUCHI Panel : [id number] 1 Not Available [facility] ([facility]) [address] [place], [address], 04/16/2022 20:08:23 04/08/20 22 04/08/2022 urina lysis , dipst ick Leukocytes Small Not Available In-Offi ce Order Internal Use Only DO Not Attach Compendium DO Not Attach Compendium, Do Not Delete/merge, [id number] 04/08/2022 10:34:48 04/08/20 22 04/08/2022 urina lysis , dipst ick Nitrite negati ve Not Available In-Office Order Internal Use Only DO Not Attach Compendium DO Not Attach Compendium, Do Not Delete/merge, [id number] 04/08/2022 10:34:48 04/08/20 22 04/08/2022 urina lysis [...] 04/08/2022 urina lysis , dipst ick Specific [place] 1.025 Not Available In-Off ice Order Internal [...] DO Not Attach Compendium, Do Not Delete/merge, [id number] 04/08/2022 10:34:48 04/08/20 22 04/08/2022 urina lysis , dipst ick Color Dark Yellow Not Available In-Office Order Internal Use Only DO Not Attach Compendium DO Not Attach Compendium, Do Not Delete/merge, [id number] 04/08/2022 10:34:48 Result Notes None recorded. Problems Name Problem SNOMED Code Status Onset Date Resolution Date Notes Provider Name and Address Organization Details Recorded Time Generali zed anxiety disorder 74392475 Active 2017 Sage [place], [place] - [place] 8 08:57:32 Tobacco user 494599395 Active 2018 2-3 cigarette s a day Kerrie palacio, [place] - [place] 9 15:21:37 Pregnanc y 85316036 Completed 201908/21/2020 ASHLEY [place], [place] - [place] 1 16:17:45 Vulval pain 563903048 Active 2019 Prev healthy 24 pt at [...] - SIF 0 13:39:07 Plantar fasciiti s 407461000 Active 2019 ASH[place], [place] - SIF 17:07:38 Plantar fasciiti s 879753144 Completed 2019 Natalia Tyson MA null, [facility] SI 17:07:38 COVID-19 762510048 Active 2020 Kerrie Joan null, [facility] SI 15:21:18 Anxiety 60338317 Active 2023 Shawn Cruz MD Attn: Froilan tipton,[address] [facility], [place], [address] [place] [address] 4 23:08:40 Problem Notes None recorded. Procedures Surgical History Date Name Laterality Status Provider Name and Address Organization Details Recorded Time 2 IUD Removal completed Kerrie Joan [facility] 11/06/2021 14:46:00 1 [facility] 11:06:57 9 Control Implant Removal completed [facility] 06/14/2019 15:26:13 Imaging Results None recorded. Procedure [...] Available Not Available Not Available Cyndi 08/28 () 1 mg-20 mcg tablet Take 1 tablet [...] Updated DateTime 2 157.48 cm 27.3 kg/m2 95534.2 6 g 82 /min 98.1 [degF] 97 % 97 % 132 mm[Hg] 84 mm[Hg] Jarod Lr CMA [facility] 2 12:34:22 Date Recorded Body height Body mass index (BMI) Body weight Heart rate Oxygen saturation Oxygen saturation in Arterial blood by Pulse oximetry Body temperature Systolic blood pressure Diastolic blood pressure Provider Name and Address Organization Details Last Updated DateTime 2 157.48 cm 28.4 kg/m2 59036.5 2 g 85 /min 95 % 95 % 98.5 [degF] 146 mm[Hg] 92 mm[Hg] Nikole Osman MA [facility] 2 16:18:31 Date Recorded Systolic blood pressure Diastolic blood pressure Provider Name and Address Organization Details Last Updated DateTime 11/27/2021 130 mm[Hg] 82 mm[Hg] Kerrie Franco [facility] 11/27/2021 16:26:23 Date Recorded Body height Body mass index (BMI) Body weight Body temperature Heart rate Oxygen saturation Oxygen saturation in Arterial blood by Pulse oximetry Systolic blood pressure Diastolic blood pressure Provider Name and Address Organization Details Last Updated DateTime 2 157.48 cm 27.4 kg/m2 54760.4 1 g 98.4 [degF] 93 /min 100 % 100 % 124 mm[Hg] 85 mm[Hg] Kathi Cook [place] - [place] 2 10:17:55 Date Recorded Body height Body mass index (BMI) Body weight Body temperature Heart rate Oxygen saturation Oxygen saturation in Arterial blood by Pulse oximetry Systolic blood pressure Diastolic blood pressure Provider Name and Address Organization Details Last Updated DateTime 2 157.48 cm 27.3 kg/m2 16994.2 6 g 98.3 [degF] 74 /min 99 % 99 % 130 mm[Hg] 80 mm[Hg] Juliet Dong CMA [place] 2 15:26:51 Date Recorded Body weight Body mass index (BMI) Body height Heart rate Body temperature Oxygen saturation Oxygen saturation in Arterial blood by Pulse oximetry Systolic blood pressure Diastolic blood pressure Provider Name and Address Organization Details Last Updated DateTime 4 80113.5 6 g 29.8 kg/m2 157.48 cm 92 /min 98.6 [degF] 98 % 98 % 132 mm[Hg] 86 mm[Hg] Reba Pak MA [place] - [place] 4 14:43:32 Social History Question Answer Notes LastModified by Organizat ion Details LastModified Time Tobacco Smoking Status Former Smoker quit in 2015 Reba Pak MA [place], [place] - [place] 11/29/2023 14:41:24 Are You Blind Or Do You Have [...] 1 PPW [email or web address] Information not available 06/14/2019 On What Date Was Tobacco Cessation Counseling Provided? 11/29/2023 Information not available 11/29/2023 How Many Years Have You Smoked Tobacco? 3 Information not available 11/29/2023 Sex: Unknown Functional Status Question Answer Note LastModified by Organizat ion Details LastModified Time Do you use any illicit or recreational drugs? No Information not available 04/30/2021 Do you or have you ever used any other forms of tobacco or nicotine? No Information not available 04/30/2021 What is your level of alcohol consumption? Occasional Information not available 11/29/2023 Are you able to care for yourself? Yes Information n ot available 11/29/2023 Mental Status Question Answer Note LastModified by Organization D etails LastModified Time Do you feel stressed (tense, restless, nervous, or anxious, or unable to sleep at night)? [id number] Information not available 11/29/2023 Family History Nothing Reported. Medical History Condition [...] SNOMED-CT Code Diagnosis ICD10 Code Diagnosis Note [id number] Mitzi Fallon MD [place] [address] [address] 12/07/2017 11:14:17 12/07/2017 13:38:20 Generalized anxiety disorder 02437618 F41.1 PARVEZ vs. Panic disorderGA D 7: [...] for emergency use only. F/u 6 weeks [id number] Cait Parrish MD [place] [address] [address] 12/15/2017 10:35:54 12/16/2017 13:05:20 Generalized anxiety disorder 30579259 F41.1 Mixed anxiety and depressive disorder +/- [...] visit- consider counseling /CBT- encouraged daily exercise [id number] Cait Par[facility] [address] [address] 05/04/2018 12:07:52 05/04/2018 13:54:54 Right upper quadrant pain 974868689 R10.11 Suspect right upper quadrant pain secondary to cholelithi asis will get CMP and ultrasound to evaluate. Abnormal u terine bleeding 5582837467 9100 N93.9 Patient has experience d frequent [...] the right choice. Generalize d anxiety disorder 23824272 F41.1 Patient reports her symptoms have been fairly well controlled on the sertraline however continues to experience a dizziness sensation with taking the 50 mg. Patient reports discontinu ed the 50 and has been taking 25 mg over the past month and this has alleviated the dizziness sensation. -Will decrease sertraline to 25 mg daily -Continue hydroxyzin e at 25 mg as needed [id number] Afsaneh Lebron MD [facility] [address] [address] 06/14/2019 11:45:29 06/15/2019 09:33:46 Menorrhagia 200539329 N92.0 Pt reports irregular menses since having Nexplanon placed in 09/2016. Reports menses occur for around 3 months at a time. Uses 3-4 pads/day.- Will check CBC and evaluate for anemia given prolonged bleeding-W ill remove Nexplanon today. Pt aware that bleeding may still persist despite removal Removal of subcutaneous contraceptive 972809482 Z30.46 Nexplanon in left UE. Pt desired [...] without complicati on Generalize d anxiety disorder 59506970 F41.1 Previously on Zoloft but self discontinu ed because she felt it made her too tired. Currently taking Hydroxyzin e HCl 25mg as needed for symptoms-W ill start Lexapro 5mg. Advised patient to take 5mg for 1 week and if tolerating well can increase to 10mg dailyRTC 4-6 weeks Seborrheic dermatitis of scalp 012420309 L21.0 Pt requesting shampoo for dandruff and dry scalp Tobacco user 119990842 Z 72.0 Currently smoking 3-4 cigarettes a dayEncoura ge smoking cessation. Pt precontemp lative at [facility] adarsh [id number] [place] [address] [address] 09/14/2019 11:30:32 09/19/2019 11:40:16 Generalized anxiety disorder 87652638 F41.1 Pt previously on Zoloft and Lexapro but self discontinu ed both medication s due to side effects. Pt would still like to proceed with trying medication to help with anxiety.-W ill start Effexor 75mg daily-Cont inue Hydroxyzin e as needed for severe anxietyRTC in 3 months Seborrheic dermatitis of scalp 898124674 L21.0 Improving with Ketoconazo le. Will refill medication [id number] Evelin Gould DO [place] [address] [address] 12/12/2019 12:16:23 12/15/2019 07:53:48 Generalized anxiety disorder 26646218 F41.1 Chronic, improvingP t reports significan t improvemen t with Effexor. Reports some withdrawal symptoms when not taking medication which is expected. Discussed importance of taking medication daily.-Con tinue Effexor 75mg. Will leave at current dose.-Repe at PARVEZ 7 at subsequent visitRTC in 3 months [id number] MD Yelitza Gonzáles [address] [address] 12/20/2019 11:46:38 12/21/2019 09:33:49 Vomiting of 06099539 O21.9 Pt to start pyrodoxine and doxylamine today.Eat small meals.Eat foods that seem appealing, do not force eat unappealin g foods.F/u in 2 weeks. [id number] Isrrael Gaines MD [place] [address] [address] 12/25/2019 16:28:43 12/28/2019 00:12:28 Low back pain 322220226 M54.5 Acute, unresolved Pain is associated with abdominal cramping and diarrhea. Low concern for pyelonephr itis or any renal etiology. U/A with small leuk esterase. Given risk of untreated UTI in will start Augmentin. If culture is negative patient can discontinu e medication Viral gastroenteritis 11 5234070 A08.4 Acute, unresolved -Discussed importance of remaining hydrated-S trict ED precaution s provided to patient, if unable to keep water down or maintain hydration then patient should proceed to the ER. Pt reports understand ing-Review ed medication s that are safe to take during - If diarrhea continues can consider c.diff testing given occupation [id number] Isrrael Gaines MD [facility] [address] [address] 01/02/2020 15:39:06 01/03/2020 21:32:44 Nausea 646279893 R11.0 Acute, improvingR ecommend continuing Unisom and B6 nightly as well as jordy candies and small frequent meals. Discussed safety of zofran with patient.-C ontinue zofran PRN-ER precaution s provided to patient Routine an tenatal care 274407559 Z34.91 TVUS performed in clinic. HR appropriat e but unable to establish measuremen t of yolk sac. Gestation sac measuring around 7w6d. Patient will return for official visit and dating ultrasound in 3 weeks. [id number] Haley Frazier DO [facility] [address] [address] 01/23/2020 14:53:53 01/26/2020 12:07:18 Routine care 743703829 Z34.91 yo G{{1 2 3 4 * 5 6 7 8 9}}P{{1 2* 3 4 5 6 7 8 9}} female CRISTIAN: {{Sep M ay Jan y Mar D [...] RTC in 4 weeks Subchorionic hematoma 60 1447111 O41.8X99 Acute, stable-Hem orrhage appears stable on imaging-Di scussed natural progressio n of subchorion ic hemorrhage . Strict ED precaution s provided to patient Bleeding f rom female genital tract during 6793850607 1266988 O46.91 Acute, resolvedPt received Rhogam in 1st trimester for bleeding. WIll need repeat between 26-28 weeks for Rh- status Elevated blood-pressure reading without diagnosis of hypertension 413719241 R03.0 Pt has history of elevated blood pressure readings prior to . Pt has white coat hypertensi on. Previously tearful during visits when getting blood pressure taken. Patient also has history of pre-eclamp samaria which may make it difficult to differenti ate between chronic hypertensi on and gestationa l hypertensi on. Recommend baseline CMP, A1C and 24 hour urinary protein [id number] Leonarda Mohr MD [facility] [address] [facility] [address] [place] [address] 02/01/2020 12:56:13 02/08/2020 13:12:31 Otalgia of left ear 0267527207 059197 H92.02 24 yo F presents with L otalgia x3 days with radiation to jaw with no other symptoms. On exam, L EAC ceruminous , irrigated. After irrigation , no abnormalit ies on exam. Pain likely due to ear wax.-F/u with PCP as needed [id number] Leonarda Mohr MD [facility] [address] [facility] [address] [place] [address] 02/27/2020 14:46:38 02/28/2020 07:27:25 Past history of pre-eclampsia 8681238112 67074 Z87.59 Patient has multiple elevated blood pressures recorded however on repeat measuremen ts BP usually WNL. Pt has never recieved diagnosis of chronic hypertensi on. Baseline Cr within normal limits. Will get 24 hour urine protein as baseline. High risk 4720 0007 O09.92 Routine an tenatal care 884097748 Z34.91 yo G{{1 2 3 4 * 5 6 7 8 9}}P{{1 2* 3 4 5 6 7 8 9}} female CRISTIAN: {{Sep M ay Jan y Mar D [...] Zoloft-Zof ran PRN nausea-Jorje l send to [facility] given history of Pre-E and GDM RTC in 4 weeks [id number] DO OF [facility] [address] [facility] [address] [place] [address] 03/27/2020 11:44:38 03/28/2020 17:18:11 Pain in pelvis 97007432 R10.2 Acute, intermitte ntDDx: UTI vs yeast infection vs round ligament painVagina l discharge on exam however may be physiologi c. U/A not indicative of infection. Reassuring that pain improves after sitting in warm bath. Most likely round ligament pain-Will get urine culture to be complete-N uswab pending-ER percaution s provided Routine an tenatal care 259002166 Z34.91 yo G{{1 2 3 4 * 5 6 7 8 9}}P{{1 2* 3 4 5 6 7 8 9}} female CRISTIAN: {{Sep M ay Jan y Mar D [...] Zoloft-Has upcoming appointmen t on 04/03 with [facility] and for anatomy scan Routine care as below - 20 wk anatomy ultrasound - 26-28 wk Rhogam shot - 28 wk CBC, GTT, Tdap, repeat dep screen - 32 wk repeat STI screening (if high risk) - 35-37 wk GBS neg/pos; confirm vertex position w/ bedside US - 39 wk -- SVE, optional membrane sweeping, consider IOL planning RTC in 4 weeks [id number] Cait Parrish MD [facility] [address] [facility] [address] [place] [address] 04/25/2020 15:29:56 04/26/2020 09:23:58 Routine care 451831526 Z34.91 yo G{{1 2 3 4 * 5 6 7 8 9}}P{{1 2* 3 4 5 6 7 8 9}} female CRISTIAN: {{Sep M jan y Mar D ec}}{{1 [...] for follow up on April 30 with [facility] with 4 week growth scan - Continue [...] primary physician, sooner if needed Abdominal pain 96125928 R10.9 Acute, stableAbom inal exam benign, recent L&D encounter reviewedSu spect symptoms could be secondry to constipati on vs round ligament pain. No red flag symptoms.- Start bowel regimen: scheduled colace, miralax, and OTC fiber- Strict L&D precaution s given- Abdominal binder for uterine support- RTC in 1 [address] scheduled [address] Dr[address] Franco [id number] Leonarda Mohr MD [facility] [address] [address] 04/29/2020 11:39:05 04/30/2020 07:51:15 Vulval pain 375395242 R10.2 Prev healthy 24 pt at 23w4d [...] 1 day-Discus sed with primary OB, Dr. Franco-S end for HSV testing-ER precaution s include but not limited to worsening pain/redne ss/swellin g/fevers/c hills [id number] Leonarda Mohr MD [address] [address] 04/30/2020 11:41:17 05/01/2020 13:12:11 Vulval pain 037660071 R10.2 Prev healthy 24 pt at 23w presents for L labia minora pain and swelling x1 day, resolved with warm shower, cold compress and 1 day of keflx & acyclovir. DDx developing abscess-D/ c acyclovir - unlikely HSV given no lesions - will f/u on HSV swab-Luis Fernando nue keflex-Dec lining exam today Pain in lower limb 97911 006 M79.606 B/L LE pain at night x2 days w/o swelling, tenderness . Normal exam. Likely fatigue vs muscle tightness. -Tylenol 500mg before bed - avoid nsaids in - Conservati ve care with warm bath, epsom salt bath, yoga, using foam roller [id number] Haley Frazier DO [address] [address] 05/02/2020 11:29:17 05/02/2020 20:42:46 Routine care 399792959 Z34.91 yo G{{1 2 3 4 * 5 6 7 8 9}}P{{1 2* 3 4 5 6 7 8 9}} female CRISTIAN: {{Sep M jan y Mar D ec}}{{1 [...] consider IOL planning RTC in 4 weeks [id number] Haley Frazier DO [facility] [address] [address] 05/23/2020 09:48:59 05/24/2020 14:56:57 Routine care 982202120 Z34.91 yo G{{1 2 3 4 * 5 6 7 8 9}}P{{1 2* 3 4 5 6 7 8 9}} female CRISTIAN: {{Sep M jan y Mar D ec}}{{1 [...] 4 weeks Administra tion of influenza vaccine 40596739 Z23 [id number] Cait Parrish MD [place] [address] [address] 06/03/2020 11:33:04 06/04/2020 10:30:00 Routine care 581961070 Z34.91 yo G{{1 2 3 4 * 5 6 7 8 9}}P{{1 2* 3 4 5 6 7 8 9}} female CRISTIAN: {{Sep y Mar D ec}}{{1 2 3 [...] IOL planning RTC in 4 weeks Sciatica 25196796 M54.30 Acute, unresolved , stableNo red flag symptomsEx am and symptoms consistent with sciatica- Discussed starting exercises, handout and informatio n given- RTC if no improvemen t Active or passive immunization 456099447 Z23 [id number] Deidre Preston MD [place] [address] [address] 06/12/2020 11:32:58 06/13/2020 08:05:16 Sciatica 87875943 M54.30 Acute, unresolved , stableNo red flag symptoms- Discussed continuing exercises and stretches - Continue flexeril and lidocaine patches, consider repeating 1 week course if symptoms do not improve- Referral to PT placed [id number] Leonarda Mohr MD [place] [id number] [address] 06/21/2020 10:25:17 06/24/2020 08:56:06 Routine care [id number] Z34.89 yo G{{1 2 3 4 * 5 6 7 8 9}}P{{1 2* 3 4 5 6 7 8 9}} female CRISTIAN: {{Sep M ay Jan y Mar D [...] per patient request Benign ges tational thrombocytopenia [id number] D69.59 Platelets have been slowly downtrendi ng. [...] CMP but will obtain to be complete [id number] Gilberto Rosado MD [facility] 47 3 [facility] [address] [place] [address] 06/26/2020 11:24:57 06/27/2020 07:42:52 Routine care [id number] Z34.89 yo G{{1 2 3 4 * 5 6 7 8 9}}P{{1 2* 3 4 5 6 7 8 9}} female @ 31+6w with CRISTIAN: {{Sep M ay Jan y Mar D [...] 2 weeks for LETICIA care Plantar fasciitis 174850 003 M72.2 Bilateral foot pain, physical exam consistent with plantar fasciitis pain- advised to use frozen water bottles to massage and roll out bottom of feet- gave stretches- may use tylenol as needed- reassuranc e given [id number] MD Yelitza Moctezuma 47 3 [facility] [address] [place] [address] 07/08/2020 11:06:08 07/09/2020 09:47:40 Routine care [id number] Z34.89 yo G{{1 2 3 4 * 5 6 7 8 9}}P{{1 2* 3 4 5 6 7 8 9}} female @ 31+6w with CRISTIAN: {{Sep M ay Jan y Mar D [...] in 2 weeks for LETICIA care Sciatica [id number] M54.30 Acute, unresolved , stableNo red flag symptoms- Discussed continuing exercises and stretches - PT informatio n printed- Patient requesting refill for flexeril; PAT discussed [id number] MD Yelitza Mathias 47 3 [facility] [address] [place] [address] 07/16/2020 16:52:29 07/17/2020 09:39:01 Routine care [id number] Z34.89 yo G{{1 2 3 4 * 5 6 7 8 9}}P{{1 2* 3 4 5 6 7 8 9}} female CRISTIAN: {{Sep M ay Jan y Mar D [...] blood pressure (see plan for headache) Headache 27387088 R51.9 Reviewed records from L&D. Patient had [...] BP monitoring . 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 Most recent PreE labs on 07/22 were negative although Pr/Cr ratio continues to rise. Most recent ratio 0.28. Pt will continue weekly preE labs as well as NST on 07/26 and 07/29. Reviewed signs/symp toms of PreE. Strict precaution s provided to patient Tachycardia 2415739 R00. 0 Chronic, stablePt continues to be tachycardi c between 115-120. Most likely associated with and anemia. Encouraged compliance with iron as patient has not been taking it. Encouraged hydration [id number] MD Yelitza Diaz [address] [address] 08/05/2020 13:47:40 08/06/2020 07:59:25 -induced hypertension 91084463 O13.9 Now resolved. Recently diagnosed with gestationa l hypertensi on in past months. Induced at 37 weeks on 08/01 and is now . Most recent PreE labs on L&D admission were negative and Pr/Cr ratio trended down since diagnosis. Most recent ratio 0.12. No red flag symptoms. Hypertensi on resolved and continues to be normal today.- F/U visit in 2 weeks as planned [id number] MD Yelitza Mathias [address] [address] 08/28/2020 11:10:43 09/02/2020 09:11:34 Essential hypertension 35967810 I10 New diagnosisP t with history of gestationa l hypertensi on during multiple pregnancie s. BP today remains elevated. No concern for PreE at this time. ER precuation s provided to patient-Wi ll start Amlodipine 5mgRTC in 1 month for blood pressure check state [id number] 1 Z39.2 Sundance negative [id number] Gilberto Rosado MD [facility] [address] [address] 09/12/2020 16:24:22 09/16/2020 10:29:21 state 50166301 Z39.2 {{4 6*}} weeks , delivered by {{ * LTCS}} - continue to assess for mood/depre ssion at each visit. Sundance negative today - bonding well with baby - control {{IUD Nexplanon OCP mini-pill condoms none*}}. Pt currently declines control as she is in a same sex relationsh ip - Advised if she is experienci ng exhaustion , appetite or sleep disturbanc es, mood swings, anxiety, or feeling overwhelme d, call the office for support and resources. Essential hypertension 73407176 I10 Pt with history of gestationa l hypertensi on during multiple pregnancie s. Recently started on Amlodipine 5mg. BP today within normal limits-Con tinue Amlodipine RTC in 3 months [id number] Cait Parrish MD [facility] [address] [address] 11/08/2020 16:49:49 11/11/2020 12:06:14 Contraception care management [id number] Z30.9 Discussed contracept ion options with patient including risks/bene fits of each. Pt opting for IUD. Plan for Mirena once approved by insurance [id number] Evelin Gonzalez DO [facility] [address] [address] 12/19/2020 11:20:32 12/23/2020 13:24:17 Contraception care management 396902309 Z30.9 After risks/bene fits of IUD placement were reviewed IUD was inserted without complicati ons -Recommend Ibuprofen 600mg q6h Essential hypertension [id number] I10 Chronic, uncontroll ed Pt previously discontinu ed medication due to blood pressure being in normal range. History of Pre-E in multiple pregnancie s. Pt likely has underlying chronic HTN -Restart Amlodipine 5mg RTC in 3 months [id number] MD Yelitza Davis [address] [address] 04/01/2021 17:03:21 04/07/2021 12:55:25 Active or passive immunization 464023559 Z23 Essential hypertension 74112844 I10 Chronic, controlled BP at goal today off of medication . Pt has history of Pre-E in multiple pregnancie s, most recently 8 months ago. This may attribute to previously elevated blood pressures post . Will continue to monitor off medication RTC in 6 months [id number] [facility] [address] [address] 04/30/2021 08:30:24 05/05/2021 09:12:59 Suspected COVID-19 819162138 Z03.89 - If symptoms worsen discussed going [...] isolation, good hand hygeine, washing soap water/hand wool supplier, cleaning household items, staying well hydrated, OTC medication s, as well as rest. Avoid leaving the house unless needs to be evaluated in ER, avoiding public places, public transporta tion. [id number] MD Yelitza Hernandez [address] [address] 06/10/2021 13:28:21 06/12/2021 09:50:38 Muscle pain 37234620 M79.10 Acute, unresolved 2/2 COVID infection. Explained [...] or if swelling or erythema develops COVID-19 570627541 U07.1 [id number] MD Yelitza Westbrook [address] [address] 09/02/2021 09:24:36 09/03/2021 10:27:03 Upper respiratory infection 65171788 J06.9 Acute, stable- Continue support care w/ OTC cough suppresant s and gentle hydration as tolerated. - Recommend getting covid tested and isolate per CDC protocol- Discussed management plan including risk/benef its and return precaution s. Pt voiced understand ing. All questions answered [id number] MD Yelitza Weathers [address] [address] 11/04/2021 09:23:04 11/05/2021 07:53:31 Contraception care management 588046008 Z30.9 Pt requesting IUD removal due to adverse effects. Plan for removal 11/06. Discussed alternativ e options to control bleeding in the future such as OCP. Will discuss more at upcoming visit [id number] MD Yelitza Weathers [address] [address] 11/06/2021 12:07:33 11/06/2021 17:00:28 Contraception care management 316242194 Z30.9 IUD removed intact without complicati ons. Declines additional forms of control today [id number] MD Yelitza DUFF [address] [address] 11/27/2021 12:09:45 12/01/2021 12:58:22 Anxiety 36773427 F41.9 Chronic, uncontroll edGAD-7: 16-Will restart Venlafaxin e 75mg daily as this provided patient benefit in the past-Resta rt Hydroxyzin e TID PRN-Recomm end counseling . [facility] [id number] MD Yelitza Pimentel [address] [address] 04/08/2022 10:05:32 04/09/2022 09:01:39 Dysuria 34011678 R30.9 Acute, unresolved .Prescribe d macrobid yesterday through exchange for acute dysuria. Likely UTI with possible yeast infection. -Continue Macrobid course through end of treatment- UA + UCx ordered.-N uswab ordered.-W ill call patient with results. [id number] Kalie Sevilla-MD Yelitza Lema 3 [facility] [address] [place] [address] 05/22/2022 14:54:26 05/26/2022 08:46:25 Contraception care 318984638 Z30.40 Currently on no contracept ion. Previously [...] nexplanon Screening for malignant neoplasm of cervix 553745311 Z12.4 Per chart review, last pap smear in 2019 and was normal. Next pap smear in 12/2022. [id number] Shawn Cruz MD [facility] [place] [address] [place] [address] 11/29/2023 14:26:57 11/29/2023 15:45:33 Anxiety 78597200 F41.9 Screening for cardiovascular system disease 049315097 Z13.6 Health Concerns Section Related Observation LastModified by Organization Detai ls LastModified Time None Recorded Concern Status LastModified by Organization Details LastModified Time None Recorded Advance Directives Directive None Recorded Payers Encounter Date Sequence Insurance Name Policy Number Policy Abreu Covered Member ID Abreu Member ID Guarantor Name 11/06/[address] [facility] ON OR AFTER 02/06/21 (MEDICAID REPLACEMENT - HMO) Genesis Diallo [id number] Genesis Sargent 11/27/[address] [facility] ON OR AFTER 02/06/21 (MEDICAID REPLACEMENT - HMO) Genesis Diallo [id number] Genesis Sargent 04/08/[address] [facility] ON OR AFTER 02/06/21 (MEDICAID REPLACEMENT - HMO) Genesis Diallo [id number] Genesis Sargent 05/22/[address] [facility] ON OR AFTER 02/06/21 (MEDICAID REPLACEMENT - HMO) Genesis Diallo [id number] Genesis Sargent 11/29/[address] [facility] ON OR AFTER 02/06/21 (MEDICAID REPLACEMENT - HMO) Genesis Diallo [id number] Genesis Sargent Notes Date Note Type Note [...] at this time Gilberto Rosado MD Attn: Accounting,[address] [facility], [place], [address], [facility] 11/07/2021 08:54:21 11/27/2021 text/html Pt presents to [...] diarrhea JAMEEL GODINEZ MD Attn: Accounting[address] [place], [address], [place] [facility] 12/07/2021 19:45:05 04/08/2022 text/html Patient presents for vaginal discharge and dysuria for the past 3 days. Discharge is whitish in color. Also having itchiness. No odor. No hematuria. Some suprapubic pain. Denies fevers, chills, cp, sob, n/v/d. Isrrael Gaines MD Attn: [address]ing[address] [place], [address], [facility] 04/15/2022 09:07:26 05/22/2022 text/html 27 yo; PMHx [...] soon. 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 Shawn Cruz MD Attn: Accounting[address] [place], [address], [place] [facility] 11/29/2023 23:09:00 OBGyn Episode Ob Episode Information Episode Created Date Number of Fetuses Patient Bloodtype Patient rh Status Prepregnancy Weight lbs Domestic Partner Domestic Partner Phone Father Name Mechanic Welder Status 12/27/19 1 A Negative CLOSED Fetus Data First Name Last Name Admitted to NICU Weight (g) Sex Living Outcome Pediatric Complications Fetus ID Race Codes Race Delivery Type [id number] Problems Problem Notes Problem Name Start Date End Date Resolution Snomed Code Not e Plantar fasciitis 06/26/[id number] Cristian Calculation Initial Cristian Date Initial Exam Date Initial Exam Provider Initial Ultrasound Date Last Menstrual Period Date Ultra Sound Weeks Gestation 08/22/2020 12/27/2019 [email or web address] 11/16/2019 0 Eighteen To Twenty Week Cristian Update Ultra Sound Date Fundal Height At Umbil Quickening Date Ultra Sound Latest Weeks Gestation Final Cristian Confirmed By Final Cristian Confirmed Date Final Cristian Date Ultra Sound Latest Days Gestation 0 08/22/19 0 Pre- Flowsheet Flowsheet Date 12/25/2019 Smith Score Blood Edema Fundus Height Fundus Units Glucose Ketones Leukocytes Nitrite Labor Signs Protein Cervic Dilation Cervic Effacement Cervic Station Type Weight in lbs Pre/Post Dialysis Refused Weight 148.897250520905 BP Diastolic BP Location Tested BP Systolic BP Type 80 150 sitting Fetus Heart Rate Present Fetus Movement Comments Flowsheet Date 01/02/2020 Smith Score Blood Edema Fundus Height Fundus Units Glucose Ketones Leukocytes Nitrite Labor Signs Protein Cervic Dilation Cervic Effacement Cervic Station Type Weight in lbs Pre/Post Dialysis Refused Weight 146.925555283499 BP Diastolic BP Location Tested BP Systolic BP Type 68 130 sitting Fetus Heart Rate Present Fetus Movement Comments Flowsheet Date 01/23/2020 Smith Score Blood Edema Fundus Height Fundus Units Glucose Ketones Leukocytes Nitrite Labor Signs Protein Cervic Dilation Cervic Effacement Cervic Station Type Weight in lbs Pre/Post Dialysis Refused Weight 145.3227637422 BP Diastolic BP Location Tested BP Systolic BP Type 74 124 sitting Fetus Heart Rate Present Fetus Movement Comments Flowsheet Date 02/01/2020 Smith Score Blood Edema Fundus Height Fundus Units Glucose Ketones Leukocytes Nitrite Labor Signs Protein Cervic Dilation Cervic Effacement Cervic Station Type Weight in lbs Pre/Post Dialysis Refused Weight 141.756712115296 BP Diastolic BP Location Tested BP Systolic BP Type 76 114 sitting Fetus Heart Rate Present Fetus Movement Comments Flowsheet Date 02/27/2020 Smith Score Blood Edema Fundus Height Fundus Units Glucose Ketones Leukocytes Nitrite Labor Signs Protein Cervic Dilation Cervic Effacement Cervic Station Type Weight in lbs Pre/Post Dialysis Refused Weight 145.856105267523 BP Diastolic BP Location Tested BP Systolic BP Type 72 112 sitting Fetus Heart Rate Present Fetus Movement Comments Flowsheet Date 03/27/2020 Smith Score Blood Edema Fundus Height Fundus Units Glucose Ketones Leukocytes Nitrite Labor Signs Protein Cervic Dilation Cervic Effacement Cervic Station Type Weight in lbs Pre/Post Dialysis Refused Weight 149.128053971765 BP Diastolic BP Location Tested BP Systolic BP Type 82 120 sitting Fetus Heart Rate Present Fetus Movement Comments Flowsheet Date 04/25/2020 Smith Score Blood Edema Fundus Height Fundus Units Glucose Ketones Leukocytes Nitrite Labor Signs Protein Cervic Dilation Cervic Effacement Cervic Station Type Weight in lbs Pre/Post Dialysis Refused Weight 156.473298296934 BP Diastolic BP Location Tested BP Systolic BP Type 70 122 sitting Fetus Heart Rate Present Fetus Movement Comments Flowsheet Date 04/29/2020 Smith Score Blood Edema Fundus Height Fundus Units Glucose Ketones Leukocytes Nitrite Labor Signs Protein Cervic Dilation Cervic Effacement Cervic Station Type Weight in lbs Pre/Post Dialysis Refused Weight 157.137636703921 BP Diastolic BP Location Tested BP Systolic BP Type 70 124 sitting Fetus Heart Rate Present Fetus Movement Comments Flowsheet Date 04/30/2020 Smith Score Blood Edema Fundus Height Fundus Units Glucose Ketones Leukocytes Nitrite Labor Signs Protein Cervic Dilation Cervic Effacement Cervic Station Type Weight in lbs Pre/Post Dialysis Refused Weight 159.241862964515 BP Diastolic BP Location Tested BP Systolic BP Type 74 120 sitting Fetus Heart Rate Present Fetus Movement Comments Flowsheet Date 05/02/2020 Smith Score Blood Edema Fundus Height Fundus Units Glucose Ketones Leukocytes Nitrite Labor Signs Protein Cervic Dilation Cervic Effacement Cervic Station Type Weight in lbs Pre/Post Dialysis Refused Weight 159.289271893457 BP Diastolic BP Location Tested BP Systolic BP Type 70 110 Fetus Heart Rate Present Fetus Movement Comments Flowsheet Date 05/23/2020 Smith Score Blood Edema Fundus Height Fundus Units Glucose Ketones Leukocytes Nitrite Labor Signs Protein Cervic Dilation Cervic Effacement Cervic Station Type Weight in lbs Pre/Post Dialysis Refused Weight 165.124361059455 BP Diastolic BP Location Tested BP Systolic BP Type Fetus Heart Rate Present Fetus Movement Comments Flowsheet Date 06/03/2020 Smith Score Blood Edema Fundus Height Fundus Units Glucose Ketones Leukocytes Nitrite Labor Signs Protein Cervic Dilation Cervic Effacement Cervic Station Type Weight in lbs Pre/Post Dialysis Refused Weight 172.591599491204 BP Diastolic BP Location Tested BP Systolic BP Type 64 120 sitting Fetus Heart Rate Present Fetus Movement Comments Flowsheet Date 06/12/2020 Smith Score Blood Edema Fundus Height Fundus Units Glucose Ketones Leukocytes Nitrite Labor Signs Protein Cervic Dilation Cervic Effacement Cervic Station Type Weight in lbs Pre/Post Dialysis Refused Weight 174.289217639048 BP Diastolic BP Location Tested BP Systolic BP Type 68 122 sitting Fetus Heart Rate Present Fetus Movement Comments Flowsheet Date 06/21/2020 Smith Score Blood Edema Fundus Height Fundus Units Glucose Ketones Leukocytes Nitrite Labor Signs Protein Cervic Dilation Cervic Effacement Cervic Station Type Weight in lbs Pre/Post Dialysis Refused Weight 177.972903469144 BP Diastolic BP Location Tested BP Systolic BP Type 64 126 sitting Fetus Heart Rate Present Fetus Movement Comments Flowsheet Date 06/26/2020 Smith Score Blood Edema Fundus Height Fundus Units Glucose Ketones Leukocytes Nitrite Labor Signs Protein Cervic Dilation Cervic Effacement Cervic Station 33 cm Type Weight in lbs Pre/Post Dialysis Refused Weight 178.864555523133 BP Diastolic BP Location Tested BP Systolic BP Type 68 130 sitting Fetus Heart Rate Present A 152 Present Fetus Movement A Yes Comments Flowsheet Date 07/08/2020 Smith Score Blood Edema Fundus Height Fundus Units Glucose Ketones Leukocytes Nitrite Labor Signs Protein Cervic Dilation Cervic Effacement Cervic Station Type Weight in lbs Pre/Post Dialysis Refused Weight 182.096770413303 BP Diastolic BP Location Tested BP Systolic BP Type 70 124 sitting Fetus Heart Rate Present Fetus Movement Comments Flowsheet Date 07/16/2020 Smith Score Blood Edema Fundus Height Fundus Units Glucose Ketones Leukocytes Nitrite Labor Signs Protein Cervic Dilation Cervic Effacement Cervic Station Type Weight in lbs Pre/Post Dialysis Refused Weight 186.359231971525 BP Diastolic BP Location Tested BP Systolic BP Type 84 140 sitting Fetus Heart Rate Present Fetus Movement Comments Flowsheet Date 07/24/2020 Smith Score Blood Edema Fundus Height Fundus Units Glucose Ketones Leukocytes Nitrite Labor Signs Protein Cervic Dilation Cervic Effacement Cervic Station Type Weight in lbs Pre/Post Dialysis Refused Weight 186.57939463788 BP Diastolic BP Location Tested BP Systolic [...] Weight in lbs Pre/Post Dialysis Refused Weight 172.154794843286 BP Diastolic BP Location Tested BP Systolic BP Type 90 142 sitting 92 142 sitting Fetus Heart Rate Present Fetus Movement Comments Flowsheet Date 09/12/2020 Smith Score Blood Edema Fundus Height Fundus Units Glucose Ketones Leukocytes Nitrite Labor Signs Protein Cervic Dilation Cervic Effacement Cervic Station Type Weight in lbs Pre/Post Dialysis Refused Weight 169.747915357342 BP Diastolic BP Location Tested BP Systolic [...]
--- NOTE | 2024-12-27 20:07 | OBADM ---
This patient, Genesis Sargent, admitted to the OB room OB Post 115 for observation. Patient/family oriented to hospital policies and general routines including ID bracelet, bed and alarms, visiting hours, pain management, procedures, bathroom and other care routines, personal items, smoking policy, room service/diet, and visiting hours. Patient/Family are encouraged to report perceived risks to care and to ask questions if they do not understand what they are told or what they should do.
--- NOTE | 2024-12-27 20:10 | PC.NURSE ---
No vaginal bleeding at this time.
--- NOTE | 2024-12-27 20:20 | PC.NURSE ---
Called Dr. Portillo, update on pt, antibiotic prescription, cramping, vaginal bleeding, tracing, blood pressure, and no vaginal bleeding at this time. Orders received to discharge pt with instructions to continue cephalexin, call the office tomorrow to make an appointment, and when to return to the unit.
--- NOTE | 2024-12-27 20:41 | PC.NURSE ---
Pt discharged with instructions to continue cephalexin, call the office tomorrow and make an appointment, and when to return to the unit, pt verbalizes understanding.
--- NOTE | 2024-12-28 07:48 | PM.OBTRLD ---
OB - Triage/Final Diagnosis Visit Information Date of evaluation: 12/27/24 Reason for evaluation: threatened labor Comments/Additional reasons for admission: I have assessed the risk for this patient, Genesis Irene Sargent, and determined that she would benefit from observation care. Evaluation Vital signs: Vital Signs - 24 hr 12/27/24 19:35 12/27/24 19:39 12/27/24 19:44 Temperature Pulse Rate Blood Pressure Pulse Oximetry 100 100 100 Oxygen Delivery 12/27/24 19:45 12/27/24 19:49 12/27/24 19:54 Temperature Pulse Rate 103 H Blood Pressure 141/91 H Pulse Oximetry 100 100 Oxygen Delivery 12/27/24 19:59 12/27/24 20:01 12/27/24 20:03 Temperature 99.3 F Pulse Rate 107 H Blood Pressure 130/78 Pulse Oximetry 100 Oxygen Delivery 12/27/24 20:04 12/27/24 20:06 12/27/24 20:09 Temperature Pulse Rate Blood Pressure Pulse Oximetry 99 100 Oxygen Delivery Room Air 12/27/24 20:14 12/27/24 20:19 12/27/24 20:24 Temperature Pulse Rate Blood Pressure Pulse Oximetry 98 100 100 Oxygen Delivery
== END 2024-12-27 20:41 | disposition home or self-care (01) ==
PROVIDERS: Admitting Provider Student in an Organized Health Care Education/Training Program; Visit Provider Student in an Organized Health Care Education/Training Program
DX: O47.02 False labor before 37 completed weeks of gestation, second trimester (principal); Z3A.24 24 weeks gestation of pregnancy
CPT/HCPCS: G0378; G0379

== ENCOUNTER 2025-01-31 17:14 | Observation (INO) | payer OTHER, SELFPAY ==
[2025-01-31 17:37] VITALS: BP 135/89; PULSE 127
[2025-01-31 17:40] VITALS: BMI 35.0
--- NOTE | 2025-01-31 17:40 | OBADM ---
This patient, Genesis Sargent, admitted to the OB room 117 for observation. Patient/family oriented to hospital policies and general routines including ID bracelet, bed and alarms, visiting hours, pain management, procedures, bathroom and other care routines, personal items, smoking policy, room service/diet, and visiting hours. Patient/Family are encouraged to report perceived risks to care and to ask questions if they do not understand what they are told or what they should do.
[2025-01-31 18:06] LABS: Add Urine Microscopic? YES; Appearance Urine Clear (Clear); Bacteria Urine Rare /hpf; Bilirubin Urine Negative (Negative); Blood Urine 2+ (Negative); Color Urine Yellow (Yellow); Glucose Urine UA Negative (Negative); Ketones Urine Negative (Negative); Leukocyte Esterase Ur 3+ LEU/UL (Negative); Nitrate Urine Negative (Negative); Non Pathogenic Casts 0-2; Protein Urine Negative (Negative); RBC Urine 0-2 /hpf (0-2); Specific Grav Ur 1.003 (1.001-1.035); Squamous Epithelial Cell Urine Few /hpf (Few); Urobilinogen Urine 0.2 mg/dL (<2.0); WBC Urine 21-50 /hpf (0-3)
--- NOTE | 2025-01-31 19:12 | PC.NURSE ---
Pt discharged with instructions to keep next scheduled appointment and when to return to the unit, pt verbalizes understanding.
--- NOTE | 2025-01-31 19:12 | PC.NURSE ---
Called Dr. Portillo, update on pt, dry mouth, and labs. Orders received to discharge pt with instructions to keep next scheduled appointment, and when to return to the unit.
[2025-01-31] MEDS: RHO(D) IMMUNE GLOBULIN 300 MCG/2 ML SYRINGE IM (20:29)
--- NOTE | 2025-02-01 07:22 | PM.OBTRLD ---
OB - Triage/Final Diagnosis Visit Information Date of evaluation: 01/31/25 Reason for evaluation: other (dry mouth) Comments/Additional reasons for admission: I have assessed the risk for this patient, Genesis Sargent, and determined that she would benefit from observation care. Evaluation Laboratory results: Laboratory Tests 01/31/25 01/31/25 17:44 18:46 Urine Color Yellow Urine Appearance Clear Urine pH 7.0 Ur Specific Friendship 1.003 Urine Protein Negative Urine Glucose (UA) Negative Urine Ketones Negative Ur Blood (Man) 2+ H Urine Nitrate Negative Urine Bilirubin Negative Urine Urobilinogen 0.2 Ur Leukocyte Esterase 3+ H Urine RBC 0-2 Urine WBC 21-50 H Ur Squamous Epith Cells Few Urine Bacteria Rare Urine Casts 0-2 Blood Type A Negative Antibody Screen Negative Screen Negative Baby's Blood Type Not Reportable Baby's BERNA Not Reportable Doses of RhIg Required 1 Vital signs: Vital Signs - 24 hr 01/31/25 17:37 01/31/25 17:40 Pulse Rate 127 H Blood Pressure 135/89 Oxygen Delivery Room Air
== END 2025-01-31 19:12 | disposition home or self-care (01) ==
PROVIDERS: Admitting Provider Student in an Organized Health Care Education/Training Program; Visit Provider Student in an Organized Health Care Education/Training Program
DX: O26.893 Other specified pregnancy related conditions, third trimester (principal); R68.2 Dry mouth, unspecified; Z3A.29 29 weeks gestation of pregnancy
CPT/HCPCS: 36415; 81001; 85461; 86850; 86900; 86901; 90384; 96372; G0378; G0379; J2790

== ENCOUNTER 2025-02-17 06:08 | Observation (INO) | payer OTHER, SELFPAY ==
[2025-02-17] VITALS (11 sets, daily range): BP systolic 121–158; BP diastolic 55–97; PULSE 98–115; TEMP 36.4–36.7; BMI 35.2
--- NOTE | ~2025-02-17 | US_ITS ---
EXAMINATION: US OB limited DATE: 02/17/2025 09:19 INDICATION: labor during early third trimester of . Assess placenta, amniotic fluid index, position and cervical length. TECHNIQUE: Real-time ultrasound of the pelvis was performed. The interpreting radiologist was not pre sent for the study. COMPARISON: None. FINDINGS: There is a single living fetus in vertex presentation. The placenta is fundal and not low-lying. Cer vical length measures approximately 4 cm which is normal. heart rate is 155 beats per minute (b pm). The amniotic fluid index is 12.9 cm, which is normal. (5th%-95%: 8.6-24.2 cm at 31 weeks estimat ed gestational age). IMPRESSION: 1. Single living fetus in vertex presentation with heart rate of 155 bpm. 2. Normal amniotic fluid index of 12.9 cm. Reviewed, dictated and finalized at location A.
--- OUTSIDE RECORDS SUMMARY | 2025-02-17 06:14 | XMS_ITS | Clinical Summary ---
Author Organization [facility] Address [address] [place] [address] Care Team Providers Care Geographic Information Systems Analyst Name Role Phone Unavailable Primary Care Provider Unavailabl e Source Comments [facility],non-owned Affiliates and Associated Physician Practices is amultiple site organization consisting of ambulatory clinics and hospital sitesin [place], [place], [place] and [place]. This disclosure is being madepursuant to the Care Everywhere program and may not contain all information available regarding this patient. Last updated 18.[facility] Allergies No known active allergies Medications * Be aware that medications may not be up to date on this document. Alwaysverify current medications with the patient. Vit-Fe Fumarate-FA ( VITAMIN) 28-0.8 MG tablet Take 1 Tab by mouth once daily Active insulin NPH (HUMULIN N) vial Take 24 units in the morning and 10 units at bedtime. 20 mL 1 6 Active Additional Information Patient not taking.Reported on 11/29/2024 Insulin Syringe-Needle U-100 (BD ULTRAFINE 31 G X 6 MM 0.5 ML) 31G X 15/64 0.5 ML syringe Use one syringe for each injection. 4 injections per day. 100 Syringe 1 6 Active Additional Information Patient not taking.Reported on 11/29/2024 pyridoxine (VITAMIN B-6) 25 MG tablet Take 25 mg by mouth nightly as needed Active sertraline (ZOLOFT) 25 MG tabletIndicatio ns:Generalized Anxiety Disorder Take 25 mg by mouth [...] but they were making her sick. Active Active Problems Problem Noted Date Diagnosed Date [...] Encounters Date Type Department Care Team Description 02/15/2025 9:00 AM CDT Hospital Encounter [facility] [address] [place] [address] Gabriel Mariano MD 02/15/2025 Telephone [facility] [address] [place] [address] Cherie Valerio Appointment 11/29/2024 9:51 AM CDT - 11/29/2024 11:59 PM CDT Hospital Encounter [facility] [address] [place] [address] ShaquilleShawn castro MD Mead, Judith A, MD Discharge Disposition: Home or Self Care 11/29/2024 9:45 AM CDT - 11/29/2024 9:50 AM CDT Hospital Encounter [facility] [address] [place] [address] Shawn Corbin MD Mead, Judith A, MD [...] on file 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[employer] Gender Identity Not on file Sexual Orientation [...] 11:10 AM CDT Height 157.5 cm (5' 2) 11/29/2024 11:10 AM CDT Body Mass Index 31.46 11/29/2024 11:10 AM CDT Plan of Treatment Upcoming Encounters Date Type Department Care Team (Late st Contact Info) Description 02/22/2025 2:30 PM CDT Hospital Encounter [facility] [address] [place] [address] Health Maintenance Due Date Last Done Comments HEPATITIS C SCREENING 03/09/2014 DTAP/TDAP/TD VACCINES (1 - Tdap) 2015 HEPATITIS B VACCINE (1 of 3 - 19+ 3-dose series) 2015 PAP SMEAR 2017 HPV VACCINE (1 - 3-dose SCDM series) 2023 COVID-19 VACCINE (2 - 2023-2 5 season) 2024 09/27/2020 DEPRESSION SCREENING 08/09/2024 OB-ONE HOUR GLUCOSE 01/07/2025 05/02/2020 OB-TDAP CURRENT 01/14/2025 OB-RHOGAM INJECTION 01/21/2025 OB-GROUP B STREP SCREEN 03/11/2025 07/16/2020 INFLUENZA VACCINE (#1) 2025 ZOSTER VACCINE (1 of 2) 2046 [...] AM CDT Encounter for ultrasound (HCC) Fifth (HCC) History of delivery, currently (HCC) History of gestational diabetes in prior , currently (HCC) Anxiety Smoker Rh negative, antepartum (HCC) Hx of preeclampsia, prior , currently , unspecified trimester (HCC) 20 weeks gestation of (HCC) from Last 3 Months Results * SONOGRAM - COMPLETE (11/29/2024 10:32 AM CDT) Linked Results Indication ======== Thrombocytopenia, likely gestational, Anxiety, Rh negative History of hypertension during Obesity BMI 31 History ====== OB History 5. Para 3 C2O1W2H5 1. live 08/08/2015. Gest. age 39 w [...] Placenta: Placental site: anterior, no previa. Placental [id number]-[id number] os distance 23 mm Umbilical cord: Cord [...] 0 lb 12 oz EFW by [facility] ([id number]) Head / Face / Neck Biometry: CM [...] Heart / Thorax LVOT view. 3-vessel view. 7-ygbyzt-jcgjsbj view. Aortic arch view. Ductal arch view. [...] and to complete anatomic survey. See separate [facility] visit note. Coding ====== Procedures 10785: US Preg Uterus Detailed 11888: US Preg Uterus Transvaginal [facility] PACS Anatomical Region Laterality Modality Other 11/29/2024 10:3 2 AM CDT us Abner Portillo MD [facility] ORDERABLES Edited Result - Final from Last 3 Months Insurance [facility] [id number]
--- OUTSIDE RECORDS SUMMARY | 2025-02-17 06:15 | XMS_ITS | Encounter Summary ---
Author Organization [facility] Address [address] [place] [address] Care Team Providers Care Testing Manager Name Role Phone Unavailable Primary Care Provider Unavailabl e Reason for Visit * Reason Comments Ultrasound Maternal Medicine Encounter Details Date Type Department Care Team (Late Contact Info) Description 02/15/2025 9:00 AM CDT Hospital Encounter [facility] [address] [place] [address] Gabriel Mariano MD [address] [id number] Social History Tobacco Use Types Packs/Day Years [...] on file 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 Gender Identity Not on file Sexual Orientation Not on file documented as of this encounter Plan of Treatment Upcoming Encounters Date Type Department Care Team (Late Contact Info) Description 02/22/2025 2:30 PM CDT Hospital Encounter [facility] [address] [place] [address] documented as of this encounter Visit Diagnoses Diagnosis Gestational thrombocytopenia, second trimester (HCC)- Primary 31 weeks gestation of (HCC) state, incidental Encounter for ultrasound to assess growth (HCC) Encounter for follow-up ultrasound of anatomy (HCC) Gestational thrombocytopenia, second trimester (HCC)- Primary documented in this encounter
--- OUTSIDE RECORDS SUMMARY | 2025-02-17 06:15 | XMS_ITS | Data Portability ---
Author Organization [facility] Ritu [facility] Address [address] [place] [address] Care Team Providers Care Mail Processor Name Role Phone RONAK GUY Primary Care [...] 4 months she was advised to see MORTGAGE B[employer]ER yearly she says it has been a year or 2 since last Pap advised to stay up-to-date on immunizations [email or web address] Not available 11/29/2023 23:08:29 Plan of Treatment Reminders Order Date Submit Date Provider Last Modified By Organization Details Last Modified Time Details Appointments None recorded. Lab lipid panel, serum 2023 024 [email or web address] [facility], [address], [address], [place], [address], 4 15:22:51 CMP, serum or plasma 2023 024 [id number] [facility], [address] [facility] [address], [address], [place], [address], 4 15:22:51 CBC w/ auto diff 2023 024 [facility], [address], [address], [place], [address], 4 15:22:51 TSH, ultra-sens itive, serum 2023 024 [email or web address] [facility], [address] [facility] [address], [address], [place], [address], 4 15:22:51 unlisted lab - T4, free 2023 024 [email or web address] [facility], [address], [address], [place], [address], 4 15:22:51 T3, free, serum or plasma 2023 024 [email or web address] [facility], [address], [address], [place], [address], 4 15:22:51 urinalysis , dipstick 2021 022 PAULO In-Office Order, Internal Use Only DO Not Attach Compendium DO Not Attach Compendium, Do Not Delete/merge, [id number] 2 11:45:56 vaginal pathogens panel, RUCHI+probe, vaginal fluid 2021 022 PAULO [facility], [address], [address], [place], [address], 2 20:08:21 culture, urine 2021 022 PAULO [facility], [address], [address], [place], [address], 2 20:08:22 Referral None recorded. Procedures None recorded. Surgeries None recorded. Imaging None recorded. Medication Orders Zoloft 25 mg tablet 2023 [facility] #[id number], [address], [place], [place], [id number], 15:23:23 hydroxyzin e HCl 25 mg tablet 2023 [facility] #[id number], [address], [place], [place], [id number], 4 15:23:28 venlafaxin e ER 75 mg capsule,ex tended release 24 hr 2021 [facility] #90167, [address], [place], [id number], 14:33:14 hydroxyzin e HCl 25 mg tablet 2021 022 [facility], [address], [place], [id number], 14:32:37 Patient TargetsNo targets recorded. Patient Instructions Encounter Date Encounter Id Patient Instructions Last Modified By Organization Details Last Modified Time 11/06/2021 [id number] I was present and available in the Family Medicine clinic to discuss this patient's care during the appointment. I agree with the resident's assessment and plan as documented. Gilberto Rosado [email or web address] Not available 11/07/2021 08:54:16 11/27/2021 [id number] I was present and available in the Family Medicine clinic to discuss this patient's care for the duration of the appointment. I agree with the resident's assessment and plan as documented with the following addendum: None. Dr. Jameel Godinez MD Attending Physician, [facility]. [email or web address] Not available 12/07/2021 19:45:01 04/08/2022 [id number] I was present and available in the Family Medicine clinic to discuss this patient's care during the appointment. I agree with the resident's assessment and plan as documented. KGR [email or web address] Not available 04/15/2022 09:07:18 05/22/2022 [id number] I was present and available in the [...] te - 1 score Not Available [facility] ([facility]) [address] [facility], [place], [address], 04/16/2022 20:08:21 04/08/20 22 04/10/2022 NUA B VAGIN ITIS PLUS (VG+) bvab 2 High - 2 score abnormal Not Available [facility] ([facility]) [address] [facility], [place], [address], 04/16/2022 20:08:21 04/08/20 22 04/10/2022 NUA B VAGIN ITIS PLUS (VG+) megasphaera 1 [...] Drug Admin istra tion. Not Available [facility] ([facility]) [address] [facility], [place], [address], 04/16/2022 20:08:21 04/08/20 22 04/10/2022 NUSWA B VAGIN ITIS PLUS (VG+) joe albicans, RUCHI Negati ve negati ve Not Available [facility] ([facility]) [address] [facility], [place], [address], 04/16/2022 20:08:21 04/08/20 22 04/10/2022 NUSWA B VAGIN ITIS PLUS (VG+) joe glabrata, RUCHI Negati ve negati ve Not Available [facility] ([facility]) [address] [facility], [place], [address], 04/16/2022 20:08:21 04/08/20 22 04/16/2022 NUSWA B VAGIN ITIS PLUS (VG+) trich vag by RUCHI TNP Test not perfo rmed. Insuf ficie nt speci men to perfo rm or compl ete sruthi sis. Not Available [facility] ([facility]) [address] [facility], [place], [address], 04/16/2022 20:08:21 04/08/20 22 04/16/2022 NUSWA B VAGIN ITIS PLUS (VG+) chlamydia trachomatis, RUCHI TNP Test not perfo rmed. Insuf ficie nt speci men to perfo rm or compl ete sruthi sis. Not Available [facility] ([facility]) [address] [facility], [place], [address], 04/16/2022 20:08:21 04/08/20 22 04/16/2022 NUA B VAGIN ITIS PLUS (VG+) neisseria gonorrhoeae, RUCHI TNP Test not perfo rmed. Insuf ficie nt speci men to perfo rm or compl ete sruthi sis. Not Available [facility] ([facility]) [address] [facility], [place], [address], 04/16/2022 20:08:21 04/08/20 22 04/09/2022 URINE CULTU RE, ROUTI NE urine culture, routine TNP Test not perfo rmed. No urine speci men was recei kristen for cultu re. Not Available [facility] ([facility]) [address] [place], [address], 04/16/2022 20:08:22 04/08/20 22 04/09/2022 SPECI MEN STATU S REPOR T specimen status report TNP Test not perfo rmed. No urine speci men was recei kristen for cultu re. TEST: [id number] 7 Urine Cultu re, Routi ne Not Available [facility] ([facility]) [address] [place], [address], 04/16/2022 20:08:23 04/08/20 22 04/16/[address] PROBL EM request problem TNP Test not perfo rmed. Insuf ficie nt speci men to perfo rm or compl ete sruthi sis. TEST: 25548 7 Trich vag by RUCHI Panel : [id number] 7 Chlam ydia trach omati s, RUCHI Panel : [id number] 1 [id number] 4 Neiss eria gonor rhoea e, RUCHI Panel : [id number] Not Available [facility] ([facility]) [address] [place], [address], 04/16/2022 20:08:23 04/08/20 22 04/08/2022 urina lysis , dipst ick Leukocytes Small Not Available In-Offi ce Order Internal Use Only DO Not Attach Compendium DO Not Attach Compendium, Do Not Delete/merge, [id number] 04/08/2022 10:34:48 04/08/20 22 04/08/2022 urina lysis , dipst ick Nitrite negati ve Not Available In-Office Order Internal Use Only DO Not Attach Compendium DO Not Attach Compendium, Do Not Delete/merge, [id number] 04/08/2022 10:34:48 04/08/20 22 04/08/2022 urina lysis , dipst ick Urobilinogen .2 Not Available In-Of fice Order Internal Use Only DO Not Attach Compendium DO Not Attach Compendium, Do Not Delete/merge, [id number] 04/08/2022 10:34:48 04/08/20 22 04/08/2022 urina lysis , dipst ick Protein Negati ve Not Available In-Office Order Internal Use Only DO Not Attach Compendium DO Not Attach Compendium, Do Not Delete/merge, [id number] 04/08/2022 10:34:48 04/08/20 22 04/08/2022 urina lysis , dipst ick pH 5.0 Not Available In-Office Order Internal Use Only DO Not Attach Compendium DO Not Attach Compendium, Do Not Delete/merge, [facility] 04/08/2022 10:34:48 04/08/20 22 04/08/2022 urina lysis , dipst ick Blood Negati ve Not Available In-Office Order Internal Use Only DO Not Attach Compendium DO Not Attach Compendium, Do Not Delete/merge, [facility] 04/08/2022 10:34:48 04/08/20 22 04/08/2022 urina lysis , dipst ick Specific Imboden 1.025 Not Available In-Off ice Order Internal Use Only DO Not Attach Compendium DO Not Attach Compendium, Do Not Delete/merge, [facility] 04/08/2022 10:34:48 04/08/20 22 04/08/2022 urina lysis , dipst ick Ketone Trace Not Available In-Office Order Internal Use Only DO Not Attach Compendium DO Not Attach Compendium, Do Not Delete/merge, [facility] 04/08/2022 10:34:48 04/08/20 22 04/08/2022 urina lysis , dipst ick Bilirubin Negati ve Not Available In-Office Order Internal Use Only DO Not Attach Compendium DO Not Attach Compendium, Do Not Delete/merge, [facility] 04/08/2022 10:34:48 04/08/20 22 04/08/2022 urina lysis , dipst ick Glucose Negati ve Not Available In-Office Order Internal Use Only DO Not Attach Compendium DO Not Attach Compendium, Do Not Delete/merge, [id number] 04/08/2022 10:34:48 04/08/20 22 04/08/2022 urina lysis , dipst ick Appearance Cloudy Not Available In-Offi ce Order Internal Use Only DO Not Attach Compendium DO Not Attach Compendium, Do Not Delete/merge, [id number] 04/08/2022 10:34:48 04/08/20 22 04/08/2022 urina lysis , dipst ick Color Dark Yellow Not Available In-Office Order Internal Use Only DO Not Attach Compendium DO Not Attach Compendium, Do Not Delete/merge, [id number] 04/08/2022 10:34:48 Result Notes None recorded. Problems Name Problem SNOMED Code Status Onset Date Resolution Date Notes Provider Name and Address Organization Details Recorded Time Generali zed anxiety disorder 97019744 Active 2017 Sage palacio, [place] - [place] 8 08:57:32 Tobacco user 939135296 Active 2018 2-3 cigarette s a day Kerrie [place]acio, [place] - [facility] 9 15:21:37 Pregnanc y 50496277 Completed 201908/21/2020 ASH[place], [place] - [place] 1 16:17:45 Vulval pain 034515560 Active 2019 Prev healthy 24 pt at [...] - [facility] 0 13:39:07 Plantar fasciiti s 129093425 Active 2019 [place]SH[place], [place] - [place] 17:07:38 Plantar fasciiti s 052608899 Completed 2019 Natalia MarbellaASHLEY null, [place] - [place] 17:07:38 COVID-19 647915271 Active 2020 Kerrie Joan null, [place] - [facility] 15:21:18 Anxiety 65427181 Active 2023 Shawn Cruz MD Attn: Claudiosisi saeed,[address] [facility], [place], [address], [facility] - SI 4 23:08:40 Problem Notes None recorded. Procedures Surgical History Date Name Laterality Status Provider Name and Address Organization Details Recorded Time 2 IUD Removal completed Kerrie Joan [place] - [facility] 11/06/2021 14:46:00 1 IUD Insertion completed Kerrie Joan [place] - [place] 12/20/2020 11:06:57 9 Control Implant Removal completed Kerrie Joan [place] - [place] 06/14/2019 15:26:13 Imaging Results None recorded. Procedure [...] in Arterial blood by Pulse oximetry Systolic And Diastolic Provider Name and Address Organization Details Last Updated DateTime 2 157.48 cm 27.3 kg/m2 11453.2 6 g 82 /min 98.1 [degF] 97 % 97 % 132/84 mm[Hg] Jarod Lr CMA [facility] 2 12:34:22 Date Recorded Systolic And Diastolic Provider Name and Address Organization Details Last Updated DateTime 11/27/2021 130/82 mm[Hg] Kerrie Franco [facility] 11/27 16:26:23 Date Recorded Body height Body mass index (BMI) Body weight Heart rate Oxygen saturation Oxygen saturation in Arterial blood by Pulse oximetry Body temperature Systolic And Diastolic Provider Name and Address Organization Details Last Updated DateTime 2 157.48 cm 28.4 kg/m2 92495.5 2 g 85 /min 95 % 95 % 98.5 [degF] 146/92 mm[Hg] iNkole Osman MA [facility] 2 16:18:31 Date Recorded Body weight Body mass index (BMI) Body height Heart rate Body temperature Oxygen saturation Oxygen saturation in Arterial blood by Pulse oximetry Systolic And Diastolic Provider Name and Address Organization Details Last Updated DateTime 4 85890.5 6 g 29.8 kg/m2 157.48 cm 92 /min 98.6 [degF] 98 % 98 % 132/86 mm[Hg] Reba Pak [place] - [facility] 4 14:43:32 Date Recorded Body height Body mass index (BMI) Body weight Body temperature Heart rate Oxygen saturation Oxygen saturation in Arterial blood by Pulse oximetry Systolic And Diastolic Provider Name and Address Organization Details Last Updated DateTime 2 157.48 cm 27.4 kg/m2 54048.4 1 g 98.4 [degF] 93 /min 100 % 100 % 124/85 mm[Hg] Kathi Cook [place] - [facility] 2 10:17:55 Date Recorded Body height Body mass index (BMI) Body weight Body temperature Heart rate Oxygen saturation Oxygen saturation in Arterial blood by Pulse oximetry Systolic And Diastolic Provider Name and Address Organization Details Last Updated DateTime 2 157.48 cm 27.3 kg/m2 24557.2 6 g 98.3 [degF] 74 /min 99 % 99 % 130/80 mm[Hg] Juliet Dong CMA [place] - [facility] 2 15:26:51 Social History Question Answer Notes LastModified by Organizat ion Details LastModified Time Tobacco Smoking Status Former Smoker quit in 2016 Reba Pak MA null, [place] - [facility] 11/29/2023 14:41:24 Are You Blind Or Do [...] anxious, or unable to sleep at night)? [id number] Information not available 11/29/2023 Family History Nothing Reported. Medical History Condition Response Anxiety Disorder Y Depression Y Gynecological History Statement/Question Response Flow Moderate [...] SNOMED-CT Code Diagnosis ICD10 Code Diagnosis Note [id number] Mitzi Fallon MD [facility] [address] [address] 12/07/2017 11:14:17 12/07/2017 13:38:20 Generalized anxiety disorder 09330882 F41.1 PARVEZ vs. Panic disorderGA D 7: [...] for emergency use only. F/u 6 weeks [id number] Cait Parrish MD [facility] [address] [address] 12/15/2017 10:35:54 12/16/2017 13:05:20 Generalized anxiety disorder 77607311 F41.1 Mixed anxiety and depressive disorder +/- [...] visit- consider counseling /CBT- encouraged daily exercise [id number] Cait Parrish MD [facility] [address] [address] 05/04/2018 12:07:52 05/04/2018 13:54:54 Right upper quadrant pain 291154755 R10.11 Suspect right upper quadrant pain secondary to cholelithi asis will get CMP and ultrasound to evaluate. Abnormal u terine bleeding 5876078790 9100 N93.9 Patient has experience d frequent [...] the right choice. Generalize d anxiety disorder 71617274 F41.1 Patient reports her symptoms have been fairly well controlled on the sertraline however continues to experience a dizziness sensation with taking the 50 mg. Patient reports discontinu ed the 50 and has been taking 25 mg over the past month and this has alleviated the dizziness sensation. -Will decrease sertraline to 25 mg daily -Continue hydroxyzin e at 25 mg as needed [id number] Afsaneh Lebron MD [place] [address] [address] [address] 06/14/2019 11:45:29 06/15/2019 09:33:46 Menorrhagia 272635872 N92.0 Pt reports irregular menses since having Nexplanon placed in 09/2016. Reports menses occur for around 3 months at a time. Uses 3-4 pads/day.- Will check CBC and evaluate for anemia given prolonged bleeding-W ill remove Nexplanon today. Pt aware that bleeding may still persist despite removal Removal of subcutaneous contraceptive 304466916 Z30.46 Nexplanon in left UE. Pt desired [...] without complicati on Generalize d anxiety disorder 31389436 F41.1 Previously on Zoloft but self discontinu ed because she felt it made her too tired. Currently taking Hydroxyzin e HCl 25mg as needed for symptoms-W ill start Lexapro 5mg. Advised patient to take 5mg for 1 week and if tolerating well can increase to 10mg dailyRTC 4-6 weeks Seborrheic dermatitis of scalp 578216252 L21.0 Pt requesting shampoo for dandruff and dry scalp Tobacco user 869171615 Z 72.0 [facility] Pt precontemp lative at [facility]ist adarsh [id number] [facility] [address] [address] 09/14/2019 11:30:32 09/19/2019 11:40:16 Generalized anxiety disorder 16841641 F41.1 Pt previously on Zoloft and Lexapro but self discontinu ed both medication s due to side effects. Pt would still like to proceed with trying medication to help with anxiety.-W ill start Effexor 75mg daily-Cont inue Hydroxyzin e as needed for severe anxietyRTC in 3 months Seborrheic dermatitis of scalp 681205932 L21.0 Improving with Ketoconazo le. Will refill medication [id number] Evelin Gould [facility] [address] [address] 12/12/2019 12:16:23 12/15/2019 07:53:48 Generalized anxiety disorder 92133756 F41.1 Chronic, improvingP t reports significan t improvemen t with Effexor. Reports some withdrawal symptoms when not taking medication which is expected. Discussed importance of taking medication daily.-Con tinue Effexor 75mg. Will leave at current dose.-Repe at PARVEZ 7 at subsequent visitRTC in 3 months [id number] Kanchan Cummings [facility] [address] [address] 12/20/2019 11:46:38 12/21/2019 09:33:49 Vomiting of 30341087 O21.9 Pt to start pyrodoxine and doxylamine today.Eat small meals.Eat foods that seem appealing, do not force eat unappealin g foods.F/u in 2 weeks. [id number] MD [facility] [address] [address] 12/25/2019 16:28:43 12/28/2019 00:12:28 Low back pain 926727706 M54.5 Acute, unresolved Pain is associated with abdominal cramping and diarrhea. Low concern for pyelonephr itis or any renal etiology. U/A with small leuk esterase. Given risk of untreated UTI in will start Augmentin. If culture is negative patient can discontinu e medication Viral gastroenteritis 11 3054650 A08.4 Acute, unresolved -Discussed importance of remaining hydrated-S trict ED precaution s provided to patient, if unable to keep water down or maintain hydration then patient should proceed to the ER. Pt reports understand ing-Review ed medication s that are safe to take during - If diarrhea continues can consider c.diff testing given occupation [id number] Isrrael Gaines MD [facility] [address] [address] 01/02/2020 15:39:06 01/03/2020 21:32:44 Nausea 641795056 R11.0 Acute, improvingR ecommend continuing Unisom and B6 nightly as well as jordy candies and small frequent meals. Discussed safety of zofran with patient.-C ontinue zofran PRN-ER precaution s provided to patient Routine an tenatal care 289824504 Z34.91 TVUS performed in clinic. HR appropriat e but unable to establish measuremen t of yolk sac. Gestation sac measuring around 7w6d. Patient will return for official visit and dating ultrasound in 3 weeks. 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 PMH: Anxiety complicate d by: First trimester bleeding requiring Rhogam, history of pre-eclamp samaria and GDM Rh: negative : no IPN labs: normal BMI*: 25-30 Depression screen: negative Flu shot: to be given in season Mar-Oct 1st trimester US: abnormal -subchorio katt hemorrhage , otherwise normal MSAFP: counseling done, declined CF screen: negative -Recommend ASA at 12 weeks for history of pre-E-Cont inue Zoloft-Zof ran PRN nausea RTC in 4 weeks Subchorionic hematoma 60 2029409 O41.8X99 Acute, stable-Hem orrhage appears stable on imaging-Di scussed natural progressio n of subchorion ic hemorrhage . Strict ED precaution s provided to patient Bleeding f rom female genital tract during 5792795821 3270680 O46.91 Acute, resolvedPt received Rhogam in 1st trimester for bleeding. WIll need repeat between 26-28 weeks for Rh- status Elevated blood-pressure reading without diagnosis of hypertension 153486231 R03.0 Pt has history of elevated blood pressure readings prior to . Pt has white coat hypertensi on. Previously tearful during visits when getting blood pressure taken. Patient also has history of pre-eclamp samaria which may make it difficult to differenti ate between chronic hypertensi on and gestationa l hypertensi on. Recommend baseline CMP, A1C and 24 hour urinary protein [id number] Leonarda Mhor MD [facility] [address] [facility] [address] [place] [address] 02/01/2020 12:56:13 02/08/2020 13:12:31 Otalgia of left ear 8261011032 805766 H92.02 24 yo F presents with L otalgia x3 days with radiation to jaw with no other symptoms. On exam, L EAC ceruminous , irrigated. After irrigation , no abnormalit ies on exam. Pain likely due to ear wax.-F/u with PCP as needed [id number] Leonarda Mohr MD [facility] [address] [facility] [address] [place] [address] 02/27/2020 14:46:38 02/28/2020 07:27:25 Past history of pre-eclampsia 5856966576 15133 Z87.59 Patient has multiple elevated blood pressures recorded however on repeat measuremen ts BP usually WNL. Pt has never recieved diagnosis of chronic hypertensi on. Baseline Cr within normal limits. Will get 24 hour urine protein as baseline. 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 PMH: Anxiety complicate d by: First trimester bleeding requiring Rhogam, history of pre-eclamp samaria and GDM Rh: negative : no IPN labs: normal BMI*: 25-30 Depression screen: negative Flu shot: to be given in season Mar-Oct 1st trimester US: abnormal -subchorio katt hemorrhage , otherwise normal MSAFP: counseling done, declined CF screen: negative -Pt currently taking ASA-Contin ue Zoloft-Zof ran PRN nausea-Jorje l send to [facility] given history of Pre-E and GDM RTC in 4 weeks [id number] Haley Frazier DO [facility] [address] [facility] [address] [place] [address] 03/27/2020 11:44:38 03/28/2020 17:18:11 Pain in pelvis 90724909 R10.2 Acute, intermitte ntDDx: UTI vs yeast infection vs round ligament painVagina l discharge on exam however may be physiologi c. U/A not indicative of infection. Reassuring that pain improves after sitting in warm bath. 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 PMH: Anxiety complicate d by: First trimester bleeding requiring Rhogam, history of pre-eclamp samaria and GDM Rh: negative : no IPN labs: normal 1st trimester US: abnormal-s ubchorioni c hemorrhage , otherwise normal, now resolved-C ontinue ASA-Contin ue Zoloft-Has upcoming appointmen t on 04/03 with [facility] and for anatomy scan Routine care as below - 20 wk anatomy ultrasound - 26-28 wk Rhogam shot - 28 wk CBC, GTT, Tdap, repeat dep screen - 32 wk repeat STI screening (if high risk) - 35-37 wk GBS neg/pos; confirm vertex position w/ bedside US - 39 wk -- SVE, optional membrane sweeping, consider IOL planning RTC in 4 weeks [id number] Cait Parrish MD [facility] [address] [facility] [address] [place] [address] 04/25/2020 15:29:56 04/26/2020 09:23:58 Routine care 239616617 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 No red flag symptoms.- Start bowel regimen: scheduled colace, miralax, and OTC fiber- Strict L&D precaution s given- Abdominal binder for uterine support- RTC in [address] Franco [id number] Leonarda Mohr MD [place] [address] [address] 04/29/2020 11:39:05 04/30/2020 07:51:15 Vulval pain 538929964 R10.2 Prev healthy 24 pt at 23w4d [...] not limited to worsening pain/redne ss/swellin g/fevers/c [place] [id number] Leonarda Mohr MD [place] [address] [address] 04/30/2020 11:41:17 05/01/2020 13:12:11 Vulval pain [id number] R10.2 Prev healthy 24 pt at 23w presents for L labia minora pain and swelling x1 day, resolved with warm shower, cold compress and 1 day of keflx & acyclovir. DDx developing abscess-D/ c acyclovir - unlikely HSV given no lesions - will f/u on HSV swab-Luis Fernando nue keflex-Dec lining exam today Pain in lower limb 26710 006 M79.606 B/L LE pain at night x2 days w/o swelling, tenderness . Normal exam. Likely fatigue vs muscle tightness. 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 PMH: Anxiety complicate d by: First trimester bleeding requiring Rhogam, history of pre-eclamp samaria and GDM Rh: negative : no IPN labs: normal 1st trimester US: abnormal-s ubchorioni c hemorrhage , otherwise normal, now resolved-C ontinue [...] consider IOL planning RTC in 4 weeks [id number] Haley Frazier DO [facility] [address] [address] 05/23/2020 09:48:59 05/24/2020 14:56:57 Routine care [id number] 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 PMH: Anxiety complicate d by: First trimester [...] 4 weeks Administra tion of influenza vaccine [id number] Z23 [id number] Cait Parrish MD [facility] [address] [address] 06/03/2020 11:33:04 06/04/2020 10:30:00 Routine care [id number] 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 PMH: Anxiety complicate d by: First trimester [...] IOL planning RTC in 4 weeks Sciatica [id number] M54.30 Acute, unresolved , stableNo red flag symptomsEx am and symptoms consistent with sciatica- Discussed starting exercises, handout and informatio n given- RTC if no improvemen t Active or passive immunization [id number] Z23 [id number] Deidre Preston MD [place] [address] 3 [facility] [address] [place] [address] 06/12/2020 11:32:58 06/13/2020 08:05:16 Sciatica 58712913 M54.30 Acute, unresolved , stableNo red flag symptoms- Discussed continuing exercises and stretches - Continue flexeril and lidocaine patches, consider repeating 1 week course if symptoms do not improve- Referral to PT placed [id number] Leonarda Mohr MD [place] [address] 3 [facility] [address] [place] [address] 06/21/2020 10:25:17 06/24/2020 08:56:06 Routine care [id number] 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 [...] CMP but will obtain to be complete [id number] Gilberto Rosado MD [place] [address] 3 [facility] [address] [place] [address] 06/26/2020 11:24:57 06/27/2020 07:42:52 Routine care [id number] Z34.89 yo female @ 31+6w with CRISTIAN: based on LMP and c/w FTUS PMH: Anxiety complicate d by: First trimester [...] 2 weeks for LETICIA care Plantar fasciitis 822361 003 M72.2 Bilateral foot pain, physical exam consistent with plantar fasciitis pain- advised to use frozen water bottles to massage and roll out bottom of feet- gave stretches- may use tylenol as needed- reassuranc e given [id number] Cait Parrish MD [facility] [address] [address] 07/08/2020 11:06:08 07/09/2020 09:47:40 Routine care [id number] Z34.89 yo female @ 31+6w with CRISTIAN: [id number] based on LMP and c/w FTUS PMH: Anxiety complicate d by: First trimester [...] in 2 weeks for LETICIA care Sciatica 77596711 M54.30 Acute, unresolved , stableNo red flag symptoms- Discussed continuing exercises and stretches - PT informatio n printed- Patient requesting refill for flexeril; PAT discussed [id number] MD Yelitza Mathias 3 [facility] [address] [place] [address] 07/16/2020 16:52:29 07/17/2020 09:39:01 Routine care [id number] 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 Patient had [...] BP monitoring . 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 Most recent PreE labs on 07/22 were negative although Pr/Cr ratio continues to rise. Most recent ratio 0.28. Pt will continue weekly preE labs as well as NST on 07/26 and 07/29. Reviewed signs/symp toms of PreE. Strict precaution s provided to patient Tachycardia 6205735 R00. 0 Chronic, stablePt continues to be tachycardi c between 115-120. Most likely associated with and anemia. Encouraged compliance with iron as patient has not been taking it. Encouraged hydration [id number] [facility] [address] [address] 08/05/2020 13:47:40 08/06/2020 07:59:25 -induced hypertension 76817956 O13.9 Now resolved. Recently diagnosed with gestationa l hypertensi on in past months. Induced at 37 weeks on 08/01 and is now . Most recent PreE labs on L&D admission were negative and Pr/Cr ratio trended down since diagnosis. Most recent ratio 0.12. No red flag symptoms. Hypertensi on resolved and continues to be normal today.- F/U visit in 2 weeks as planned [id number] Leonarda Mohr MD [place] [address] [address] [facility] [address] [place] [address] 08/28/2020 11:10:43 09/02/2020 09:11:34 Essential hypertension 76242569 I10 New diagnosisP t with history of gestationa l hypertensi on during multiple pregnancie s. BP today remains elevated. No concern for PreE at this time. ER precuation s provided to patient-Wi ll start Amlodipine 5mgRTC in 1 month for blood pressure check state 1678584 1 Z39.2 [place] negative [id number] Gilberto Rosado MD [place] [address] [address] 09/12/2020 16:24:22 09/16/2020 10:29:21 state 48810678 Z39.2 6 weeks , delivered by - continue to assess for mood/depre ssion at each visit. [place] negative today - bonding well with baby - control none. Pt currently declines control as she is in a same sex relationsh ip - Advised if she is experienci ng exhaustion , appetite or sleep disturbanc es, mood swings, anxiety, or feeling overwhelme d, call the office for support and resources. Essential hypertension 14777403 I10 Pt with history of gestationa l hypertensi on during multiple pregnancie s. Recently started on Amlodipine 5mg. BP today within normal limits-Con tinue Amlodipine RTC in 3 months [id number] Cait Parrish MD [place] [address] [address] 11/08/2020 16:49:49 11/11/2020 12:06:14 Contraception care management 317100644 Z30.9 Discussed contracept ion options with patient including risks/bene fits of each. Pt opting for IUD. Plan for Mirena once approved by insurance [id number] Evelin Gonzalez DO [place] [address] [address] 12/19/2020 11:20:32 12/23/2020 13:24:17 Contraception care management 285919059 Z30.9 After risks/bene fits of IUD placement were reviewed IUD was inserted without complicati ons -Recommend Ibuprofen 600mg q6h Essential hypertension 59205248 I10 Chronic, uncontroll ed Pt previously discontinu ed medication due to blood pressure being in normal range. History of Pre-E in multiple pregnancie s. Pt likely has underlying chronic HTN -Restart Amlodipine 5mg RTC in 3 months [id number] Nikole Walsh MD [place] [address] [address] 04/01/2021 17:03:21 04/07/2021 12:55:25 Active or passive immunization 252415707 Z23 Essential hypertension 99890371 I10 Chronic, controlled BP at goal today off of medication . Pt has history of Pre-E in multiple pregnancie s, most recently 8 months ago. This may attribute to previously elevated blood pressures post . Will continue to monitor off medication RTC in 6 months [id number] JAEMEL GODINEZ MD [place] [address] [address] 04/30/2021 08:30:24 05/05/2021 09:12:59 Suspected COVID-19 073765403 Z03.89 - If symptoms worsen discussed going [...] isolation, good hand hygeine, washing soap water/hand dramatic art teacher, cleaning household items, staying well hydrated, OTC medication s, as well as rest. Avoid leaving the house unless needs to be evaluated in ER, avoiding public places, public transporta tion. [id number] Iglesia sharma MD [place] [address] [address] 06/10/2021 13:28:21 06/12/2021 09:50:38 Muscle pain 81145269 M79.10 Acute, unresolved 2/2 COVID infection. Explained [...] or if swelling or erythema develops COVID-19 617560471 U07.1 [id number] Deidre Pretson MD [place] [address] [address] 09/02/2021 09:24:36 09/03/2021 10:27:03 Upper respiratory infection 79947437 J06.9 Acute, stable- Continue support care w/ OTC cough suppresant s and gentle hydration as tolerated. - Recommend getting covid tested and isolate per CDC protocol- Discussed management plan including risk/benef its and return precaution s. Pt voiced understand ing. All questions answered [id number] [facility] [address] [address] 11/04/2021 09:23:04 11/05/2021 07:53:31 Contraception care management 172933598 Z30.9 Pt requesting IUD removal due to adverse effects. Plan for removal 11/06. Discussed alternativ e options to control bleeding in the future such as OCP. Will discuss more at upcoming visit [id number] Gilberto [facility]ado [facility] [address] [address] 11/06/2021 12:07:33 11/06/2021 17:00:28 Contraception care management 246719807 Z30.9 IUD removed intact without complicati ons. Declines additional forms of control today [id number] JAMEEL GODINEZ MD [place] [address] [address] 11/27/2021 12:09:45 12/01/2021 12:58:22 Anxiety 27779555 F41.9 Chronic, uncontroll edGAD-7: 16-Will restart Venlafaxin e 75mg daily as this provided patient benefit in the past-Resta rt Hydroxyzin e TID PRN-Recomm end counseling . Pt not interested at this timeRTC in 1 month [id number] Isrrael Gaines MD [facility] [address] [address] 04/08/2022 10:05:32 04/09/2022 09:01:39 Dysuria 03660155 R30.9 Acute, unresolved .Prescribe d macrobid yesterday through exchange for acute dysuria. Likely UTI with possible yeast infection. -Continue Macrobid course through end of treatment- UA + UCx ordered.-N uswab ordered.-W ill call patient with results. [id number] Kalie carreno MD [facility] 47 3 [facility] [address] [place] [address] 05/22/2022 14:54:26 05/26/2022 08:46:25 Contraception care 428995538 Z30.40 Currently on no contracept ion. Previously [...] nexplanon Screening for malignant neoplasm of cervix 932318723 Z12.4 Per chart review, last pap smear in 2019 and was normal. Next pap smear in 12/2022. [id number] Shawn Cruz MD [facility] [place] [address] [place] [address] 11/29/2023 14:26:57 11/29/2023 15:45:33 Anxiety 35760045 F41.9 Screening for cardiovascular system disease 501360757 Z13.6 Health Concerns Section Related Observation LastModified by Organization Detai ls LastModified Time None Recorded Concern Status LastModified by Organization Details LastModified Time None Recorded Advance Directives Directive None Recorded Payers Insurance Date Sequence Insurance Name Policy Number Policy Abreu Covered Member ID Abreu Member ID Guarantor Name 03/31/2024 1 [facility] - DOS ON OR AFTER 21 (MEDICAID REPLACEMENT - HMO) Genesis Diallo [id number] Genesis Sargent 04/01/2021 1 [facility] - DOS PRIOR TO 2021 (MEDICAID REPLACEMENT - HMO) Genesis Diallo [id number] Genesis Sargent Notes Date Note Type Note [...] time Gilberto Rosado MD Attn: [address]ing[address] [place], [address], [facility] [place] 11/07/2021 08:54:21 11/27/2021 text/html Pt presents to [...] diarrhea JAMEEL GODINEZ MD Attn: [address] [place], [address], [facility] 12/07/2021 19:45:05 04/08/2022 text/html Patient presents for vaginal discharge and dysuria for the past 3 days. Discharge is whitish in color. Also having itchiness. No odor. No hematuria. Some suprapubic pain. Denies fevers, chills, cp, sob, n/v/d. Isrrael Gaines MD Attn: [address] [place], [address], [facility] [place] 04/15/2022 09:07:26 05/22/2022 text/html 27 yo; PMHx [...] soon. Kalie Riojas MD Attn: [address] [place], [address], [facility] 05/25/2022 14:38:06 11/29/2023 text/html 28-year-old with a history of anxiety like to go back on Zoloft because he is experiencing that anxiety again no SI or HI allergies none surgeries none current medications none family history mother with lupus hypertension and seizure disorder socially does not smoke denies alcohol or drugs Works for [employer] she starts next Shawn Cruz MD Attn: [address]ing[address] [place], [address], [facility] 11/29/2023 23:09:00 OBGyn Episode Ob Episode Information Episode Created Date Number of Fetuses Patient Bloodtype Patient rh Status Prepregnancy Weight lbs Domestic Partner Domestic Partner Phone 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 12/27/19 20 1 A Negative CLOSED Fetus Data First Name Last Name Admitted to NICU Weight (g) Sex Living Outcome Pediatric Complications Fetus ID Race Codes Race Delivery Type [id number] Problems Problem Notes Problem Name Start Date End Date Resolution Snomed Code Not e Plantar fasciitis 06/26/2020330814471 Cristian Calculation Initial Cristian Date Initial Exam [...] Weight in lbs Pre/Post Dialysis Refused Weight 148.323553548685 BP Diastolic BP Location Tested BP Systolic BP Type 80 150 sitting Fetus Heart Rate Present Fetus Movement Comments Flowsheet Date 01/02/2020 Smith Score Blood Edema Fundus Height Fundus Units Glucose Ketones Leukocytes Nitrite Labor Signs Protein Cervic Dilation Cervic Effacement Cervic Station Type Weight in lbs Pre/Post Dialysis Refused Weight 146.835943355226 BP Diastolic BP Location Tested BP Systolic BP Type 68 130 sitting Fetus Heart Rate Present Fetus Movement Comments Flowsheet Date 01/23/2020 Smith Score Blood Edema Fundus Height Fundus Units Glucose Ketones Leukocytes Nitrite Labor Signs Protein Cervic Dilation Cervic Effacement Cervic Station Type Weight in lbs Pre/Post Dialysis Refused Weight 145.9112225345 BP Diastolic BP Location Tested BP Systolic BP Type 74 124 sitting Fetus Heart Rate Present Fetus Movement Comments Flowsheet Date 02/01/2020 Smith Score Blood Edema Fundus Height Fundus Units Glucose Ketones Leukocytes Nitrite Labor Signs Protein Cervic Dilation Cervic Effacement Cervic Station Type Weight in lbs Pre/Post Dialysis Refused Weight 141.728535647694 BP Diastolic BP Location Tested BP Systolic BP Type 76 114 sitting Fetus Heart Rate Present Fetus Movement Comments Flowsheet Date 02/27/2020 Smith Score Blood Edema Fundus Height Fundus Units Glucose Ketones Leukocytes Nitrite Labor Signs Protein Cervic Dilation Cervic Effacement Cervic Station Type Weight in lbs Pre/Post Dialysis Refused Weight 145.035661579212 BP Diastolic BP Location Tested BP Systolic BP Type 72 112 sitting Fetus Heart Rate Present Fetus Movement Comments Flowsheet Date 03/27/2020 Smith Score Blood Edema Fundus Height Fundus Units Glucose Ketones Leukocytes Nitrite Labor Signs Protein Cervic Dilation Cervic Effacement Cervic Station Type Weight in lbs Pre/Post Dialysis Refused Weight 149.688655591591 BP Diastolic BP Location Tested BP Systolic BP Type 82 120 sitting Fetus Heart Rate Present Fetus Movement Comments Flowsheet Date 04/25/2020 Smith Score Blood Edema Fundus Height Fundus Units Glucose Ketones Leukocytes Nitrite Labor Signs Protein Cervic Dilation Cervic Effacement Cervic Station Type Weight in lbs Pre/Post Dialysis Refused Weight 156.580682534265 BP Diastolic BP Location Tested BP Systolic BP Type 70 122 sitting Fetus Heart Rate Present Fetus Movement Comments Flowsheet Date 04/29/2020 Smith Score Blood Edema Fundus Height Fundus Units Glucose Ketones Leukocytes Nitrite Labor Signs Protein Cervic Dilation Cervic Effacement Cervic Station Type Weight in lbs Pre/Post Dialysis Refused Weight 157.841104892888 BP Diastolic BP Location Tested BP Systolic BP Type 70 124 sitting Fetus Heart Rate Present Fetus Movement Comments Flowsheet Date 04/30/2020 Smith Score Blood Edema Fundus Height Fundus Units Glucose Ketones Leukocytes Nitrite Labor Signs Protein Cervic Dilation Cervic Effacement Cervic Station Type Weight in lbs Pre/Post Dialysis Refused Weight 159.260227362055 BP Diastolic BP Location Tested BP Systolic BP Type 74 120 sitting Fetus Heart Rate Present Fetus Movement Comments Flowsheet Date 05/02/2020 Smith Score Blood Edema Fundus Height Fundus Units Glucose Ketones Leukocytes Nitrite Labor Signs Protein Cervic Dilation Cervic Effacement Cervic Station Type Weight in lbs Pre/Post Dialysis Refused Weight 159.620242433703 BP Diastolic BP Location Tested BP Systolic BP Type 70 110 Fetus Heart Rate Present Fetus Movement Comments Flowsheet Date 05/23/2020 Smith Score Blood Edema Fundus Height Fundus Units Glucose Ketones Leukocytes Nitrite Labor Signs Protein Cervic Dilation Cervic Effacement Cervic Station Type Weight in lbs Pre/Post Dialysis Refused Weight 165.443609066084 BP Diastolic BP Location Tested BP Systolic BP Type Fetus Heart Rate Present Fetus Movement Comments Flowsheet Date 06/03/2020 Smith Score Blood Edema Fundus Height Fundus Units Glucose Ketones Leukocytes Nitrite Labor Signs Protein Cervic Dilation Cervic Effacement Cervic Station Type Weight in lbs Pre/Post Dialysis Refused Weight 172.645868389377 BP Diastolic BP Location Tested BP Systolic BP Type 64 120 sitting Fetus Heart Rate Present Fetus Movement Comments Flowsheet Date 06/12/2020 Smith Score Blood Edema Fundus Height Fundus Units Glucose Ketones Leukocytes Nitrite Labor Signs Protein Cervic Dilation Cervic Effacement Cervic Station Type Weight in lbs Pre/Post Dialysis Refused Weight 174.868534473737 BP Diastolic BP Location Tested BP Systolic BP Type 68 122 sitting Fetus Heart Rate Present Fetus Movement Comments Flowsheet Date 06/21/2020 Smith Score Blood Edema Fundus Height Fundus Units Glucose Ketones Leukocytes Nitrite Labor Signs Protein Cervic Dilation Cervic Effacement Cervic Station Type Weight in lbs Pre/Post Dialysis Refused Weight 177.353042277479 BP Diastolic BP Location Tested BP Systolic BP Type 64 126 sitting Fetus Heart Rate Present Fetus Movement Comments Flowsheet Date 06/26/2020 Smith Score Blood Edema Fundus Height Fundus Units Glucose Ketones Leukocytes Nitrite Labor Signs Protein Cervic Dilation Cervic Effacement Cervic Station 33 cm Type Weight in lbs Pre/Post Dialysis Refused Weight 178.060534352907 BP Diastolic BP Location Tested BP Systolic BP Type 68 130 sitting Fetus Heart Rate Present A 152 Present Fetus Movement A Yes Comments Flowsheet Date 07/08/2020 Smith Score Blood Edema Fundus Height Fundus Units Glucose Ketones Leukocytes Nitrite Labor Signs Protein Cervic Dilation Cervic Effacement Cervic Station Type Weight in lbs Pre/Post Dialysis Refused Weight 182.695114287654 BP Diastolic BP Location Tested BP Systolic BP Type 70 124 sitting Fetus Heart Rate Present Fetus Movement Comments Flowsheet Date 07/16/2020 Smith Score Blood Edema Fundus Height Fundus Units Glucose Ketones Leukocytes Nitrite Labor Signs Protein Cervic Dilation Cervic Effacement Cervic Station Type Weight in lbs Pre/Post Dialysis Refused Weight 186.611140556821 BP Diastolic BP Location Tested BP Systolic BP Type 84 140 sitting Fetus Heart Rate Present Fetus Movement Comments Flowsheet Date 07/24/2020 Smith Score Blood Edema Fundus Height Fundus Units Glucose Ketones Leukocytes Nitrite Labor Signs Protein Cervic Dilation Cervic Effacement Cervic Station Type Weight in lbs Pre/Post Dialysis Refused Weight 186.43505185789 BP Diastolic BP Location Tested BP Systolic [...] Weight in lbs Pre/Post Dialysis Refused Weight 172.402623215933 BP Diastolic BP Location Tested BP Systolic BP Type 90 142 sitting 92 142 sitting Fetus Heart Rate Present Fetus Movement Comments Flowsheet Date 09/12/2020 Smith Score Blood Edema Fundus Height Fundus Units Glucose Ketones Leukocytes Nitrite Labor Signs Protein Cervic Dilation Cervic Effacement Cervic Station Type Weight in lbs Pre/Post Dialysis Refused Weight 169.124669626818 BP Diastolic BP Location Tested BP Systolic [...]
[2025-02-17] MEDS: TERBUTALINE SULFATE 1 MG/ML VIAL 0.25 MG SUB-Q ×2 (07:07→07:36)
[2025-02-17 07:18] LABS: Fetal Fibronectin Positive
[2025-02-17 07:28] LABS: Add Urine Microscopic? YES; Appearance Urine Clear (Clear); Glucose Urine UA Negative (Negative); Leukocyte Esterase Ur Trace LEU/UL (Negative); Nitrate Urine Negative (Negative); Non Pathogenic Casts 0-2; Specific Grav Ur 1.007 (1.001-1.035)
[2025-02-17 08:18] LABS: Hematocrit 29.8 % (37.0-47.0); Hemoglobin 9.3 g/dL (12.0-15.0); Immature Granulocyte Percent A 1.5 % (0-0.5); Immature Platelet Fraction Pct 32.5 % (0.9-11.2); Lymphocytes Absolute Auto 1.93 K/mm3 (0.9-3.2); Mean Corpuscular HGB Conc 31.2 g/dl (32-36); Mean Corpuscular Hemoglobin 27.1 pg (26-34); Mean Corpuscular Volume 86.9 fl (80-100); Nucleated Red Blood Cells Absolute Auto 0.000 K/mm3 (0.0-0.012); Nucleated Red Blood Cells Perc 0.0 % (0.0-0.2); Platelet Count Result 63 k/mm3 (150-375); Red Blood Count 3.43 M/mm3 (4.2-5.4); White Blood Count 12.3 K/mm3 (4.5-10.0)
[2025-02-17] MEDS: LACTATED RINGERS 1,000 ML 125 ML IV CONT ×2 (08:25→09:34)
[2025-02-17 08:36] LABS: Alanine Aminotransferase 21 U/L (6-35); Albumin Level 3.4 g/dL (3.5-5.1); Alkaline Phosphatase 73 U/L (38-126); Anion Gap 8 mmol/L (4-12); Aspartate Amino Transferase 33 U/L (14-36); Bilirubin,Total 0.3 mg/dL (0.2-1.3); Blood Urea Nitrogen 3 mg/dL (7-17); Calcium 9.3 mg/dL (8.4-10.2); Carbon Dioxide 21 mmol/L (22-30); Chloride 107 mmol/L (98-107); Estimated Glomerular Filt Rate > 60; Glucose 137 mg/dL (65-110); Potassium 3.3 mmol/L (3.4-5.0); Sodium 136 mmol/L (137-145); Total Protein 6.6 g/dL (6.3-8.2); Uric Acid 3.4 mg/dL (2.5-7.5)
[2025-02-17 09:08] LABS: Total Protein Urine Random 15 mg/dL; Ur Ttl Prot Creatinine Ratio 0.34 mg/mg (0-0.20)
--- NOTE | 2025-02-17 10:33 | P.HP_ITS ---
H&P: HPI History of Present Illness Date/Time: 02/17/25 10:33 Chief Complaint: contractions Narrative: Genesis is a 29yo @ 31.6wks who presented to L&D with painful contractions every 3 minutes that woke her up this morning. She was found to be yazmin every 3 minutes. FFN was positive. She was found to be 1cm. She was given 2 doses of terb before her contractions spaced out. She was noted to have some bleeding; OB US showed normal fundal placenta, cervix measuring 3.9-4.3cm, cephalic baby, normal GROVER. FHTs has been category 1. She was then found to have moderate range BPs and PIH w/u was sent, P/C of 0.34. On labs she was noted to have plt count of 63k. She has a h/o thrombocytopenia and had plts of 86k in November 2024, she saw MFM who recommended frequent blood draws and she has not completed any of them. Her is complicated by: - H/o GDM- diet controlled - H/o PP PreE- low dose ASA - Anxiety- sertraline, hydroxyzine - Tobacco use - Pre-eclampsia diagnosed 6d - Severe thrombocytopenia - additional testing ordered, Monthly CBC until 30 wk, every two wks until 36 wks, weekly until delivery - (pt has not been completing labs draws) - 86k (11/2024) --> 63k (02/17/25) Review of Systems Constitutional: Constitutional: Denies chills, Denies fever(s) and Denies headache(s) Eyes: Eyes: Denies change in vision ENT: Denies headache(s) Cardiovascular: Cardiovascular: Denies chest pain and Denies dyspnea Respiratory: Respiratory: Denies dyspnea Gastrointestinal: Gastrointestinal: Reports abdominal pain Genitourinary: Genitourinary: Reports abnormal vaginal bleeding, Reports pelvic pain and Denies vaginal discharge Neurologic: Denies headache(s) Psychiatric: Psychiatric: Denies anxiety and Denies depression [facility], [facility] Past Medical History Medical History Vaginal discharge Anxiety Family History Family History Father Hypertension Mother Hypertension Social History Social History Smoking status: Former smoker Alcohol intake: never Substance use: former Substance use type: marijuana Do You Feel Safe in your Home?: Yes Lack of Transportation: No Lack of Food: Never True Current Housing: I Have Housing Concerned About Future Housing: No Difficulty Paying Gas/Electric Bills: No Difficulty Paying for Meds: No Currently Unemployed: No Education: High School Diploma/GED Difficulty w/ Childcare or Family Care: No Living arrangements: with family Occupation/Education: unemployed Gender identity (if verbalized by the patient): Female Sexual Orientation (if Verbalized by the Patient): Straight or Heterosexual Spiritual care concerns: No Meds Home Medications and Allergies Home Medications ?Medication ?Instructions ?Recorded ?Confirmed ?Type hydroxyzine HCl 25 mg tablet 25 mg PO DAILY 09/21/24 02/17/25 History vits no.126-ferrous fum 1 tablet PO DAILY 09/21/24 02/17/25 History 28 mg iron-folic acid 800 mcg tablet (Classic ) Allergies Allergy/AdvReac Type Severity Reaction Status Date / Time No Known Allergies Allergy Verified 02/06/25 10:09 Vital Signs Vital Signs - 24 hr 02/17/25 06:30 02/17/25 06:45 02/17/25 07:15 Temperature 98.1 F Pulse Rate 101 H 98 111 H Blood Pressure 143/97 H 145/85 H 150/89 H 02/17/25 07:30 02/17/25 08:30 02/17/25 09:00 Temperature Pulse Rate 106 H 108 H 115 H Blood Pressure 140/91 H 121/65 140/84 02/17/25 09:30 02/17/25 10:00 Temperature Pulse Rate 113 H 115 H Blood Pressure 137/82 121/55 L Exam Const: General: cooperative and no acute distress O rientation/consciousness: patient oriented x3 Resp: Effort & Inspection: normal respiratory effort Cardio: Rate: regular rate GI: GI Palp: No abdominal tenderness : Other: FHT's: 120's/ mod sofie/ + accels/ no decels - cat 1 TOCO: ctxs q3min --> spaced out Cervix: 1.5/50/-3, soft, mid position, Membranes: intact Presentation: cephalic Skin: General skin exam: normal color Neuro: General: patient oriented x3 Extrem: General: normal to inspection Psych: Appearance: grossly normal Affect: normal affect Attitude: cooperative H&P: Results Labs Labs: Short CBC 02/17/25 Range/Units 08:07 WBC 12.3 H (4.5-10.0) K/mm3 Hgb 9.3 L (12.0-15.0) g/dL Hct 29.8 L (37.0-47.0) % Plt Count 63 L (150-375) k/mm3 BMP 02/17/25 08:07 Sodium 136 L Potassium 3.3 L Chloride 107 Carbon Dioxide 21 L BUN 3 L Creatinine 0.46 L Glucose 137 H Calcium 9.3 Liver Function 02/17/25 Range/Units 08:07 Total Bilirubin 0.3 (0.2-1.3) mg/dL AST 33 (14-36) U/L ALT 21 (6-35) U/L Alkaline Phosphatase 73 (38-126) U/L Albumin 3.4 L (3.5-5.1) g/dL Urine 02/17/25 Range/Units 07:00 Urine Color Yellow (Yellow) Urine Appearance Clear (Clear) Urine pH 6.5 (5.0-9.0) Ur Specific [place] 1.007 (1.001-1.035) Urine Protein Negative (Negative) mg/dL Urine Glucose (UA) Negative (Negative) mg/dL Assessment and Plan Assessment and plan (1) contractions: Code(s): O47.00 - False labor before 37 completed weeks of gestation, unspecified trimester Status: Acute (2) Severe thrombocytopenia: Code(s): D69.6 - Thrombocytopenia, unspecified Status: Acute (3) Pre-eclampsia: Qualifiers: Trimester: third trimester Qualified Code(s): O14.93 - Unspecified pre- eclampsia, third trimester Code(s): O14.90 - Unspecified pre-eclampsia, unspecified trimester Status: Acute Plan - Pt presented with contractions; now spaced out after IV fluids, terb x2 - Small amount of vaginal bleeding when wiping; US reassuring - But also noted to have moderate range BPs; labs confirm pre-eclampsia - Severe thrombocytopenia noted, 63k (prior in 11/2024 was 86) - Recommending transfer to [facility]; called and they accepted. They would like repeat cervical exam if >2cm dilated, would then recommend ampicillin, magnesium sulfate and betamethasone - Dr. Carie Weir accepted patient transfer
--- NOTE | 2025-02-17 13:08 | OBADM ---
This patient, Genesis Sargent, admitted to the OB room OB Post 116 for observation. Patient/family oriented to hospital policies and general routines including ID bracelet, bed and alarms, visiting hours, pain management, procedures, bathroom and other care routines, personal items, smoking policy, room service/diet, and visiting hours. Patient/Family are encouraged to report perceived risks to care and to ask questions if they do not understand what they are told or what they should do.
--- NOTE | 2025-02-19 09:21 | P.TS_ITS ---
Transfer Discharge Sum: Prov Provider Date of admission: 02/17/25 06:08 Primary care physician: UNKNOWN,DOCTOR Admitting clinician: Nabila Dong MD Attending physician on admission: Nabila Dong Attending physician on discharge: Nabila Dong Discharging clinician: Nabila Dong Anticipated date of transfer: 02/17/25 Receiving physician/facility: [facility] team DS: Admitting Diagnosis Discharge Date 02/17/25 Admitting Diagnosis contractions DS: Discharge Diagnosis Discharge Diagnosis (1) Severe thrombocytopenia: Code(s): D69.6 - Thrombocytopenia, unspecified Status: Acute (2) Pre-eclampsia: Qualifiers: Trimester: third trimester Qualified Code(s): O14.93 - Unspecified pre- eclampsia, third trimester Code(s): O14.90 - Unspecified pre-eclampsia, unspecified trimester Status: Acute (3) contractions: Code(s): O47.00 - False labor before 37 completed weeks of gestation, unspecified trimester Status: Acute Transfer Discharge Sum: Med Medications Active and Home Medications: Home Medications hydroxyzine HCl 25 mg tablet 25 mg PO DAILY 09/21/24 [History Confirmed 02/17/25] vits no.126-ferrous fum 28 mg iron-folic acid 800 mcg tablet (Classic ) 1 tablet PO DAILY 09/21/24 [History Confirmed 02/17/25] Transfer Discharge Sum: Hosp Hospital Course Hospital course: Genesis is a 29yo @ 31.6wks who presented to L&D with painful contractions every 3 minutes that woke her up this morning. She was found to be yazmin every 3 minutes. FFN was positive. She was found to be 1cm. She was given 2 doses of terb before her contractions spaced out. She was noted to have some bleeding; OB US showed normal fundal placenta, cervix measuring 3.9-4.3cm, cephalic baby, normal GROVER. FHTs has been category 1. She was then found to have moderate range BPs and PIH w/u was sent, P/C of 0.34. On labs she was noted to have plt count of 63k. She has a h/o thrombocytopenia and had plts of 86k in November 2024, she saw [facility] who recommended frequent blood draws and she has not completed any of them. Patient Condition: Stable Time Spent with Patient Time attestation: Total time spent providing and/or coordinating transfer services: Total time spent: Greater than 30 minutes Exam Const: General: cooperative and no acute distress Orientation/consciousness: patient oriented x3 Resp: Effort & Inspection: normal respiratory effort Cardio: Rate: regular rate GI: GI Palp: No abdominal tenderness : Other: FHT's: 120's/ mod sofie/ + accels/ no decels - cat 1 TOCO: ctxs q3min --> spaced out Cervix: 1.5/50/-3, soft, mid position, Membranes: intact Presentation: cephalic Skin: General skin exam: normal color Neuro: General: patient oriented x3 Extrem: General: normal to inspection Psych: Appearance: grossly normal Affect: normal affect Attitude: cooperative
== END 2025-02-17 12:28 | disposition other institution (70) ==
LOC: ANHOBPP 02-19 07:58
PROVIDERS: Admitting Provider Obstetrics & Gynecology; Visit Provider Obstetrics & Gynecology
DX: O47.03 False labor before 37 completed weeks of gestation, third trimester (principal); Z3A.31 31 weeks gestation of pregnancy; O14.93 Unspecified pre-eclampsia, third trimester; D69.6 Thrombocytopenia, unspecified
CPT/HCPCS: 36415; 76815; 80053; 81001; 82570; 82731; 84156; 84550; 85025; 85055; 96360; 96372; A9270; G0378; G0379; J3105; J7120